=== PATIENT | female | born 1960 | race Caucasian/White ===

== ENCOUNTER 2016-11-06 22:38 | Inpatient (IN) | payer OTHER, MEDICARE ==
[~2016-11-06] VITALS: Ht 167.6 cm; Wt 81.6 kg
--- NOTE | 2016-11-06 22:46 | NUR ---
PT BIBA FROM HOME WITH AMS. PER EMS FAMILY STATES PT HAS BEEN ALTERED, CONFUSED AND BARELY SPEAKING SINCE SATURDAY. PER EMS PT ALSO FELL EARLIER FROM WHEELCHAIR. UNKNOWN IF PT HIT HEAD. PT NONVERBAL AT THIS TIME. FAMILY ON THE WAY.
[2016-11-06 22:57] LABS: ABSOLUTE BASOPHIL COUNT 0.1 /CUMM (0.0-0.2); ABSOLUTE EOSINOPHIL COUNT 0.1 /CUMM (0.0-0.7); ABSOLUTE GRANULOCYTE CT 7.9 /CUMM (1.4-6.5); ABSOLUTE LYMPH COUNT 1.2 /CUMM (1.2-3.4); ABSOLUTE MONOCYTE COUNT 0.7 /CUMM (0.10-0.60); BASOPHIL % 0.5 % (0.0-2.0); EOSINOPHIL % 1.4 % (0-5); GRANULOCYTE % 79.3 % (42.2-75.2); HEMATOCRIT 21.8 % (37-47); MEAN CORPUSCULAR HGB 26.3 PG (27.0-31.0); MEAN CORPUSCULAR HGB CONC 31.5 G/DL (33.0-37.0); MEAN CORPUSCULAR VOLUME 83.6 FL (81.0-99.0); MEAN PLATELET VOLUME 8.8 FL (7.4-10.4); RBC DISTRIBUTION WIDTH 28.3 % (11.5-14.5); WHITE BLOOD CELL COUNT 9.9 /CUMM (4.8-10.8)
--- NOTE | 2016-11-06 23:06 | ED GENERAL ADULT ---
History of Present Illness General Chief Complaint: Altered Mental Status Stated Complaint: BIBA WITH AMS Source: patient, family, old records, EMS Exam Limitations: clinical condition, confusion Allergies Coded Allergies: NO KNOWN ALLERGIES (03/13/14) Triage Note: PT BIBA FROM HOME WITH AMS. PER EMS FAMILY STATES PT HAS BEEN ALTERED, CONFUSED AND BARELY SPEAKING SINCE SATURDAY. PER EMS PT ALSO FELL EARLIER FROM WHEELCHAIR. UNKNOWN IF PT HIT HEAD. PT NONVERBAL AT THIS TIME. FAMILY ON THE WAY. Triage Nurses Notes Reviewed? yes HPI: Patient is a 56-year-old female brought in by ambulance for evaluation of confusion. Daughter reports that since Saturday patient has been lethargic, confused, her speech has appeared slurred and her pupils dilated. Patient was found on the floor at home at 9 PM this evening. Patient lives with her boyfriend who is out of the house from 11 AM to 9 PM, unsure what precipitated the fall or how long patient was on the floor for. Patient has a baclofen pump, patient's daughter reports that it was recently filled. Patient takes xarelto for history of DVT. Patient reports that she has not taken any extra doses of her medications. No reported alcohol intake or illicit substance ingestion. No known abnormal bleeding. (DARRYL SILVER,TEAGAN) Vital Signs & Intake/Output Vital Signs & Intake/Output Vital Signs Date Time Temp Pulse Resp B/P Pulse O2 O2 Flow FiO2 Ox Delivery Rate 11/08 0348 98.5 77 18 117/59 97 Nasal 4.0L Cannula 11/08 0256 98.4 100 20 113/57 97 Room Air 11/08 0121 98.5 97 20 99/55 96 Nasal 3.0L Cannula 11/08 0115 98.8 108 20 99/55 98 Nasal 3.0L Cannula 11/08 0000 98.1 87 18 112/53 98 Nasal 4.0L Cannula 11/07 2300 99.7 104 18 104/59 95 Nasal 2.0L Cannula 11/08 2227 99.7 104 18 104/596 95 Nasal 2.0L Cannula 11/07 2199 99.7 11/07 2150 100.6 108 18 99/50 93 Nasal 2.0L Cannula 11/08 2119 98/52 11/07 2036 100.0 11/07 1916 100.2 124 20 100/54 94 Nasal 2.0L Cannula 03/15 1915 100.0 128 20 100/54 95 Nasal 2.0L Cannula 11/07 1600 96.8 96 18 123/68 96 Room Air 11/07 1518 96.7 98 18 123/60 96 Room Air 11/07 1440 97 Room Air 11/07 1205 94.1 84 18 114/76 97 Room Air 11/07 1145 80 18 96/53 96 Room Air 11/07 0815 96.8 84 20 132/74 99 Room Air ED Intake and Output 11/08 0000 11/07 1200 Intake Total 2400 0 Output Total 675 Balance 1725 0 Intake, IV 2400 Intake, Oral 0 Output, Urine 675 Patient 180 lb Weight Reconcile Medications Rivaroxaban (Xarelto) 20 MG TABLET 20 MG PO DAILY BLOOD THINNER (Reported) (DEZ TRAMMELL,KIM Harman) Past History Travel History Traveled to [place] past 21 day No Medical History Any Pertinent Medical History? see below for history Neurological: multiple sclerosis Blood Disorders: DVT Influenza Vaccine: 07/01/09 Surgical History Surgical History: indwelling baclofen pump Psychosocial History Who do you live with Significant Other Services at Home None What is your primary language Mauritian ETOH Use: denies use Illicit Drug Use: denies illicit drug use Family History Hx Contributory? No (TEAGAN GREEN) Review of Systems Review of Systems Constitutional: Denies: chills, fever. EENTM: Reports: no symptoms. Respiratory: Denies: cough, short of breath. Cardiovascular: Reports: peripheral edema (chronic). Denies: chest pain, syncope. GI: Denies: abdominal pain, diarrhea, vomiting. Genitourinary: Reports: no symptoms. Musculoskeletal: Reports: muscle stiffness (chronic). Skin: Reports: no symptoms. Neurological/Psychological: Reports: see HPI, confusion. Denies: headache. Hematologic/Endocrine: Denies: bruising, bleeding. Immunologic/Allergic: Denies: splenectomy. (TEAGAN GREEN) Physical Exam Physical Exam General Appearance: awake, lethargic Head: atraumatic, normal appearance Eyes: Bilateral: normal appearance, PERRL, EOMI. Ears, Nose, Throat: normal pharynx, normal ENT inspection, hearing grossly normal Neck: normal inspection, supple, full range of motion Respiratory: normal breath sounds, chest non-tender, no respiratory distress, lungs clear Cardiovascular: regular rate/rhythm Gastrointestinal: soft, non-tender Rectal: EXTERNAL HEMORRHOID, FECAL IMPACTION RECTALLY, BROWN STOOL HEME-NEGATIVE Back: normal inspection Extremities: 3+ BILATERAL LOWER EXTREMITY EDEMA Neurologic/Psych: awake, disoriented to place and time Skin: skin breakdown to buttocks. exocriations to lower extremities Lymphatic: no anterior cervical ivon Core Measures ACS in differential dx? No CVA/TIA Diagnosis: No Severe Sepsis Present: No Septic Shock Present: No (TEAGAN GREEN) Progress Differential Diagnoses I considered the following diagnoses in my evaluation of the patient: MS exacerbation, ICH, anemia, polysubstance, internal bleed, sepsis, hepatic encephalopathy, seizure, baclofen withdrawal Initial ED EKG: normal sinus rhythm, no acute ischemic st/t changes Hand-Off Endorsed To: DEZ TRAMMELL,KIM Harman Endorsed Time: 4 Pending: CT, labs (TEAGAN GREEN) Plan of Care: Orders Procedure Date/time Status Nothing by Mouth 11/08 B Active CBC WITHOUT DIFFERENTIAL 11/08 0600 Complete Transfer patient to 11/08 0542 Active Lab Add-on Test 11/08 0500 Active TROPONIN LEVEL 11/08 0500 Complete ICU LAB BUNDLE 11/08 0500 Complete EKG 11/08 0500 Active VRE ACTIVE SURVIELLANCE 11/08 0437 Active ACTIVE SURVEILLANCE NARES 11/08 0437 Active BLOOD PRODUCT PICKUP 11/08 0045 Active LEUKOCYTE POOR (PACKED CELLS) 11/08 0021 Active OXYGEN SETUP (GEN) 11/08 UNK Complete Heart Healthy Diet 11/07 D Complete CULTURE,URINE 11/07 2304 Active ARTERIAL BLOOD GAS (GEN) 11/07 2150 Complete LACTIC ACID 11/07 2150 Complete CORTISOL PM 11/07 2150 Complete CBC WITHOUT DIFFERENTIAL 11/07 2150 Complete CALCIUM 11/07 2150 Complete Transfer patient to 11/07 2148 Active TROPONIN LEVEL 11/07 2053 Complete EKG 11/07 1937 Active FingerStick- Glucose 11/07 1929 Active ELECTROENCEPHALOGRAM 11/07 1753 Active Vital Signs 11/07 1532 Active House Staff 11/07 0853 Active Change service to 11/07 0853 Active CYTOLOGY SPECIMEN 11/07 0806 Active Therapeutic Activities 11/07 UNK Complete Therapeutic Exercise 11/07 UNK Complete PT EVAL MOD COMPLEX 30 MIN 11/07 UNK Complete Current Medications Sig/Sydni Start time Last Medication Dose Stop Time Status Admin Acetaminophen 650 MG Q6P PRN 11/07 0430 AC (Tylenol) Laboratory Tests 11/08/16 0600: Anion Gap 5, Estimated GFR > 60, Glucose 80, Calcium 10.1, Phosphorus 2.6, Magnesium 1.7, Total Bilirubin 1.0, AST 42 H, ALT 51, Troponin I 0.08, Albumin 2.7 L, CBC w Diff NO MAN DIFF REQ, RBC 3.05 L, MCV 82.9, MCH 26.7 L, RDW 23.8 H, MPV 9.5, Gran % 77.8 H, Lymphocytes % 13.8 L, Monocytes % 7.3, Eosinophils % 0.5, Basophils % 0.6, Absolute Granulocytes 7.9 H, Absolute Lymphocytes 1.4, Absolute Monocytes 0.7 H, Absolute Eosinophils 0.1, Absolute Basophils 0.1, PUBS MCHC 32.2 L 11/07/16 2252: Lactic Acid 0.6 L, Calcium 9.6, Cortisol PM Sample 20.3 H, CBC w Diff NO MAN DIFF REQ, RBC 2.69 L, MCV 81.2, MCH 26.0 L, RDW 25.6 H, MPV 9.7, Gran % 75.7 H, Lymphocytes % 14.9 L, Monocytes % 7.6, Eosinophils % 0.8, Basophils % 1.0, Absolute Granulocytes 6.8 H, Absolute Lymphocytes 1.3, Absolute Monocytes 0.7 H, Absolute Eosinophils 0.1, Absolute Basophils 0.1, PUBS MCHC 32.0 L 11/07/16 2240: pH 7.43, pCO2 38, pO2 91, HCO3 24, ABG O2 Sat (Measured) 95.0 L, P-50 (Temp Corrected) N, Carboxyhemoglobin 1.0 L, O2 Concentration % 2L, Temperature 99.7, O2 Delivery Method NC, Phlebotomy Draw Site RIGHT RADIAL 11/07/161: Troponin I 0.02 11/07/162051: Troponin I Cancelled Microbiology 11/08 414 UPPER RESP: Surveillance Culture - RECD 11/08 414 GI: Surveillance Culture - RECD 11/08 2307 URINE ROUT: Urine Culture - RECD 11/06/2016 11:38:42 PM: Discussed with Dr. Huber. Patient's daughter consented for blood transfusion for patient after risks and benefits discussed. Signed out to Dr. Huber at shift change with CT scans pending (TEAGAN GREEN) Diagnostic Imaging: Discussed w/RAD: Radiology Read, CT Scan. CXR Impression: PATIENT: FERNY KURTZ PRESENT AGE: 56 PATIENT ACCOUNT NO: [id number] : 60 LOCATION: [facility] ORDERING PHYSICIAN: TEAGAN SILVER SERVICE DATE: 11/06/16 EXAM TYPE: RAD - XRY- PORTABLE CHEST XRAY EXAMINATION: XR PORTABLE CHEST CLINICAL INFORMATION: Change in mental status. COMPARISON: None TECHNIQUE: Portable AP view of the chest was obtained. FINDINGS: Cardiac leads overlie the chest. The lungs are well expanded. Hazy basilar opacities are present. Possible small left pleural effusion. No pneumothorax. The cardiomediastinal silhouette is unremarkable for this technique. Chronic healed left lateral rib fractures are suspected. IMPRESSION: Smaller pleural effusion. Hazy basilar opacities may represent atelectasis or pneumonia. DICTATED BY: VINCENZO PARADA MD DATE/TIME DICTATED: 11/07/16117 FIELD LIABILITY GENERALIST:DIEGO DATE/TIME TRANSCRIBED:11/07/16117 CONFIDENTIAL, DO NOT COPY WITHOUT APPROPRIATE AUTHORIZATION. <Electronically signed in Other Vendor System> SIGNED BY: VINCENZO PARADA MD 11/07/16 012 (DEZ TRAMMELL,KIM Harman) Departure Departure Disposition: STILL A PATIENT Condition: Stable Clinical Impression Primary Impression: Altered mental status Secondary Impressions: Anemia, Hematuria Referrals: AMERICA MAYORGA MD (PCP/Family) Departure Forms: Customer Survey General Discharge Information (TEAGAN GREEN) Admission Note Spoke With: HUSSEIN HODGES MD Documentation of Exam: Documentation of any treatments & extenuating circumstances including Concerns Regarding Discharge (functional status, medication knowledge or non-compliance, living conditions, etc.) that warrant an admission rather than observation: Patient has persistent altered mental status of an unclear etiology. Given this she is a poor candidate for outpatient management she would be incapable of complying or following outpatient treatment instructions. In addition she has a severe anemia of an unclear etiology. I feel the patient requires hospitalization, blood transfusion and a follow-up CBC. She should also have an evaluation of her anemia and GI consultation should be considered. The cause of her altered mental status should also be investigated more thoroughly and neurology consultation should be considered. I feel she'll require a multiple day hospitalization. PA/WINDOW INSTALLATION SUBCONTRACTOR Co-Sign Statement Statement: ED Attending supervision documentation- [x] I saw and evaluated the patient. I have also reviewed all the pertinent lab results and diagnostic results. I agree with the findings and the plan of care as documented in the PA's/WINDOW INSTALLATION SUBCONTRACTOR's documentation. [] I have reviewed the ED Record and agree with the PA's/WINDOW INSTALLATION SUBCONTRACTOR's documentation. [] Additions or exceptions (if any) to the PAs/WINDOW INSTALLATION SUBCONTRACTOR's note and plan are summarized below: [] (DEZ TRAMMELL,KIM Harman) Critical Care Note Critical Care Note Critical Care Time: 30-74 min (DARRYL SILVER,TEAGAN)
[2016-11-06 23:16] LABS: PLATELET COUNT 146 /CUMM (130-400)
--- NOTE | 2016-11-06 23:19 | NUR ---
CRITICAL TEST RESULTS [id number] FERNY KURTZ 56 F TESTS AND RESULTS: HGB 6.9 HCT 21.8 Results received and read back by: DAVID OLSON Results received date and time: 11/06/16 7777 The following provider was notified of the results, and read the results back: NADEEM ANDREWS Notified date and time: 11/06/16 at 6739
--- NOTE | 2016-11-07 00:29 | NUR ---
PT A/O X3. PT ABLE TO FOLLOW COMMANDS. PT ANSWERS QUESTIONS. PT WITH BASELINE SLUR SPEECH PER FAMILY. PT DENIES PAIN. RESP UNLBAORED. NO APPARENT DISTRESS. WILL CONTINUE TO MOINTOR
--- NOTE | 2016-11-07 00:31 | NUR ---
PT PRESENT WITH BILAT FOOT EDEMA. FEET HARD. ABRASION NOTED IN LEFT FOOT
--- NOTE | 2016-11-07 00:48 | NUR ---
AMMONIA DRAWN AND SENT BY THIS RN ON ICE
--- NOTE | 2016-11-07 00:50 | NUR ---
BLOOD PRODUCTS HUNG
[2016-11-07] MEDS ORDERED: XARELTO20 M2 PO (01:00)
--- NOTE | 2016-11-07 01:00 | CT SCAN REPORT ---
EXAMINATION: CT HEAD WITHOUT CONTRAST CLINICAL INFORMATION: Confusion. On Xarelto. Rule out bleed. COMPARISON: MRI from 02/21/2009 TECHNIQUE: Contiguous axial imaging was performed from the skull base to vertex without intravenous contrast. DLP: 529 mGy-cm. FINDINGS: There is no evidence of acute intracranial hemorrhage or territorial infarction. No abnormal mass effect or midline shift is seen. Otto to white matter differentiation is well preserved. No extra-axial fluid collections are identified. No hydrocephalus. No significant volume loss. There is hypoattenuation seen in the white matter, particularly in the periventricular region. This is similar to the appearance on the prior MRI. The pattern raises suspicion for demyelinating disease. Small vessel ischemic changes are a consideration as well. The osseous structures and soft tissues are normal. The mastoid air cells and visualized portions of the paranasal sinuses are well aerated. IMPRESSION: No acute intracranial pathology. No acute hemorrhage. Diffuse white matter hypoattenuation, corresponding to area of T2 signal abnormality on prior MRI. Demyelinating disease is a consideration with this appearance.
--- NOTE | 2016-11-07 01:01 | CT SCAN REPORT ---
EXAMINATION: CT ABDOMEN AND PELVIS WITH CONTRAST CLINICAL INFORMATION: Anemia on Xarelto, change in mental status. Evaluate for bleed or infection. COMPARISON: CT of the abdomen and pelvis 05/22/2016. TECHNIQUE: Multidetector volumetric imaging was performed of the abdomen and pelvis before and after the IV administration of 94 mL of Optiray 320. intravenous contrast. Sagittal and coronal reformatted images were obtained on the technologist's workstation. DLP: 517.54 mGy-cm FINDINGS: LUNG BASES: There is a focal area of probable scarring at the left lateral lung base, improved since the prior study. There is additional mild dependent atelectasis. LIVER, GALLBLADDER, AND BILIARY TREE: The liver is normal in size, shape, and attenuation. No focal hepatic lesion or biliary ductal dilatation is present. Multiple gallstones are again noted. PANCREAS: Unremarkable. SPLEEN: Unremarkable. ADRENAL GLANDS: Unremarkable. KIDNEYS AND URETERS: The kidneys are normal in size, shape, and attenuation. No hydronephrosis, hydroureter, or calculi seen. No perinephric stranding. BLADDER: Bladder wall thickening is again noted. GASTROINTESTINAL TRACT: Large amount of stool is again noted in the colon, most prominently in the rectum. There is no evidence of associated bowel obstruction. The small bowel is unremarkable. The appendix is not visualized. ABDOMINAL WALL/PERITONEAL CAVITY: No hernia is identified. There is no retroperitoneal hemorrhage. LYMPH NODES: Normal. VASCULAR: Unremarkable. PELVIC VISCERA: Unremarkable. OSSEOUS STRUCTURES: There is stable mild degenerative changes in the spine and both hips. IMPRESSION: 1. Improved mild scarring at the left lung base. 2. Stable cholelithiasis. 3. Stable large amount of stool in the colon. 4. No evidence of intraperitoneal or retroperitoneal hemorrhage.
--- NOTE | 2016-11-07 01:22 | RADIOLOGY REPORT ---
EXAMINATION: XR PORTABLE CHEST CLINICAL INFORMATION: Change in mental status. COMPARISON: None TECHNIQUE: Portable AP view of the chest was obtained. FINDINGS: Cardiac leads overlie the chest. The lungs are well expanded. Hazy basilar opacities are present. Possible small left pleural effusion. No pneumothorax. The cardiomediastinal silhouette is unremarkable for this technique. Chronic healed left lateral rib fractures are suspected. IMPRESSION: Smaller pleural effusion. Hazy basilar opacities may represent atelectasis or pneumonia.
--- NOTE | 2016-11-07 02:00 | NUR ---
PT SLEEPING. RESP UNLABORED. NO APPARENT DISTRESS
--- NOTE | 2016-11-07 03:39 | NUR ---
BLOOD TRANFUSION COMPLETE. NO REACTION NOTED.
--- NOTE | 2016-11-07 03:39 | History & Physical ---
ARLENE TRAMMELL,CORRIE 11/07/16 0339: General Information and [facility] MD Statement: I have seen and personally examined FERNY KURTZ and documented this H&P. The patient is a 56 year old F who presented with a patient stated chief complaint of [AMS]. Source of Information: patient, family, old records Exam Limitations: confusion, poor historian History of Present Illness: This is a 56-year-old female with past medical history significant for MS with baclofen pump and wheelchair-bound, DVT on Xarelto (2008), who was brought in by ambulance for altered mental status. Much of the history is obtained via telephone from patient's daughter who is POA. Per daughter, she first noticed patient's unusual behavior on Saturday during a family gathering. She stated patient was slurring, confused, and had pinpoint pupils all of which were unusual for her mother. Last time patient was seen by daughter had been earlier that week on Saturday or Saturday and she had been at her baseline at that time. Patient lives at home with boyfriend (who she calls ) who noted some worsening confusion as the day went on and informed the patient's mother of worsening mental status around Saturday evening. He then left for 24 hour shift; in the interim, the daughter came in to check on her mother around 9 PM on Saturday and found her down. Daughter is unsure how long patient was down, as she last seen by the partner almost 24 hours ago. Daughter noted pt to be increasingly confused, and with worse slurred speech and lethargy. Daughter then called ambulance. It is unknown if patient sustained any loss of consciousness or sustained any injury to head. Upon speaking with the patient in ED, she is aware she is confused and not at her baseline. However, she is unable to give us any further details. She does not remember the fall or what precipitated it. She just states that she feels more confused since Saturday. She denies any new ingestions, but she is unable to give us a list of her medications. Patient denies any nausea, vomiting, diarrhea, bloody bowel movements, fever, chest pain, shortness of breath, pain, or blurry vision. She does endorse some worsening confusion. She is a current half pack per day smoker for 40 yrs, states she drinks every day but is unable to tell us what and how much, denies any drug abuse of any kind. She lives at home with her boyfriend who helps her with ADL and IADL. Patient is adopted so unable to obtain any further family history. Allergies/Medications Allergies: Coded Allergies: NO KNOWN ALLERGIES (03/13/14) Home Med list Rivaroxaban (Xarelto) 20 MG TABLET 20 MG PO DAILY BLOOD THINNER (Reported) Compliance With Home Meds: UNKNOWN Past History Travel History Traveled to [place] past 21 day No Medical History Any Pertinent Medical History? unobtainable Neurological: multiple sclerosis Psychiatric: depression Blood Disorders: DVT Influenza Vaccine: 07/01/09 Surgical History Surgical History: unobtainable Past Family/Social History Psychosocial History Where do you live? Home Services at Home: None Primary Language: Faroese Smoking Status: Current Everyday Smoker ETOH Use: SAYS DRINKS EVERY DAY BUT IS CONFUSED Illicit Drug Use: denies illicit drug use Power of Mail Manager/HCP? yes Name of POA/HCP: DAUGHTER Functional Ability ADLs Needs Assist: dressing, eating, toileting, bathing. Ambulation: WHEELCHAIR IADLs Needs Assist: shopping, housework, finances, food prep, telephone, transportation, medication admin. Review of Systems Review of Systems Constitutional: Reports: no symptoms. EENTM: Denies: blurred vision, visual changes, eye pain, eye drainage, ear pain, throat pain. Cardiovascular: Denies: chest pain, palpitations, syncope. Respiratory: Denies: cough, short of breath, wheezing. GI: Denies: abdominal pain, diarrhea, melena, bloody stool, changes in stool, vomiting. Genitourinary: Reports: no symptoms. Musculoskeletal: Reports: muscle pain, muscle stiffness. Skin: Reports: no symptoms. Neurological/Psychological: Reports: confusion. Denies: headache, numbness, paresthesia, petit mal seizures , tingling, tremors, tonic-clonic seizures. Hematologic/Endocrine: Reports: no symptoms. Exam & Diagnostic Data Last 24 Hrs of Vital Signs/I&O Vital Signs Date Time Temp Pulse Resp B/P Pulse O2 O2 Flow FiO2 Ox Delivery Rate 11/07 0339 96.6 70 16 141/65 96 11/07 0252 97.2 86 18 128/60 95 Room Air 11/07 0106 97.0 75 16 121/58 96 11/07 0050 97.2 83 16 113/53 95 Room Air 11/06 2240 98.2 80 16 122/70 98 Room Air Room Air Intake & Output 11/07 0800 11/07 0000 11/06 1600 Intake Total 0 Output Total Balance 0 Intake, Oral 0 Physical Exam General Appearance Alert, Oriented X3, No Acute Distress, PATIENT WAS SLOWED RESPONSE MORE QUESTIONS AND SHE TENDED TO REPEAT ANSWERS TO PREVIOUS QUESTIONS EVEN THOUGH WE HAVE MOVED ON. Skin PATIENT HAS SIGNIFICANT SKIN CHANGES AND LOWER EXTREMITIES. sHE HAS SOME PEELING OF THE SKIN AND SILVERY SCALE ON HER SHINS HEENT Atraumatic, POOR DENTITION. iN ADDITION, PATIENT HAS HORIZONTAL AND SOME COMPONENT OF VERTICAL NYSTAGMUS. sHE HAS PINPOINT PUPILS. sHE HAD DIFFICULTY WITH SMOOTH PURSUIT Neck Supple Cardiovascular Regular Rate, Normal S1, Normal S2, No Murmurs Lungs Clear to Auscultation Abdomen Normal Bowel Sounds, Soft, PATIENT HAS IMPLANTED PAIN PUMP IN LEFT LOWER QUADRANT OF ABDOMEN. sITE DOES NOT LOOK ERYTHEMATOUS. Neurological SPEECH SLURRED. ALSO SLOW IN FORMATION. Extremities has 3+ pitting edema in bilateral lower extremities with accompanying skin changes. There is a silvery scale on her teixeira. In addition to chronic venous stasis changes bilaterally. She has some sloughing of skin with serous drainagein the dorsal surface of her left lower extremity. Rectal patient has large external anal tag apparent. She also has wound underneath her left buttock. Looks to be at least stage II to 3 decub ulcer Last 24 Hrs of Labs/Josh: Laboratory Tests 11/07/16 0400: Urine Opiates Screen Pending, Methadone Screen Pending, Barbiturate Screen Pending, Ur Phencyclidine Scrn Pending, Amphetamines Screen Pending, U Benzodiazepines Scrn Pending, Urine Cocaine Screen Pending, Urine Cannabis Screen Pending, Urine Color BLDY H, Urine Clarity TURBD H, Urine pH 6.5, Ur Specific [place] 1.015, Urine Protein >=300 H, Urine Ketones TRACE H, Urine Nitrite POS H, Urine Bilirubin NEG, Urine Urobilinogen 2.0 H, Ur Leukocyte Esterase MOD H, Ur Microscopic SEDIMENT EXAMINED, Urine RBC PACKD H, Urine Hemoglobin LARGE H, Urine Glucose NEG 11/07/16 0046: Ammonia < 9 L 11/06/16 2251: Anion Gap 6, Estimated GFR > 60, BUN/Creatinine Ratio 43.3 H, Glucose 70, Lactic Acid 1.0, Calcium 11.3 H, Total Bilirubin 0.5, AST 55 H, ALT 70 H, Alkaline Phosphatase 221 H, Creatine Kinase 233 H, Troponin I < 0.01, Total Protein 6.6, Albumin 3.7, Globulin 2.9, Albumin/Globulin Ratio 1.3, TSH &T3 & Free T4 Intrp 2.100, CBC w Diff NO MAN DIFF REQ, RBC 2.60 L, MCV 83.6, MCH 26.3 L, RDW 28.3 H, MPV 8.8, Gran % 79.3 H, Lymphocytes % 12.1 L, Monocytes % 6.7 , Eosinophils % 1.4, Basophils % 0.5, Absolute Granulocytes 7.9 H, Absolute Lymphocytes 1.2, Absolute Monocytes 0.7 H, Absolute Eosinophils 0.1, Absolute Basophils 0.1, PUBS MCHC 31.5 L, Serum Alcohol < 10.0 Microbiology 11/07 453 URINE ROUT: Urine Culture - ORD 11/07 453 BLOOD: Blood Culture - ORD 11/07 453 BLOOD: Blood Culture - ORD Assessment/Plan Assessment: This is a 56-year-old female with past medical history of MS not on treatment, DVT on Xarelto, who presents with chief complaint difficulty AMS. In ED patient was found to have anemia, hematuria, and elevated calcium. Differential diagnosis for AMS in this patient includes hypercalcemia, acute anemia, acute delirium, dehydration, worsening/ new lesion of MS, stroke, TIA. We will admit patient to general medicine for further workup and management. Workup in ED showed Vitals: 97.0, 75, 16, 121/58, 96. CBC showed white count 9.9, hemoglobin 6.9, hematocrit 21.8, platelet 146. BEP showed sodium 139, potassium 5.0, chloride 103, bicarbonate 31, BUN 26, creatinine 0.6. Glucose 70. AST 55, ALT 70, alkaline phosphatase 221, calcium 11.3, CK 233. Negative lactic acid, negative troponin 1, normal TSH and T4. Negative ammonia. CT ABD/PELVIS IMPRESSION: 1. Improved mild scarring at the left lung base. 2. Stable cholelithiasis. 3. Stable large amount of stool in the colon. 4. No evidence of intraperitoneal or retroperitoneal hemorrhage. CXR IMPRESSION: Smaller pleural effusion. Hazy basilar opacities may represent atelectasis or pneumonia. HEAD CT IMPRESSION: No acute intracranial pathology. No acute hemorrhage. Diffuse white matter hypoattenuation, corresponding to area of T2 signal abnormality on prior MRI. Demyelinating disease is a consideration with this appearance. Plan 1. Altered mental status: At this time several etiologies for AMS include hypercalcemia, anemia, TIA, stroke, delirium, worsening of MS, or unknown ingestion. Head CT did not show evidence of stroke and fact that confusion lasts over 24 hours suggests this is not a TIA. Additionally, no new demyelinating lesions were noted in the CT however MRI does have better resolution. Patient does have calcium 11.3. It is possible that hypercalcemia is causing change in mental status. Cannot rule out acute delirium, or dehydration etc. * Check folate * Check B12 * Neuro consult * Hydration * Check urine tox * Check urine lites * Check UA/UC * Neuro check * Panculture 2. Anemia: Patient had hemoglobin 6.9, hematocrit 21.8. She has history of Xarelto secondary to DVT in 2008. During her physical exam we noted her pad was soaked with red colored urine. Patient states she is not sexually active and she is no longer menstruating. She denies any itching, burning, hesitancy of urination. * Kauffman catheter insertion * Strict I's and O's * Urology consult * Iron studies * type and cross * TX 1uPRBC 3. Hypercalcemia: Patient has hypercalcemia of 11.3. She does have previous noted elevated calciums. However this is the highest number recorded. She does not have any history of malignancy. No family history available as patient is adopted. Given elevated calcium and anemia cannot rule out multiple myeloma. However patient denies any bone pain. At this time, we are still unsure of patient's medication list. Unsure if that hypercalcemia secondary to the med she might be taking. * Check magnesium * Check PTH * Check vitamin D * SPEP * UPEP * Urine electrolytes * pt's family will bring in home meds in AM 4. MS: Patient has extensive history of multiple sclerosis, and dissection is not follow-up with a neurologist and it does not seem like she is taking any appropriate medication. Consider MRI for further evaluation for new lesions. Additionally, we are unsure if patient is being adequately cared for at home given the difficulties of her disease. Her CT does show old healed rib fractures. And she was left over 24 hours without any supervision, during which time it is unclear how she is able to eat, bathe, toilet herself. Patient also has implanted pain pump baclofen which was placed by a Dr. Napoles in [place]. * Neurology consult * Social work consult * PT/OT consult * Call Dr. Napoles's office in AM and f/u on pump, medication, dose etc. 7. Constipation: Patient is noted to have chronic constipation, according to daughter sometimes weeks. CT shows large amount of stool in the rectum. Patient is on Senokot at home for bowel regimen. * Aggressive bowel regimen * Guaiac all stool 8. History of DVT started on Xarelto: At this time we will hold off Xarelto given that patient is having brynn hematuria and anemia. * Hold Xarelto * ALPS 9. EtOH??: Patient states she drinks every day but is unable to quantify how much or what she drinks. Unsure if this is true or patient is confused. * Consider CIWA protocol if confused Full code Nothing by mouth pending swallow eval Mechanical DVT prophylaxis As Ranked By This Provider Problem List: 1. Altered mental status 2. Anemia Core Measures/Miscellaneous Acute Coronary Syndrome ACS Diagnosis: No Cerebrovascular Accident CVA/TIA Diagnosis: No Congestive Heart Failure CHF Diagnosis: No Venous Thromboembolism VTE Risk Factors: Acute medical illness, Age > 40, Previous VTE, [facility] prophylaxis d/t: No contraindications No VTE Pharm Prophylaxis d/t: Anticoagulation not manjinder VTE Diagnosis: No VTE Type: NONE VTE Confirmed by (Test): NONE Severe Sepsis Severe Sepsis Present: No Septic Shock Septic Shock Present: No Miscellaneous Documentation Attending Case Discussed With: HUSSEIN HODGES MD Primary Care Physician: AMERICA MAYORGA MD Patient sees these Specialists UNKNOWN Level of Patient Care: General Medicine NEREIDA SANTOS 11/07/16 0420: Resident Review Statement Resident Statement: examined this patient, discussed with internet consultant, agreed with internet consultant Other Findings: Patient is a 56-year-old woman with a past medical history significant for multiple sclerosis-wheel chair bound, not on any meds ,hx of scoliosis, Lleft leg DVT on Xarelto(2008) presented to the ED for evaluation of altered mental status and weakness and lethargy. patient still appeared confused in the ED, Alert oriented 2 was most of the history was obtained from the daughter. According to the daughter she seemed to be confused on Saturday with slurring of speech, today when she went to visit her at around 9 PM, found her on the floor confused. Patient lives with her boyfriend, who helps her in ADLS and IADLs, the boyfriend had 24 hour shift on Saturday night, the patient Alone during that time , and it was not clear whether she lost consciousness and how long she was On the floor.The daughter was concerned and brought to the ED for further evaluation. Daughter mentioned that she is on baclofen pump due to spasticity from multiple sclerosis, that was recently that was recenlty filled in, No hx of drug abuse.she smokes on a daily basis half pack a day for more than 40 years, does not drink alcohol.ROS is negative . In the ED,she was found to be severely anemic H&H of 6.9/21 received 1 unit of packed RBC. She was incontinent and Kauffman catheter was placed that revealed large amount of blood in the urine.( nurse told us that she had a lot of resistance on putting the Kauffman catheter). Vital signs: Temperature 98.0, pulse 80, respiratory rate 16, blood pressure 122/70 on room air. Appearance: Alert and oriented x2, Skin: Grossly normal. HEENT:pinpoint pupils reactive to light reflex, visible nystagmus Neck: Supple, No JVD Cardiovascular: Regular Rate, Normal S1, Normal S2, No Murmurs Lungs: Lungs clear to auscultation bilaterally Abdominal exam:normal bowel sounds without any tenderness, baclofen pump in the left quadrant. Neurological: Neuro exam intact grossly. Extremities: stage 2 skin ulcer on the left buttock region, with visible anorectal tag. Vascular: Normal Pulses. Pertinent labs on admission: Normal WBC count,, H&H low 6.9/21.8 baseline of 10.2 / 32.27 March 2016, normal BEP, normal BUN and creatinine,hypercalcemia 11.3 with a corrected of 11.43, transaminitis, elevated CPK 232, normal thyroid functions. UA :positive for leucocyte -estrase and nitrite. EKG: Normalsinus rhythm with prolonged CA interval, first-degree heart block. Head CT scan: No acute intracranial pathology. No acute hemorrhage. Diffuse white matter hypoattenuation, corresponding to area of T2 signal abnormality on prior MRI. Demyelinating disease is a consideration with this appearance. CT abdomen and pelvis: 1. Improved mild scarring at the left lung base. 2. Stable cholelithiasis. 3. Stable large amount of stool in the colon. 4. No evidence of intraperitoneal or retroperitoneal hemorrhage. Chest x-ray: Smaller pleural effusion. Hazy basilar opacities may represent atelectasis or pneumonia. Assessment and plan: 1.Altered mental status/Metabolic Encephalopathy(differentials include worsening multiple sclerosis,acute hypercalcemia, dehydration, worsening constipation, , infectious process,) * admit the patient [facility] floor. * Neurochecks every 4-6 hours * Maintain hydration start the patient on normal saline at the rate of 100 mL- 150 per hr * CT scan revealed large amount of stool impaction will give Dulcolax suppository. * Avoid delirium triggers, benzodiazepines/anticholinergics/narcotics * Rule out infection, do pancultures. * Urine tox neg * obtain neurology consult in the morning * NPO for now, until becomes more oriented and cleared by speech/swallow therapist. 2.Acute blood loss anemia in the setting of hematuria with UTI: * patient received 1 unit of packed RBC will follow-up post transfusion CBC * Monitor H&H. * Start the pt on iv ceftriaxone, obtain urine culture. * Obtain urology consult in the morning for further evaluation of hematuria. 3.Hypercalcemia : * Continue fluids at rate of 100-150 ml/hr . * Check vit d,PTH ,Mg . * Rule out any underlying multiple myeloma-in setting of anemia and hypercalcemia-will do flow cytometry(SPEP,UPEP, urine lytes). 4. Elevated alkaline phosphatase withtransaminitis ( CT abdomen findings consistent with cholelithiasis w/o Lemons sign on exam : * Consider limited RUQ usd. * Check GGT. 5.History of multiple sclerosis on baclofen pump for spasticity * Please try to contact patient's physician regarding regarding further information about the baclofen pump. * PT /OT consult . * Social consult Mild to moderate pain controlled with Tylenol and tramadol DVT prophylaxis Alps Patient is full code(confirmed with the power of senior trial attorney-the daughter HUSSEIN HODGES 11/07/16 0528: Attending MD Review Statement Attending Statement Attending MD Statement: examined this patient, discuss w/resident/PA/RESIDENT DIRECTOR, agreed w/resident/PA/RESIDENT DIRECTOR, reviewed EMR data (avail), reviewed images, amended to note Attending Assessment/Plan: CC: fall, AMS PMH: MS, DVT on Xeralto, wheelchair-bound, baclofen pump No clear history available, partly obtain from patient's daughter and from patient. Patient had unwitnessed fall, unclear details. Nobody was at home, patient was found on floor when the daughter went to check on her, patient does not provide any details about fall. According to daughter patient has been confused, progressively over 2 days, slurred speech, small pupils. No further details available. Patient lives with her boyfriend/. Vitals: Afebrile, pulse, RR, blood pressure, O2 saturation within acceptable range. On examination A O 2, no acute distress, slow to respond, ?Secondary deficit, slow speech, pinpoint pupils, reactive, horizontal and vertical nystagmus, no cranial nerve deficit, upper extremity strength 4+ / 5, increased tone, lower extremity weak 2/5. Chronic stasis changes bilateral lower extremity , pitting edema, denuded skin on the dorsal aspect of left foot, pressure ulcer inferior to left buttock, obvious bleeding through Kauffman catheter, no obvious vaginal bleeding on superficial exam, CVS: S1-S2, RRR. RS: Clear" bilaterally. Abdomen: Distended, soft, NT, bowel sounds present. Pump on the left side. Labs: WBC 9.9 with neutrophils 79%, hemoglobin 6.9, MCV 83.6, RDW 28.3, platelets 146, bicarbonate 31, BUN 26, creatinine 0.6, calcium 11.3, AST 55, ALT 70, alkaline phosphatase 221, ammonia less than 9, CK 233, troponin less than 0.01 Urine grossly bloody, positive for nitrites, leukocyte esterase, U tox negative, alcohol less than 10 CT abdomen and pelvis with IV contrast, CXR, head CT: - No acute intracranial pathology. No acute hemorrhage. - Diffuse white matter hypoattenuation, corresponding to area of T2 signal abnormality on prior MRI. Demyelinating disease is a consideration with this appearance. - Smaller pleural effusion. Hazy basilar opacities may represent atelectasis or pneumonia. - Improved mild scarring at the left lung base. - Stable cholelithiasis. - Stable large amount of stool in the colon. - No evidence of intraperitoneal or retroperitoneal hemorrhage. A and P #1 metabolic encephalopathy: unclear etiology, U tox negative, ? Related to baclofen pump, rule out infection blood culture, urine culture. UA positive for nitrites and leukocyte esterase, given hematuria, and encephalopathy, continue with IV ceftriaxone for now, follow up with cultures. Check vitamin B12, folic acid, neurology consult, no worsening of intracranial lesions on CT scan? MRI ( but patient has baclofen pump, may not be compatible) (history of MS) #2 anemia: Normocytic, unclear if it is acute versus chronic. Patient does not have any GI bleed, guaiac negative stool. But she does have brynn hematuria. Hold Xeralto, type and screen 2 units, transfuse 1 unit, add iron studies to previous sample in lab #3 gross hematuria: Initial attempt to put Kauffman catheter in ER had dark red urine, and catheter came out with balloon. Second attempt had somewhat resistance but no trauma, even the catheter in place urine leaking from side, CT pelvis does not mention any bladder pathology, consult urology in a.m. continue Kauffman catheter #4 hypercalcemia : Continue IV fluid at 150 mL normal saline, check vitamin D, PTH, magnesium, SPEP, UPEP (in setting of hypercalcemia and anemia) #5 elevated alkaline phosphatase with mild transaminitis : Check GGT, CT abdomen shows cholelithiasis, no Lemons sign, consider right upper quadrant ultrasound in a.m. to rule out any cholecystitis is the source of infection for encephalopathy. #6 history of MS: Not on any medication except baclofen pump #7 swallow evaluation, OT PT, wound care consult, Dulcolax suppository for constipation, social work consult
--- NOTE | 2016-11-07 03:56 | NUR ---
#14 [place] [place] INSERTED W/SOME RESISTANCE MET-- BLOOD TINGED URINE RETD. IRRIGATED W/100ML OF SALINE--CONTINUES TO DRAIN SM AMTS OF BLOOD TINGED URINE
--- NOTE | 2016-11-07 04:04 | NUR ---
URINE SAMPLE SENT TO LAB
--- NOTE | 2016-11-07 05:30 | Admission Certification ---
Admission Certification Certification Statement - As attending physician, I certify that at the time of - admission, based on clinical presentation, severity of - symptoms, need for further diagnostic testing and - therapeutic interventions, and risk of adverse outcomes - without in-hospital treatment, in my clinical assessment, - this patient requires an acute hospital stay for a minimum - of two nights or longer. I have also considered psychsocial - factors such as support system, advanced age, financial - issues, cognitive issues, and failed out-patient treatments, - past re-admission history, safety of patient, and lack of - compliance as applicable. Specific rationale supporting this admission is: Encephalopathy, anemia, hypercalcemia
--- NOTE | 2016-11-07 06:26 | NUR ---
PT CONTINUES TO SLEEP. AROUSABLE TO VERBAL STIMULATION. RESP UNLABORED. NO APPARENT DISTRESS.
[2016-11-07 06:45] LABS: ABSOLUTE BASOPHIL COUNT 0 /CUMM (0.0-0.2); ABSOLUTE EOSINOPHIL COUNT 0.1 /CUMM (0.0-0.7); ABSOLUTE LYMPH COUNT 1.1 /CUMM (1.2-3.4); ABSOLUTE MONOCYTE COUNT 0.4 /CUMM (0.10-0.60); BASOPHIL % 0.3 % (0.0-2.0); EOSINOPHIL % 1.4 % (0-5); GRANULOCYTE % 78.7 % (42.2-75.2); HEMATOCRIT 23.5 % (37-47); MEAN CORPUSCULAR HGB 26.1 PG (27.0-31.0); MEAN CORPUSCULAR VOLUME 81.5 FL (81.0-99.0); MEAN PLATELET VOLUME 9.1 FL (7.4-10.4); PLATELET COUNT 119 /CUMM (130-400); RBC DISTRIBUTION WIDTH 24.8 % (11.5-14.5); RED BLOOD CELL CT 2.88 /CUMM (4.20-5.40); WHITE BLOOD CELL COUNT 7.7 /CUMM (4.8-10.8)
--- NOTE | 2016-11-07 06:45 | NUR ---
PT AWAKENED FROM SLEEP. PT A/O X3. RESP UNLABORED. PT DENIES PAIN, SOB, DIZZINESS.
--- NOTE | 2016-11-07 07:30 | NUR ---
ASSUMED CARE, PT SLEEPING.
--- NOTE | 2016-11-07 08:02 | Cons- Urology ---
General Information and HPI Consulting Request Date of Consult: 11/07/16 Requested By: HUSSEIN HODGES MD Reason for Consult: hematuria Source of Information: patient, old records Exam Limitations: no limitations History of Present Illness: 56 year old sent to ER with MS changes. Pt currently cooperative and alert with mildly slurred speech. CT scan reviewed. pt NOT certain if she has ever had hematuria before torres inertion in ER, currently pain free. Allergies/Medications Allergies: Coded Allergies: NO KNOWN ALLERGIES (03/13/14) Home Med List: Rivaroxaban (Xarelto) 20 MG TABLET 20 MG PO DAILY BLOOD THINNER (Reported) Current Medications: Current Medications Sig/Sydni Start time Last Medication Dose Route Stop Time Status Admin Acetaminophen 1,000 MG Q8P PRN 11/07 0445 AC N/A 1 UNIT IV Acetaminophen 650 MG Q6P PRN 11/07 0430 AC PO Bisacodyl 10 MG ONCE ONE 11/07 0330 DC 11/07 NV 11/07 0331 0517 Ceftriaxone Sodium 1,000 MG DAILY 11/07 1000 AC IV Diclofenac Sodium 0 4 TIMES/DAY PRN 11/07 0330 CAN TOP Oxycodone HCl 5 MG Q6PRN PRN 11/07 0330 CAN PO Oxycodone/ 2 TAB Q6P PRN 11/07 0330 CAN Acetaminophen PO Sodium Chloride 1,000 ML Q6H 11/07 0745 CAN IV Sodium Chloride 1,000 ML Q10H 11/07 0330 AC 11/07 IV 0421 Tramadol HCl 50 MG Q8P PRN 11/07 0330 CAN PO Past History Medical History Neurological: multiple sclerosis Psychiatric: depression Blood Disorders: DVT Surgical History Pertinent Surgical History: unobtainable Psychosocial History Where Do You Live? Home Services at Home: None Primary Language: Niuean Smoking Status: Current Everyday Smoker ETOH Use: SAYS DRINKS EVERY DAY BUT IS CONFUSED Illicit Drug Use: denies illicit drug use Power of Production Supervisor Trainee/HCP? yes Name of POA/HCP: DAUGHTER Functional Ability ADLs Needs Assist: dressing, eating, toileting, bathing. Ambulation: WHEELCHAIR IADLs Needs Assist: shopping, housework, finances, food prep, telephone, transportation, medication admin. Employment History Retired? unknown Review of Systems Review of Systems Constitutional: Denies: no symptoms. EENTM: Denies: no symptoms. Cardiovascular: Denies: no symptoms. Respiratory: Denies: no symptoms. Genitourinary: Reports: hematuria. Musculoskeletal: Denies: no symptoms. Skin: Denies: no symptoms. Exam & Diagnostic Data Vital Signs and I&O Vital Signs Date Time Temp Pulse Resp B/P Pulse O2 O2 Flow FiO2 Ox Delivery Rate 11/07 0642 97.7 81 18 125/60 96 11/07 0626 96.1 73 18 108/53 98 Room Air 11/07 0339 96.6 70 16 141/65 96 11/07 0252 97.2 86 18 128/60 95 Room Air 11/07 0106 97.0 75 16 121/58 96 11/07 0050 97.2 83 16 113/53 95 Room Air 11/06 2240 98.2 80 16 122/70 98 Room Air Room Air Intake & Output 11/07 1600 11/07 0800 11/07 0000 11/06 1600 11/06 0800 11/06 0000 Intake Total 0 Output Total Balance 0 Intake, Oral 0 Physical Exam General Appearance: well developed/nourished Head: atraumatic Ears, Nose, Throat: normal pharynx Neck: normal inspection Respiratory: normal breath sounds Cardiovascular: regular rate/rhythm Gastrointestinal: normal bowel sounds Back: no vertebral tenderness Extremities: normal inspection Skin: intact Reproductive: Normal female genitalia Last 24 Hours of Labs: Laboratory Tests 11/07 11/07 0638 0400 Chemistry Sodium (137 - 145 mmol/L) 139 Potassium (3.5 - 5.1 mmol/L) 4.5 Chloride (98 - 107 mmol/L) 105 Carbon Dioxide (22 - 30 mmol/L) 27 Anion Gap (5 - 16) 7 BUN (7 - 17 mg/dL) 24 H Creatinine (0.5 - 1.0 mg/dL) 0.5 Estimated GFR (>60 ml/min) > 60 BUN/Creatinine Ratio (7 - 25 %) 48.0 H Magnesium (1.6 - 2.3 mg/dL) 1.9 25-OH Vitamin D Total (30 - 100 ng/ml) Pending PTH Intact (13.8 - 85 pg/ml) Pending Hematology CBC w Diff NO MAN DIFF REQ WBC (4.8 - 10.8 /CUMM) 7.7 RBC (4.20 - 5.40 /CUMM) 2.88 L Hgb (12.0 - 16.0 G/DL) 7.5 L Hct (37 - 47 %) 23.5 L MCV (81.0 - 99.0 FL) 81.5 MCH (27.0 - 31.0 PG) 26.1 L RDW (11.5 - 14.5 %) 24.8 H Plt Count (130 - 400 /CUMM) 119 L MPV (7.4 - 10.4 FL) 9.1 Gran % (42.2 - 75.2 %) 78.7 H Lymphocytes % (20.5 - 51.1 %) 13.9 L Monocytes % (1.7 - 9.3 %) 5.7 Eosinophils % (0 - 5 %) 1.4 Basophils % (0.0 - 2.0 %) 0.3 Absolute Granulocytes (1.4 - 6.5 /CUMM) 6.0 Absolute Lymphocytes (1.2 - 3.4 /CUMM) 1.1 L Absolute Monocytes (0.10 - 0.60 /CUMM) 0.4 Absolute Eosinophils (0.0 - 0.7 /CUMM) 0.1 Absolute Basophils (0.0 - 0.2 /CUMM) 0 PUBS MCHC (33.0 - 37.0 G/DL) 32.0 L Toxicology Urine Opiates Screen (>2000 NG/ML) < 100.00 Methadone Screen (>300 NG/ML) < 40 Barbiturate Screen (>200 NG/ML) < 60 Ur Phencyclidine Scrn (>25 NG/ML) < 6.00 Amphetamines Screen (>1000 NG/ML) < 100 U Benzodiazepines Scrn (>200 NG/ML) < 85 Urine Cocaine Screen (>300 NG/ML) < 50 Urine Cannabis Screen (>50 NG/ML) < 5.00 Urines Urine Color (YEL,AMB,STR) BLDY H Urine Clarity (CLEAR) TURBD H Urine pH (5.0 - 8.0) 6.5 Ur Specific [place] (1.001 - 1.035) 1.015 Urine Protein (NEG,<30 MG/DL) >=300 H Urine Ketones (NEG) TRACE H Urine Nitrite (NEG) POS H Urine Bilirubin (NEG) NEG Urine Urobilinogen (0.1 - 1.0 EU/dl) 2.0 H Ur Leukocyte Esterase (NEG) MOD H Ur Microscopic SEDIMENT EXAMINED Urine RBC (0 - 5 /HPF) PACKD H Urine Hemoglobin (NEG) LARGE H Urine Glucose (N MG/DL) NEG 11/07 11/06 0046 7061 Chemistry Sodium (137 - 145 mmol/L) 139 Potassium (3.5 - 5.1 mmol/L) 5.0 Chloride (98 - 107 mmol/L) 103 Carbon Dioxide (22 - 30 mmol/L) 31 H Anion Gap (5 - 16) 6 BUN (7 - 17 mg/dL) 26 H Creatinine (0.5 - 1.0 mg/dL) 0.6 Estimated GFR (>60 ml/min) > 60 BUN/Creatinine Ratio (7 - 25 %) 43.3 H Glucose (65 - 99 mg/dL) 70 Lactic Acid (0.7 - 2.1 mmol/L) 1.0 Calcium (8.4 - 10.2 mg/dL) 11.3 H Iron (37 - 170 ug/dL) 40 Ferritin (11.1 - 264 ng/mL) 13.6 Total Bilirubin (0.2 - 1.3 mg/dL) 0.5 GGT (12 - 43 U/L) 28 AST (14 - 36 U/L) 55 H ALT (9 - 52 U/L) 70 H Alkaline Phosphatase (<127 U/L) 221 H Ammonia (9 - 30 umol/L) < 9 L Creatine Kinase (30 - 135 U/L) 233 H Troponin I (< 0.11 ng/ml) < 0.01 Total Protein (6.3 - 8.2 g/dL) 6.6 Albumin (3.5 - 5.0 g/dL) 3.7 Globulin (1.9 - 4.2 gm/dL) 2.9 Albumin/Globulin Ratio (1.1 - 2.2 %) 1.3 Vitamin B12 (239 - 931 pg/mL) 844 Folate (2.76 - 20.0 ng/mL) 5.8 TSH &T3 &Free T4 Intrp (0.270 - 4.20 uIU/mL) 2.100 Hematology CBC w Diff NO MAN DIFF REQ WBC (4.8 - 10.8 /CUMM) 9.9 RBC (4.20 - 5.40 /CUMM) 2.60 L Hgb (12.0 - 16.0 G/DL) 6.9 *L Hct (37 - 47 %) 21.8 L MCV (81.0 - 99.0 FL) 83.6 MCH (27.0 - 31.0 PG) 26.3 L RDW (11.5 - 14.5 %) 28.3 H Plt Count (130 - 400 /CUMM) 146 MPV (7.4 - 10.4 FL) 8.8 Gran % (42.2 - 75.2 %) 79.3 H Lymphocytes % (20.5 - 51.1 %) 12.1 L Monocytes % (1.7 - 9.3 %) 6.7 Eosinophils % (0 - 5 %) 1.4 Basophils % (0.0 - 2.0 %) 0.5 Absolute Granulocytes (1.4 - 6.5 /CUMM) 7.9 H Absolute Lymphocytes (1.2 - 3.4 /CUMM) 1.2 Absolute Monocytes (0.10 - 0.60 /CUMM) 0.7 H Absolute Eosinophils (0.0 - 0.7 /CUMM) 0.1 Absolute Basophils (0.0 - 0.2 /CUMM) 0.1 PUBS MCHC (33.0 - 37.0 G/DL) 31.5 L Toxicology Serum Alcohol (<10 MG/DL) < 10.0 Imaging Results: PATIENT: FERNY KURTZ PRESENT AGE: 56 PATIENT ACCOUNT NO: [id number] : 60 LOCATION: [facility] ORDERING PHYSICIAN: TEAGAN SILVER SERVICE DATE: 11/06/16 EXAM TYPE: CAT - CT ABD & PELVIS W IV CONTRAST EXAMINATION: CT ABDOMEN AND PELVIS WITH CONTRAST CLINICAL INFORMATION: Anemia on Xarelto, change in mental status. Evaluate for bleed or infection. COMPARISON: CT of the abdomen and pelvis 05/22/2016. TECHNIQUE: Multidetector volumetric imaging was performed of the abdomen and pelvis before and after the IV administration of 94 mL of Optiray 320. intravenous contrast. Sagittal and coronal reformatted images were obtained on the technologist's workstation. DLP: 517.54 mGy-cm FINDINGS: LUNG BASES: There is a focal area of probable scarring at the left lateral lung base, improved since the prior study. There is additional mild dependent atelectasis. LIVER, GALLBLADDER, AND BILIARY TREE: The liver is normal in size, shape, and attenuation. No focal hepatic lesion or biliary ductal dilatation is present. Multiple gallstones are again noted. PANCREAS: Unremarkable. SPLEEN: Unremarkable. ADRENAL GLANDS: Unremarkable. KIDNEYS AND URETERS: The kidneys are normal in size, shape, and attenuation. No hydronephrosis, hydroureter, or calculi seen. No perinephric stranding. BLADDER: Bladder wall thickening is again noted. GASTROINTESTINAL TRACT: Large amount of stool is again noted in the colon, most prominently in the rectum. There is no evidence of associated bowel obstruction. The small bowel is unremarkable. The appendix is not visualized. ABDOMINAL WALL/PERITONEAL CAVITY: No hernia is identified. There is no retroperitoneal hemorrhage. LYMPH NODES: Normal. VASCULAR: Unremarkable. PELVIC VISCERA: Unremarkable. OSSEOUS STRUCTURES: There is stable mild degenerative changes in the spine and both hips. IMPRESSION: 1. Improved mild scarring at the left lung base. 2. Stable cholelithiasis. 3. Stable large amount of stool in the colon. 4. No evidence of intraperitoneal or retroperitoneal hemorrhage. Assessment/Plan Assessment/Plan hematuria: requires workup Copies To: SANJEEV HAZEL MD Consult Acknowledgment - Thank you for your consult request. Attending MD Review Statement Attending Statement Attending MD Statement: examined this patient, discuss w/resident/PA/DISABILITY RATER Attending Assessment/Plan: pt needs cystoscopy: shceduled tentatively for 11/08/16-make NPO at midnight. send urine for cytology today.
--- NOTE | 2016-11-07 08:35 | NUR ---
HOUSE STAFF HERE TO EVALUATE. AWAKE, DENIES PAIN. SPEECH SLOW.
--- NOTE | 2016-11-07 11:08 | NUR ---
SWALLOW EVALUATION DONE BY SPEECH THERAPY.
--- NOTE | 2016-11-07 11:52 | NUR ---
PT BOUGHT TO ROOM # 18 AND EVALUATED BY HOUSE STAFF.
--- NOTE | 2016-11-07 12:14 | NUR ---
RECTAL TEMP 94.1. HOUSE STAFF NOTIFIED. WARMING BLANKET APPLIED DIRECTED. B/P 114/76. PT TURNED AND REPOSITIONED HEELS ELEVATED OFF OF BED FOR SKIN PROTECTION. FEET 4+ EDEMATOUS
--- NOTE | 2016-11-07 14:08 | Cons- Neurology ---
General Information and HPI Consulting Request Date of Consult: 11/07/16 Requested By: VEL TRAMMELL,KAVON Reason for Consult: altered mental status, hx MS Source of Information: EMR & dtr/POA Laxmi Vital Exam Limitations: unable to give history, not alert/orientated, confusion History of Present Illness: Per the patient's daughter and POA, Erin Vital, the patient has had MS since about age 18 and it has been labeled as the chronic progressive type. 2 her daughter's recollection, she has not seen a neurologist in many many years. She tried whatever meds were available in the beginning but without success. She may have seen Azael Adam MD at the MS clinic years ago but did not return for follow-up. She has an intrathecal baclofen pump which is currently managed by a physiatry assist in [place], Dr. Kendrick Napoles. Per the patient's daughter, Dr. Napoles is the only physician that the patient sees with any regularity. Her primary physician is Dr. Elizalde, but she visits him infrequently. She presents now with gradual onset confusion. She lives with her boyfriend, who apparently left her alone for about 24 hours to go out and do a plowing job for the [employer]. When he returned she was even more confused and lethargic. This prompted her ED admission. She presented with hypothermia elevated liver enzymes anemia and a when necessary of 24. She has been placed on a warming blanket. She currently is lethargic and has no specific complaints and is a very limited historian. Allergies/Medications Allergies: Coded Allergies: NO KNOWN ALLERGIES (03/13/14) Home Med List: Rivaroxaban (Xarelto) 20 MG TABLET 20 MG PO DAILY BLOOD THINNER (Reported) Current Medications: Current Medications Sig/Sydni Start time Last Medication Dose Route Stop Time Status Admin Acetaminophen 1,000 MG Q8P PRN 11/07 0445 AC N/A 1 UNIT IV Acetaminophen 650 MG Q6P PRN 11/07 0430 AC PO Bisacodyl 10 MG ONCE ONE 11/07 0330 DC 11/07 AK 11/07 0331 0517 Ceftriaxone Sodium 1,000 MG DAILY 11/07 1000 AC 11/07 IV 1140 Diclofenac Sodium 0 4 TIMES/DAY PRN 11/07 0330 CAN TOP Oxycodone HCl 5 MG Q6PRN PRN 11/07 0330 CAN PO Oxycodone/ 2 TAB Q6P PRN 11/07 0330 CAN Acetaminophen PO Sodium Chloride 1,000 ML Q6H 11/07 0745 CAN IV Sodium Chloride 1,000 ML Q10H 11/07 0330 AC 11/07 IV 1342 Tramadol HCl 50 MG Q8P PRN 11/07 0330 CAN PO Review of Systems Review of Systems: Complete systems review was unobtainable from the patient. As mentioned above, she is on a warming blanket for hypothermia. She is reportedly had hypothermia. She denied headache chest pain or cough. She is paraplegic and non-ambulatory at baseline. Past History Travel History Traveled to [place] past 21 day No Medical History Neurological: multiple sclerosis Psychiatric: depression Blood Disorders: DVT Surgical History Surgical History: unobtainable Psychosocial History Where Do You Live? Home Services at Home: None Primary Language: Spanish Smoking Status: Current Everyday Smoker ETOH Use: denies use (daughter believe she only drin), SAYS DRINKS EVERY DAY BUT IS CONFUSED Illicit Drug Use: denies illicit drug use Power of Bioinformatics Software Engineer/HCP? yes Name of POA/HCP: DAUGHTER Other Social History: Has a wheelchair van Daughter believes she only drinks occasionally Functional Ability ADLs Needs Assist: dressing, eating, toileting, bathing. Ambulation: WHEELCHAIR IADLs Needs Assist: shopping, housework, finances, food prep, telephone, transportation, medication admin. Exam & Diagnostic Data Vital Signs and I&O Vital Signs Date Time Temp Pulse Resp B/P Pulse O2 O2 Flow FiO2 Ox Delivery Rate 11/07 1205 94.1 84 18 114/76 97 Room Air 11/07 1145 80 18 96/53 96 Room Air 11/07 0815 96.8 84 20 132/74 99 Room Air 11/07 0642 97.7 81 18 125/60 96 11/07 0626 96.1 73 18 108/53 98 Room Air 11/07 0339 96.6 70 16 141/65 96 11/07 0252 97.2 86 18 128/60 95 Room Air 11/07 0106 97.0 75 16 121/58 96 11/07 0050 97.2 83 16 113/53 95 Room Air 11/06 2240 98.2 80 16 122/70 98 Room Air Room Air Intake & Output 11/07 1600 11/07 0800 03/15 0000 Intake Total 0 Output Total Balance 0 Intake, Oral 0 Physical Exam: Lethargic, arousable Head normocephalic and atraumatic Neck supple with no audible carotid or cranial bruits Heart regular rate and rhythm Chest clear anteriorly Abdomen soft Baclofen pump in place in the left mid abdomen region Extremities with 3+ pedal edema some erythema and scaling of skin Neurologic exam: Lethargic, arousable Oriented to person Disoriented to time Partially oriented to place. Knows she is it is at a hospital. States she is in [place] Able to name common objects No obvious disfluency of speech Able to follow basic commands Moderately inattentive with fluctuating level of consciousness requiring repeated stimulation to maintain wakefulness Cranial nerves: Confrontation visual field testing limited by lethargy. She does blink to visual threat in all 4 quadrants Not cooperative for full funduscopic exam. Pupils equal round and reactive to light. Extraocular movements full vertical upbeat nystagmus in primary gaze Facial movements symmetric. Tongue midline. Hearing grossly intact. Shoulder shrug symmetric. Motor: Flaccid paralysis both lower extremities Upper extremity strength 4 out of 5 with impaired rapid alternating movements in the right hand more so than the left Upper extremity movements ataxic Mild upper extremity asterixis Tendon reflexes diffusely hypoactive plantars silent Last 48 Hours of Lab Results: Laboratory Tests 11/07 11/07 0638 0400 Chemistry Sodium (137 - 145 mmol/L) 139 Potassium (3.5 - 5.1 mmol/L) 4.5 Chloride (98 - 107 mmol/L) 105 Carbon Dioxide (22 - 30 mmol/L) 27 Anion Gap (5 - 16) 7 BUN (7 - 17 mg/dL) 24 H Creatinine (0.5 - 1.0 mg/dL) 0.5 Estimated GFR (>60 ml/min) > 60 BUN/Creatinine Ratio (7 - 25 %) 48.0 H Calcium (8.4 - 10.2 mg/dL) 10.6 H Magnesium (1.6 - 2.3 mg/dL) 1.9 Total Bilirubin (0.2 - 1.3 mg/dL) 0.6 Direct Bilirubin (< 0.4 mg/dL) 0.4 AST (14 - 36 U/L) 54 H ALT (9 - 52 U/L) 66 H Alkaline Phosphatase (<127 U/L) 190 H Total Protein (6.3 - 8.2 g/dL) 6.0 L Albumin (3.5 - 5.0 g/dL) 3.1 L 25-OH Vitamin D Total (30 - 100 ng/ml) 43.7 PTH Intact (13.8 - 85 pg/ml) 75.8 Hematology CBC w Diff NO MAN DIFF REQ WBC (4.8 - 10.8 /CUMM) 7.7 RBC (4.20 - 5.40 /CUMM) 2.88 L Hgb (12.0 - 16.0 G/DL) 7.5 L Hct (37 - 47 %) 23.5 L MCV (81.0 - 99.0 FL) 81.5 MCH (27.0 - 31.0 PG) 26.1 L RDW (11.5 - 14.5 %) 24.8 H Plt Count (130 - 400 /CUMM) 119 L MPV (7.4 - 10.4 FL) 9.1 Gran % (42.2 - 75.2 %) 78.7 H Lymphocytes % (20.5 - 51.1 %) 13.9 L Monocytes % (1.7 - 9.3 %) 5.7 Eosinophils % (0 - 5 %) 1.4 Basophils % (0.0 - 2.0 %) 0.3 Absolute Granulocytes (1.4 - 6.5 /CUMM) 6.0 Absolute Lymphocytes (1.2 - 3.4 /CUMM) 1.1 L Absolute Monocytes (0.10 - 0.60 /CUMM) 0.4 Absolute Eosinophils (0.0 - 0.7 /CUMM) 0.1 Absolute Basophils (0.0 - 0.2 /CUMM) 0 PUBS MCHC (33.0 - 37.0 G/DL) 32.0 L Toxicology Urine Opiates Screen (>2000 NG/ML) < 100.00 Methadone Screen (>300 NG/ML) < 40 Barbiturate Screen (>200 NG/ML) < 60 Ur Phencyclidine Scrn (>25 NG/ML) < 6.00 Amphetamines Screen (>1000 NG/ML) < 100 U Benzodiazepines Scrn (>200 NG/ML) < 85 Urine Cocaine Screen (>300 NG/ML) < 50 Urine Cannabis Screen (>50 NG/ML) < 5.00 Urines Urine Color (YEL,AMB,STR) BLDY H Urine Clarity (CLEAR) TURBD H Urine pH (5.0 - 8.0) 6.5 Ur Specific [place] (1.001 - 1.035) 1.015 Urine Protein (NEG,<30 MG/DL) >=300 H Urine Ketones (NEG) TRACE H Urine Nitrite (NEG) POS H Urine Bilirubin (NEG) NEG Urine Urobilinogen (0.1 - 1.0 EU/dl) 2.0 H Ur Leukocyte Esterase (NEG) MOD H Ur Microscopic SEDIMENT EXAMINED Urine RBC (0 - 5 /HPF) PACKD H Urine Hemoglobin (NEG) LARGE H Urine Glucose (N MG/DL) NEG 11/07 11/06 0046 2251 Chemistry Sodium (137 - 145 mmol/L) 139 Potassium (3.5 - 5.1 mmol/L) 5.0 Chloride (98 - 107 mmol/L) 103 Carbon Dioxide (22 - 30 mmol/L) 31 H Anion Gap (5 - 16) 6 BUN (7 - 17 mg/dL) 26 H Creatinine (0.5 - 1.0 mg/dL) 0.6 Estimated GFR (>60 ml/min) > 60 BUN/Creatinine Ratio (7 - 25 %) 43.3 H Glucose (65 - 99 mg/dL) 70 Lactic Acid (0.7 - 2.1 mmol/L) 1.0 Calcium (8.4 - 10.2 mg/dL) 11.3 H Iron (37 - 170 ug/dL) 40 Ferritin (11.1 - 264 ng/mL) 13.6 Total Bilirubin (0.2 - 1.3 mg/dL) 0.5 GGT (12 - 43 U/L) 28 AST (14 - 36 U/L) 55 H ALT (9 - 52 U/L) 70 H Alkaline Phosphatase (<127 U/L) 221 H Ammonia (9 - 30 umol/L) < 9 L Creatine Kinase (30 - 135 U/L) 233 H Troponin I (< 0.11 ng/ml) < 0.01 Total Protein (6.3 - 8.2 g/dL) 6.6 Albumin (3.5 - 5.0 g/dL) 3.7 Globulin (1.9 - 4.2 gm/dL) 2.9 Albumin/Globulin Ratio (1.1 - 2.2 %) 1.3 Vitamin B12 (239 - 931 pg/mL) 844 Folate (2.76 - 20.0 ng/mL) 5.8 TSH &T3 &Free T4 Intrp (0.270 - 4.20 uIU/mL) 2.100 Hematology CBC w Diff NO MAN DIFF REQ WBC (4.8 - 10.8 /CUMM) 9.9 RBC (4.20 - 5.40 /CUMM) 2.60 L Hgb (12.0 - 16.0 G/DL) 6.9 *L Hct (37 - 47 %) 21.8 L MCV (81.0 - 99.0 FL) 83.6 MCH (27.0 - 31.0 PG) 26.3 L RDW (11.5 - 14.5 %) 28.3 H Plt Count (130 - 400 /CUMM) 146 MPV (7.4 - 10.4 FL) 8.8 Gran % (42.2 - 75.2 %) 79.3 H Lymphocytes % (20.5 - 51.1 %) 12.1 L Monocytes % (1.7 - 9.3 %) 6.7 Eosinophils % (0 - 5 %) 1.4 Basophils % (0.0 - 2.0 %) 0.5 Absolute Granulocytes (1.4 - 6.5 /CUMM) 7.9 H Absolute Lymphocytes (1.2 - 3.4 /CUMM) 1.2 Absolute Monocytes (0.10 - 0.60 /CUMM) 0.7 H Absolute Eosinophils (0.0 - 0.7 /CUMM) 0.1 Absolute Basophils (0.0 - 0.2 /CUMM) 0.1 PUBS MCHC (33.0 - 37.0 G/DL) 31.5 L Toxicology Serum Alcohol (<10 MG/DL) < 10.0 Imaging/Other Studies: PATIENT: FERNY VITAL PRESENT AGE: 56 PATIENT ACCOUNT NO: [id number] : 60 LOCATION: [facility] ORDERING PHYSICIAN: TEAGAN SILVER SERVICE DATE: 11/06/16 EXAM TYPE: CAT - CT HEAD WO IV CONTRAST EXAMINATION: CT HEAD WITHOUT CONTRAST CLINICAL INFORMATION: Confusion. On Xarelto. Rule out bleed. COMPARISON: MRI from 02/21/2009 TECHNIQUE: Contiguous axial imaging was performed from the skull base to vertex without intravenous contrast. DLP: 529 mGy-cm. FINDINGS: There is no evidence of acute intracranial hemorrhage or territorial infarction. No abnormal mass effect or midline shift is seen. Otto to white matter differentiation is well preserved. No extra-axial fluid collections are identified. No hydrocephalus. No significant volume loss. There is hypoattenuation seen in the white matter, particularly in the periventricular region. This is similar to the appearance on the prior MRI. The pattern raises suspicion for demyelinating disease. Small vessel ischemic changes are a consideration as well. The osseous structures and soft tissues are normal. The mastoid air cells and visualized portions of the paranasal sinuses are well aerated. IMPRESSION: No acute intracranial pathology. No acute hemorrhage. Diffuse white matter hypoattenuation, corresponding to area of T2 signal abnormality on prior MRI. Demyelinating disease is a consideration with this appearance. DICTATED BY: VINCENZO PARADA MD DATE/TIME DICTATED:11/07/1652 PURCHASE PRICE ANALYST:DIEGO DATE/TIME TRANSCRIBED:11/07/1652 CXR IMPRESSION: Smaller pleural effusion. Hazy basilar opacities may represent atelectasis or pneumonia. DICTATED BY: VINCENZO PARADA MD DATE/TIME DICTATED:11/07/16117 CT abd/pelvis IMPRESSION: 1. Improved mild scarring at the left lung base. 2. Stable cholelithiasis. 3. Stable large amount of stool in the colon. 4. No evidence of intraperitoneal or retroperitoneal hemorrhage. 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 She presented with a UTI, hypothermia and dehydration. There are also social concerns that she has inadequate supervision and care at home. She has an intrathecal baclofen pump but according to her daughter she is up-to- date with her refills (baclofen withdrawal can cause an acute confusional state as well as seizures) Recommendations: Continue medical management including hydration and treatment of UTI No need for MRI at this time (With regard to the baclofen pump is MRI compatible, and it typically turns off temporarily during an MRI and then automatically restarts but does need to be rechecked to confirm that it has restarted) EEG Anemia workup? Avoid EtOH Smoking cessation Social service consult regarding home situation She may benefit from ECF/STR after discharge but this will need to be discussed with her daughter/ROBERT Hair Her daughter indicated a desire to have her mother follow-up in our office for further intrathecal pump management. If so she should follow-up with me and I will need to obtain Dr. Napoles's records for the specifics regarding her pump dosing and refill dates etc. this would be in our [place] office and the number is [phone] Consult Acknowledgment - Thank you for your consult request.
--- NOTE | 2016-11-07 14:32 | NUR ---
PT TURNED AND RE-POSITIONED. HEELS ELEVATED OFF OF ISAIAS WITH PILLOW. STAGE 2 PARTIAL THICKNESS SKIN BREAKDOWN NOTED ON UPPER POSTERIOR RIGHT THIGH NEAR GLUTEAL AREA APPROX 2.5" X 2.5" FEET GROSSLY EDEMATOUS, TOP OF RIGHT FOOT SKIN BREAKDOWN WITH REDNESS AND OOZING NOTED.
--- NOTE | 2016-11-07 15:15 | PN- Att Addend ---
Attending Addendum Attending Brief Note Patient seen and examined ishan family at bedside, still having some sluggish response to questions. Currently denies any pain. Vital Signs Date Time Temp Pulse Resp B/P Pulse O2 O2 Flow FiO2 Ox Delivery Rate 11/07 1440 97 Room Air 11/07 1205 94.1 84 18 114/76 97 Room Air 11/07 1145 80 18 96/53 96 Room Air 11/07 0815 96.8 84 20 132/74 99 Room Air 11/07 0642 97.7 81 18 125/60 96 11/07 0626 96.1 73 18 108/53 98 Room Air 11/07 0339 96.6 70 16 141/65 96 11/07 0252 97.2 86 18 128/60 95 Room Air 11/07 0106 97.0 75 16 121/58 96 11/07 0050 97.2 83 16 113/53 95 Room Air 11/06 2240 98.2 80 16 122/70 98 Room Air Room Air on exam; awake, nad. cv; s1,s2, rrr resp; clear abd; soft, nt, bs+ + baclofen pump which she has for yrs. ext; + trace edema with dry scaling of the skin of lower extremities. Laboratory Tests 11/07 11/07 0638 0400 Chemistry Sodium (137 - 145 mmol/L) 139 Potassium (3.5 - 5.1 mmol/L) 4.5 Chloride (98 - 107 mmol/L) 105 Carbon Dioxide (22 - 30 mmol/L) 27 Anion Gap (5 - 16) 7 BUN (7 - 17 mg/dL) 24 H Creatinine (0.5 - 1.0 mg/dL) 0.5 Estimated GFR (>60 ml/min) > 60 BUN/Creatinine Ratio (7 - 25 %) 48.0 H Calcium (8.4 - 10.2 mg/dL) 10.6 H Magnesium (1.6 - 2.3 mg/dL) 1.9 Total Bilirubin (0.2 - 1.3 mg/dL) 0.6 Direct Bilirubin (< 0.4 mg/dL) 0.4 AST (14 - 36 U/L) 54 H ALT (9 - 52 U/L) 66 H Alkaline Phosphatase (<127 U/L) 190 H Total Protein (6.3 - 8.2 g/dL) 6.0 L Albumin (3.5 - 5.0 g/dL) 3.1 L 25-OH Vitamin D Total (30 - 100 ng/ml) 43.7 PTH Intact (13.8 - 85 pg/ml) 75.8 Hematology CBC w Diff NO MAN DIFF REQ WBC (4.8 - 10.8 /CUMM) 7.7 RBC (4.20 - 5.40 /CUMM) 2.88 L Hgb (12.0 - 16.0 G/DL) 7.5 L Hct (37 - 47 %) 23.5 L MCV (81.0 - 99.0 FL) 81.5 MCH (27.0 - 31.0 PG) 26.1 L RDW (11.5 - 14.5 %) 24.8 H Plt Count (130 - 400 /CUMM) 119 L MPV (7.4 - 10.4 FL) 9.1 Gran % (42.2 - 75.2 %) 78.7 H Lymphocytes % (20.5 - 51.1 %) 13.9 L Monocytes % (1.7 - 9.3 %) 5.7 Eosinophils % (0 - 5 %) 1.4 Basophils % (0.0 - 2.0 %) 0.3 Absolute Granulocytes (1.4 - 6.5 /CUMM) 6.0 Absolute Lymphocytes (1.2 - 3.4 /CUMM) 1.1 L Absolute Monocytes (0.10 - 0.60 /CUMM) 0.4 Absolute Eosinophils (0.0 - 0.7 /CUMM) 0.1 Absolute Basophils (0.0 - 0.2 /CUMM) 0 PUBS MCHC (33.0 - 37.0 G/DL) 32.0 L Toxicology Urine Opiates Screen (>2000 NG/ML) < 100.00 Methadone Screen (>300 NG/ML) < 40 Barbiturate Screen (>200 NG/ML) < 60 Ur Phencyclidine Scrn (>25 NG/ML) < 6.00 Amphetamines Screen (>1000 NG/ML) < 100 U Benzodiazepines Scrn (>200 NG/ML) < 85 Urine Cocaine Screen (>300 NG/ML) < 50 Urine Cannabis Screen (>50 NG/ML) < 5.00 Urines Urine Color (YEL,AMB,STR) BLDY H Urine Clarity (CLEAR) TURBD H Urine pH (5.0 - 8.0) 6.5 Ur Specific [place] (1.001 - 1.035) 1.015 Urine Protein (NEG,<30 MG/DL) >=300 H Urine Ketones (NEG) TRACE H Urine Nitrite (NEG) POS H Urine Bilirubin (NEG) NEG Urine Urobilinogen (0.1 - 1.0 EU/dl) 2.0 H Ur Leukocyte Esterase (NEG) MOD H Ur Microscopic SEDIMENT EXAMINED Urine RBC (0 - 5 /HPF) PACKD H Urine Hemoglobin (NEG) LARGE H Urine Glucose (N MG/DL) NEG 11/07 11/06 0046 2251 Chemistry Sodium (137 - 145 mmol/L) 139 Potassium (3.5 - 5.1 mmol/L) 5.0 Chloride (98 - 107 mmol/L) 103 Carbon Dioxide (22 - 30 mmol/L) 31 H Anion Gap (5 - 16) 6 BUN (7 - 17 mg/dL) 26 H Creatinine (0.5 - 1.0 mg/dL) 0.6 Estimated GFR (>60 ml/min) > 60 BUN/Creatinine Ratio (7 - 25 %) 43.3 H Glucose (65 - 99 mg/dL) 70 Lactic Acid (0.7 - 2.1 mmol/L) 1.0 Calcium (8.4 - 10.2 mg/dL) 11.3 H Iron (37 - 170 ug/dL) 40 Ferritin (11.1 - 264 ng/mL) 13.6 Total Bilirubin (0.2 - 1.3 mg/dL) 0.5 GGT (12 - 43 U/L) 28 AST (14 - 36 U/L) 55 H ALT (9 - 52 U/L) 70 H Alkaline Phosphatase (<127 U/L) 221 H Ammonia (9 - 30 umol/L) < 9 L Creatine Kinase (30 - 135 U/L) 233 H Troponin I (< 0.11 ng/ml) < 0.01 Total Protein (6.3 - 8.2 g/dL) 6.6 Albumin (3.5 - 5.0 g/dL) 3.7 Globulin (1.9 - 4.2 gm/dL) 2.9 Albumin/Globulin Ratio (1.1 - 2.2 %) 1.3 Vitamin B12 (239 - 931 pg/mL) 844 Folate (2.76 - 20.0 ng/mL) 5.8 TSH &T3 &Free T4 Intrp (0.270 - 4.20 uIU/mL) 2.100 Hematology CBC w Diff NO MAN DIFF REQ WBC (4.8 - 10.8 /CUMM) 9.9 RBC (4.20 - 5.40 /CUMM) 2.60 L Hgb (12.0 - 16.0 G/DL) 6.9 *L Hct (37 - 47 %) 21.8 L MCV (81.0 - 99.0 FL) 83.6 MCH (27.0 - 31.0 PG) 26.3 L RDW (11.5 - 14.5 %) 28.3 H Plt Count (130 - 400 /CUMM) 146 MPV (7.4 - 10.4 FL) 8.8 Gran % (42.2 - 75.2 %) 79.3 H Lymphocytes % (20.5 - 51.1 %) 12.1 L Monocytes % (1.7 - 9.3 %) 6.7 Eosinophils % (0 - 5 %) 1.4 Basophils % (0.0 - 2.0 %) 0.5 Absolute Granulocytes (1.4 - 6.5 /CUMM) 7.9 H Absolute Lymphocytes (1.2 - 3.4 /CUMM) 1.2 Absolute Monocytes (0.10 - 0.60 /CUMM) 0.7 H Absolute Eosinophils (0.0 - 0.7 /CUMM) 0.1 Absolute Basophils (0.0 - 0.2 /CUMM) 0.1 PUBS MCHC (33.0 - 37.0 G/DL) 31.5 L Toxicology Serum Alcohol (<10 MG/DL) < 10.0 A/P; 56-year-old female with history significant for multiple sclerosis, not on any particular treatment except for baclofen for muscle spasms, history of DVT on Xarelto who is admitted with mild confusion, acute blood loss anemia, grossly hematuria hypercalcemia a as well as possible UTI. Patient has been started on antibiotics. Blood and urine cultures will be followed. Urology has been consulted and they plan to do cystoscopy tomorrow. Patient's Xarelto has been held. She has received a unit of transfusion and her H&H has improved somewhat. Will monitor her H&H and continue to hold Xarelto for now. Neurology consult be obtained. Patient's family claims that she has baclofen pump far number of fears. Question if there is any chance of overdose. She does have pinpoint pupils. Please contact her pain management doctor to discuss any chance of overdosing. Her CT of the head was negative for any acute intracranial process. Will discuss with neurology if she needs an MRI. The baclofen pump is compatible according to her pain management doctor but it needs to be shut off if she is going for an MRI. Will follow up on PTH and vitamin D levels. DVT px; ALPS. Discussed with patient's daughter and mother at bedside at length.
[2016-11-07 16:00] VITALS: BP 123/68
--- NOTE | 2016-11-07 16:45 | NUR ---
PT TURNED AND RE-POSITIONED. DINNER TRAY ORDERED. PT ATE LESS THAN 25% OF LUNCH AND DINNER TRAY.
--- NOTE | 2016-11-07 17:51 | NUR ---
PT GOING TO ROOM 235-1.
[2016-11-07 19:17] VITALS: BP 100/54
--- NOTE | 2016-11-07 19:45 | NUR ---
PT NOTED TO BE STUPEROUS. HR FLUCUATING BETWEEN 104-130. RECTAL TEMP 100.0. WARMING BLANKET D/C'D. BLOOD SUGAR VIA F.S 61. MOD CALLED AND NOTIFIED. PT MEDICATED WITH 1/2 AMP D50 IVP.
--- NOTE | 2016-11-07 21:50 | NUR ---
PT CHANGED TO ICU PER HOUSE STAFF. ADM REQ UPDATED.
--- NOTE | 2016-11-07 22:45 | NUR ---
HOUSE STAFF IN TO RE-EVALUATE PT PT MOVED TO HOSPITAL BED, TURNED AND REPOSITIONED 20 G MIKEY PLACED IN RH BLOOD DRAWN DIRECTED AND SENT TO LAB
[2016-11-07 23:00] VITALS: BP 104/59
[2016-11-07 23:14] LABS: ABSOLUTE BASOPHIL COUNT 0.1 /CUMM (0.0-0.2); ABSOLUTE EOSINOPHIL COUNT 0.1 /CUMM (0.0-0.7); ABSOLUTE GRANULOCYTE CT 6.8 /CUMM (1.4-6.5); ABSOLUTE LYMPH COUNT 1.3 /CUMM (1.2-3.4); ABSOLUTE MONOCYTE COUNT 0.7 /CUMM (0.10-0.60); EOSINOPHIL % 0.8 % (0-5); GRANULOCYTE % 75.7 % (42.2-75.2); HEMATOCRIT 21.9 % (37-47); MEAN CORPUSCULAR VOLUME 81.2 FL (81.0-99.0); MEAN PLATELET VOLUME 9.7 FL (7.4-10.4); PLATELET COUNT 132 /CUMM (130-400); RBC DISTRIBUTION WIDTH 25.6 % (11.5-14.5); RED BLOOD CELL CT 2.69 /CUMM (4.20-5.40)
--- NOTE | 2016-11-07 23:30 | NUR ---
CRITICAL TEST RESULTS [id number] FERNY KURTZ 56 F TESTS AND RESULTS: HGB 7.0 Results received and read back by: DIEGO SNYDER Results received date and time: 11/07/16 2330 The following provider was notified of the results, and read the results back: HOUSE STAFF Notified date and time: 11/07/16 at 2330
--- NOTE | 2016-11-07 23:30 | NUR ---
THIS RN ASSUMED CARE OF PER RN MANUEL. PT AROUSABLE TO VERBAL STIMULI AND ANSWERED QUESTIONS APPROPRIATELY TO THIS RN. NS LITER INFUSING INTO IV SITE ON RIGHT HAND @150ML/HR.
--- NOTE | 2016-11-07 23:35 | NUR ---
PTS DAUGHTER CANNOT BE REACHED BY CELL. MUST CALL SCHOOL NUMBER [phone] WORK PHONE NUMBER
--- NOTE | 2016-11-07 23:40 | NUR ---
PT TRANSFERRED TO ROOM # 10 AND ENDORSED TO JEN TY
--- NOTE | 2016-11-07 23:41 | NUR ---
CHET - ROBERT MURRIETA CELL - [phone] [facility] - [phone]
--- NOTE | 2016-11-08 00:36 | NUR ---
PT IS EASILY AROUSABLE BUT LETHARGIC. PT KNOWS HER NAME, NOT PLACE AND TIME. PT UNABLE TO FOLLOW COMMANDS FOR NIH SCALE BECAUSE OF LETHARGIC BEHAVIOR AND SLEEPINESS.
--- NOTE | 2016-11-08 00:45 | NUR ---
THIS RN PAGED AND SPOKE WITH WIND TURBINE SHEET METAL WORKER ALVIN WHO STATED THAT SHE IS AWARE OF PTS AMS CHANGE AND THIS RN STATED THAT PT IS UNABLE TO LIFT ARMS OR RESPOND TO QUESTIONS DUE TO LETHARGY. THIS RN INFORMED WIND TURBINE SHEET METAL WORKER THAT THE SECOND UNIT OF BLOOD WILL BE HUNG ORDERED.
--- NOTE | 2016-11-08 01:00 | NUR ---
BLOOD HUNG AND VERFIED BY MELONY King. PRBC INFUSING AT 100 ML/HR.
--- NOTE | 2016-11-08 01:26 | NUR ---
VSS, THIS RN STAYED AT BEDSIDE FOR FIRST 15 MINS OF PRBC INFUSION, PT HAS NO CHANGE IN AMS OR COMPLAINTS. BS CHECKED BY THIS RN 81.
--- NOTE | 2016-11-08 01:32 | NUR ---
PT BED ASSIGNMENT 104
--- NOTE | 2016-11-08 01:45 | NUR ---
THIS RN CALLED TO GIVE REPORT AND MELONY DIAZ SAID SHE NEEDED TO ACCEPT THE PT IN 1 HR.
--- NOTE | 2016-11-08 03:53 | NUR ---
THIS RN CALLED AND GAVE REPORT TO MELONY DIAZ.
[2016-11-08 04:10] VITALS: BP 109/53
[2016-11-08 06:31] LABS: ABSOLUTE BASOPHIL COUNT 0.1 /CUMM (0.0-0.2); ABSOLUTE EOSINOPHIL COUNT 0.1 /CUMM (0.0-0.7); ABSOLUTE GRANULOCYTE CT 7.9 /CUMM (1.4-6.5); ABSOLUTE LYMPH COUNT 1.4 /CUMM (1.2-3.4); ABSOLUTE MONOCYTE COUNT 0.7 /CUMM (0.10-0.60); BASOPHIL % 0.6 % (0.0-2.0); EOSINOPHIL % 0.5 % (0-5); GRANULOCYTE % 77.8 % (42.2-75.2); HEMATOCRIT 25.3 % (37-47); MEAN CORPUSCULAR HGB 26.7 PG (27.0-31.0); MEAN CORPUSCULAR HGB CONC 32.2 G/DL (33.0-37.0); MEAN CORPUSCULAR VOLUME 82.9 FL (81.0-99.0); MEAN PLATELET VOLUME 9.5 FL (7.4-10.4); PLATELET COUNT 124 /CUMM (130-400); RBC DISTRIBUTION WIDTH 23.8 % (11.5-14.5); RED BLOOD CELL CT 3.05 /CUMM (4.20-5.40); WHITE BLOOD CELL COUNT 10.2 /CUMM (4.8-10.8)
--- NOTE | 2016-11-08 07:00 | NUR ---
REC'D REPORT FROM MELONY LI. DX: CHANGE MS & ANEMIA. CAME TO ER W/H&H 6./21.8 REC'D 1U PC 11/06 IN THE ER & 11/07 POST H&H 7.5/23.5. PT WAS GM HOLD IN THE ER SINCE 11/06 BUT CHANGED TO ICU 11/07 @2148 D/T CHANGE IN MENTAL STATUS & NEED MORE NEURO CHECKS & FREQ NIH Q1HR. 0410 PT ARRIVED IN THE ICU TO ROOM 104. TRANSFERRED PT SAFELY ONTO THE BED W/4 STAFF & USING THE SLIDING BOARD. TOLERATED WELL. PT SL DROWSEY BUT AWAKE TO TRANSFER & TALKING SLOWLY ANSWER SHORT ANSWERS WHEN ?. ALERT/ORIENTED X2 TO NAME & PLACE. FOLLOWS COMMANDS TO BUE BUT WEAK & MOVES THEM SPONT. BLE NO MOVT AT ALL EVEN W/TACTILE STIMULI. H/O MS W/BACLOFEN PUMP TO LLQ. ON A TOTAL CARE BED D/T SKIN ISSUES TO L GLUTEAL FOLD OLD HEALED ULCER, BLE SWOLLEN 3-4 PITTING EDEMA. SKIN TEAR TO TOP OF THE L FOOT X2, 1) 2X2 2) KIDNEY SHAPED 2.5X 1.5 X1CM X1.5. VERY DRY/SCALY GENO SHINS. ON THE ORACLE TECHNICAL DEVELOPER SR RHYTHM W/HR 70-80'S, SBP AUTO 109/53 & MANUAL 122/50. ON 3LNC POX 95%, LS DIMINISHED THROUGHOUT THE LOBES. FC INSITU & DRAINING DARK BEHZAD W/SEDIMENTS & CLOUDY. PLANS FOR CYSTO W/DR. HAZEL. PT WAS RECEIVING 2U PRBC & COMPLETED @0423 W/NO TRANSFUSION REACTION. [address] BAILEY & DR. HODGES RE. PT'S STATUS. PT MORE AWAKE/ ALERT/ORIENTED X2 & FOLLOWS SIMPLE COMMANDS & ANSWERS APPROPRIATELY. MDS CHANGED TO SERVICE TO GEN MED HOLD. 4951 REPORT GIVEN TO MELONY LEIGH.
--- NOTE | 2016-11-08 07:30 | PN- Housestaff ---
ENEIDA TRAMMELL,[facility] 11/08/16 0729: Subjective Follow-up For: Mental status Hematuria Anemia History of MS History of DVT Subjective: Patient seen and examined this morning. She was lying in her bed in no acute distress. Was alert but oriented 1, vitals within normal limits, she is nothing by mouth currently for cystoscopy today, no episodes of hematuria, she status post blood transfusion, H&H stable, no other complaints. Review of Systems Constitutional: Reports: see HPI. Objective Last 24 Hrs of Vital Signs/I&O Vital Signs Date Time Temp Pulse Resp B/P Pulse O2 O2 Flow FiO2 Ox Delivery Rate 11/08 0410 95 Nasal 3.0L Cannula 11/08 0410 98.8 77 17 109/53 95 Nasal 3.0L Cannula 11/08 0348 98.5 77 18 117/59 97 Nasal 4.0L Cannula 11/08 0256 98.4 100 20 113/57 97 Room Air 11/08 0121 98.5 97 20 99/55 96 Nasal 3.0L Cannula 11/08 0115 98.8 108 20 99/55 98 Nasal 3.0L Cannula 11/08 0000 98.1 87 18 112/53 98 Nasal 4.0L Cannula 11/07 2300 99.7 104 18 104/59 95 Nasal 2.0L Cannula 11/07 2228 99.7 104 18 104/596 95 Nasal 2.0L Cannula 11/07 2200 99.7 11/07 2151 100.6 108 18 99/50 93 Nasal 2.0L Cannula 11/07 2120 98/52 11/07 2037 100.0 11/07 1917 100.2 124 20 100/54 94 Nasal 2.0L Cannula 11/07 1915 100.0 128 20 100/54 95 Nasal 2.0L Cannula 11/07 1600 96.8 96 18 123/68 96 Room Air 11/07 1518 96.7 98 18 123/60 96 Room Air 11/07 1440 97 Room Air 11/07 1205 94.1 84 18 114/76 97 Room Air 11/07 1145 80 18 96/53 96 Room Air Intake & Output 11/08 1600 11/08 0800 11/08 0000 Intake Total 709 1200 Output Total 275 325 Balance 434 875 Intake, Blood 350 Product Intake, IV 359 1200 Intake, Oral 0 Number 0 Bowel Movements Output, Urine 275 325 Physical Exam General Appearance: Alert, No Acute Distress Cardiovascular: Regular Rate, Normal S1, Normal S2 Lungs: Clear to Auscultation, Normal Air Movement Abdomen: Normal Bowel Sounds, Soft, No Tenderness Extremities: No Clubbing, No Cyanosis, No Edema Current Medications: Current Medications Sig/Sydni Start time Last Medication Dose Route Stop Time Status Admin Acetaminophen 0 .STK-MED ONE 11/07 2033 DC IV Acetaminophen 1,000 MG Q8P PRN 11/07 444 AC 11/07 N/A 1 UNIT IV 2036 Acetaminophen 650 MG Q6P PRN 11/07 043 AC PO Ceftriaxone Sodium 1,000 MG DAILY 11/07 1000 AC 11/07 IV 1140 Dextrose 12.5 GM ONCE ONE 11/07 1944 DC 11/07 IV 11/07 1945 195 Dextrose/Sodium 1,000 ML Q13H 11/08 0000 AC 11/08 Chloride IV 11/08 1259 0447 Sodium Chloride 1,000 ML Q10H 11/07 0330 DC 11/08 IV 0002 Last 24 Hrs of Lab/Josh Results Last 24 Hrs of Labs/Mics: Laboratory Tests 11/08/16 0600: Anion Gap 5, Estimated GFR > 60, Glucose 80, Calcium 10.1, Phosphorus 2.6, Magnesium 1.7, Total Bilirubin 1.0, AST 42 H, ALT 51, Troponin I 0.08, Albumin 2.7 L, CBC w Diff NO MAN DIFF REQ, RBC 3.05 L, MCV 82.9, MCH 26.7 L, RDW 23.8 H, MPV 9.5, Gran % 77.8 H, Lymphocytes % 13.8 L, Monocytes % 7.3, Eosinophils % 0.5, Basophils % 0.6, Absolute Granulocytes 7.9 H, Absolute Lymphocytes 1.4, Absolute Monocytes 0.7 H, Absolute Eosinophils 0.1, Absolute Basophils 0.1, PUBS MCHC 32.2 L 11/07/16 2252: Lactic Acid 0.6 L, Calcium 9.6, Cortisol PM Sample 20.3 H, CBC w Diff NO MAN DIFF REQ, RBC 2.69 L, MCV 81.2, MCH 26.0 L, RDW 25.6 H, MPV 9.7, Gran % 75.7 H, Lymphocytes % 14.9 L, Monocytes % 7.6, Eosinophils % 0.8, Basophils % 1.0, Absolute Granulocytes 6.8 H, Absolute Lymphocytes 1.3, Absolute Monocytes 0.7 H, Absolute Eosinophils 0.1, Absolute Basophils 0.1, PUBS MCHC 32.0 L 11/07/16 2240: pH 7.43, pCO2 38, pO2 91, HCO3 24, ABG O2 Sat (Measured) 95.0 L, P-50 (Temp Corrected) N, Carboxyhemoglobin 1.0 L, O2 Concentration % 2L, Temperature 99.7, O2 Delivery Method NC, Phlebotomy Draw Site RIGHT RADIAL 11/07/162110: Troponin I 0.02 11/07/162051: Troponin I Cancelled Microbiology 11/08 414 UPPER RESP: Surveillance Culture - RECD 11/08 414 GI: Surveillance Culture - RECD 11/08 2307 URINE ROUT: Urine Culture - RES Assessment/Plan Assessment: This is a 56-year-old female with past medical history of MS not on treatment, DVT on Xarelto, who presents with chief complaint difficulty AMS. In ED patient was found to have anemia, hematuria, and elevated calcium. Differential diagnosis for AMS in this patient includes hypercalcemia, acute anemia, acute delirium, dehydration, worsening/ new lesion of MS, stroke, TIA. We will admit patient to general medicine for further workup and management. Vitals upon presentation: 97.0, 75, 16, 121/58, 96. CBC showed white count 9.9, hemoglobin 6.9, hematocrit 21.8, platelet 146. BEP showed sodium 139, potassium 5.0, chloride 103, bicarbonate 31, BUN 26, creatinine 0.6. Glucose 70. AST 55, ALT 70, alkaline phosphatase 221, calcium 11.3, CK 233. Negative lactic acid, negative troponin 1, normal TSH and T4. Negative ammonia. CT ABD/PELVIS IMPRESSION: 1. Improved mild scarring at the left lung base. 2. Stable cholelithiasis. 3. Stable large amount of stool in the colon. 4. No evidence of intraperitoneal or retroperitoneal hemorrhage. CXR IMPRESSION: Smaller pleural effusion. Hazy basilar opacities may represent atelectasis or pneumonia. HEAD CT IMPRESSION: No acute intracranial pathology. No acute hemorrhage. Diffuse white matter hypoattenuation, corresponding to area of T2 signal abnormality on prior MRI. Demyelinating disease is a consideration with this appearance. Patient was transferred to ICU today and monitor for the following conditions: Altered mental status: Likely secondary to several etiologies hypercalcemia, anemia, TIA, stroke, delirium, worsening of MS, or unknown ingestion. Head CT did not show evidence of stroke Additionally, no new demyelinating lesions were noted in the CT however MRI does have better resolution. folate and B12 normal, urine tox normal. Acute blood loss anemia insetting of Hematuria: Is post 2 units of blood transfusion, hemoglobin and hematocrit 7 and 21.9-8.1 and 25.3 today. Upon presentation patient was reported to have hematuria, UA showed evidence of being leukoesterase positive and nitrate positive, and proteinuria of greater than 300, patient started on ceftriaxone, also CT abdomen was done which had above findings. Patient was scheduled for cystoscopy today for further evaluation of etiology on hematuria but secondary to her fluctuating mental status she was deemed unsafe for anesthesia administration. Procedure reviewed and once patient is more stable as an outpatient as per urology recommendations. History of multiple sclerosis : Patient has extensive history of multiple sclerosis, s/p implanted pain pump baclofen which was placed by a Dr. Napoles in [place]. Neurology has recommended EEG, no MRI at this point. But if needed baclofen pump is MRI compatible as per chart. Hypercalcemia : Levels upon presentation 11.3>>9.6, vit d,PTH and Mg was normal . Continue to hydrate the patient and monitor calcium level. History of DVT started on Xarelto: Xarelto on hold insetting of hematuria and anemia. DVT prophylaxis with Alps Diet: heart healthy Patient is full code Problem List: 1. Hematuria 2. Anemia 3. Altered mental status Pain Ratin Pain Location: None Pain Goal: Remain pain free Pain Plan: Acetaminophen Tomorrow's Labs & Rationales: CBC for H&H monitoring BEP for lites monitoring DVT/Prophylaxis: mechanical VEL TRAMMELL,KAVON 11/08/16 1525: Attending MD Review Statement Attending Statement Attending MD Statement: examined this patient, discuss w/resident/PA/STONE DRILLER HELPER, agreed w/resident/PA/STONE DRILLER HELPER, discussed with family, reviewed EMR data (avail), discussed with nursing, discussed with case mgmt, reviewed images, amended to note Attending Assessment/Plan: Patient seen and examined, feeling overall better. She is much more awake today. She denies any aches or pains. Her blood pressure and temperature have improved. On exam; aox3, nad. cv; s1,s2, rrr resp; clear abd; soft, nt, bs+ ext; 2+ edema Laboratory Tests 11/08 11/07 0600 2252 Chemistry Sodium (137 - 145 mmol/L) 138 Potassium (3.5 - 5.1 mmol/L) 3.8 Chloride (98 - 107 mmol/L) 107 Carbon Dioxide (22 - 30 mmol/L) 27 Anion Gap (5 - 16) 5 BUN (7 - 17 mg/dL) 16 Creatinine (0.5 - 1.0 mg/dL) 0.6 Estimated GFR (>60 ml/min) > 60 Glucose (65 - 99 mg/dL) 80 Lactic Acid (0.7 - 2.1 mmol/L) 0.6 L Calcium (8.4 - 10.2 mg/dL) 10.1 9.6 Phosphorus (2.5 - 4.5 mg/dL) 2.6 Magnesium (1.6 - 2.3 mg/dL) 1.7 Total Bilirubin (0.2 - 1.3 mg/dL) 1.0 AST (14 - 36 U/L) 42 H ALT (9 - 52 U/L) 51 Troponin I (< 0.11 ng/ml) 0.08 Albumin (3.5 - 5.0 g/dL) 2.7 L Cortisol PM Sample (1.7 - 14.1) 20.3 H Hematology CBC w Diff NO MAN DIFF REQ NO MAN DIFF REQ WBC (4.8 - 10.8 /CUMM) 10.2 9.0 RBC (4.20 - 5.40 /CUMM) 3.05 L 2.69 L Hgb (12.0 - 16.0 G/DL) 8.1 L 7.0 *L Hct (37 - 47 %) 25.3 L 21.9 L MCV (81.0 - 99.0 FL) 82.9 81.2 MCH (27.0 - 31.0 PG) 26.7 L 26.0 L RDW (11.5 - 14.5 %) 23.8 H 25.6 H Plt Count (130 - 400 /CUMM) 124 L 132 MPV (7.4 - 10.4 FL) 9.5 9.7 Gran % (42.2 - 75.2 %) 77.8 H 75.7 H Lymphocytes % (20.5 - 51.1 %) 13.8 L 14.9 L Monocytes % (1.7 - 9.3 %) 7.3 7.6 Eosinophils % (0 - 5 %) 0.5 0.8 Basophils % (0.0 - 2.0 %) 0.6 1.0 Absolute Granulocytes (1.4 - 6.5 /CUMM) 7.9 H 6.8 H Absolute Lymphocytes (1.2 - 3.4 /CUMM) 1.4 1.3 Absolute Monocytes (0.10 - 0.60 /CUMM) 0.7 H 0.7 H Absolute Eosinophils (0.0 - 0.7 /CUMM) 0.1 0.1 Absolute Basophils (0.0 - 0.2 /CUMM) 0.1 0.1 PUBS MCHC (33.0 - 37.0 G/DL) 32.2 L 32.0 L 11/07 11/07 11/07 2240 [id number] Blood Gas pH (7.35 - 7.45 PH) 7.43 pCO2 (35 - 45 TORR) 38 pO2 (80 - 100 TORR) 91 HCO3 (21 - 28 MEQ/L) 24 ABG O2 Sat (Measured) (>96.0 %) 95.0 L P-50 (Temp Corrected) N Carboxyhemoglobin (1.5 - 5.0 %) 1.0 L O2 Concentration % 2L Temperature (97.0 - 100.0 FARH) 99.7 O2 Delivery Method NC Chemistry Troponin I (< 0.11 ng/ml) 0.02 Cancelled Miscellaneous Phlebotomy Draw Site RIGHT RADIAL A/P: 56-year-old female with history significant for multiple sclerosis, not on any particular treatment except for baclofen for muscle spasms, history of DVT on Xarelto who is admitted with mild confusion, acute blood loss anemia, grossly hematuria hypercalcemia a as well as possible UTI. Patient seen by neurology as well as urology. No plan for cystoscopy yet. We' ll continue to treat her possible UTI. Follow-up on cultures. Mental status has improved. Calcium level also improved but still slightly high. It is considered as mild hypercalcemia and patient is asymptomatic. Will continue IV hydration 1 more bag and recheck the levels in the morning. Please check her CBC as well as BEP in the morning as well as calcium levels. DVT px; ALPS. Will d/w CM about the dispo plan.
[2016-11-08 08:00] VITALS: BP 115/50
--- NOTE | 2016-11-08 10:24 | NUR ---
PHYSICAL THERAPY. Pt'S DGT PRESENT AND ABLE TO PROVIDE INFORMATION REGARDING Pt'S MOBILITY AT BASELINE. Pt'S DGT REPORTS THAT Pt'S SIGNIFICANT OTHER HAS BEEN TOTAL ASSIST PIVOTING Pt FROM BED<>W/C FOR SEVERAL YEARS AND THAT THE TRANSFER IS BECOMING INCREASINGLY DIFFICULT AND UNSAFE. Pt'S DGT REQUESTS A DAVID LIFT FOR HOME TO ASSIST WITH SAFE TRANSFERS. Pt IS IN AGREEMENT. PLAN IS CURRENTLY FOR D/C TO HOME W/ A DAVID LIFT. NO FURTHER SKILLED PT INDICATED AT THIS TIME. -EMILY CARRANZA, WILFRIDOT
--- NOTE | 2016-11-08 13:37 | PN- Urology ---
Surgical Brief Attending Note Brief Attending Note: pT OVERALL IMPROVING WITH INTERMITTENT LUCIDITY. NO COMPLAINTS. VSS AFEBRILE- REQUIRED 2 PRBC. GIVEN MS FLUCTUATION AND OVERALL STABLE, WILL DELAY CYSTOSCOPY -POSSIBLE TURBT UNTIL MENTALLY AT BASELINE. DISCUSSED RISKS WITH PT. AND HER DAUGHTER WHO AGREE TO F/U FOR CYTO. ON OUTPATIENT BASIS.
[2016-11-08 14:20] VITALS: BP 120/80
--- NOTE | 2016-11-08 19:55 | PN- Neurology ---
Subjective Subjective: PATIENT MORE ALERT PER DAUGHTER, LOSS OF HAND FUNCTION MENTAL STATE STILL NOT BACK TO BASELINE Review of Systems: NO HEADACHE OR VOMITTING Review of Systems Constitutional: Denies: fever. Objective Vital Signs and I&Os Vital Signs Date Time Temp Pulse Resp B/P Pulse O2 O2 Flow FiO2 Ox Delivery Rate 11/08 1600 Nasal 2.0L Cannula 11/08 1420 98.0 82 20 120/80 92 11/08 1200 95 Nasal 2.0L Cannula 11/08 0800 97.6 91 14 115/50 96 Nasal 2.0L Cannula 11/08 0410 95 Nasal 3.0L Cannula 11/08 0410 98.8 77 17 109/53 95 Nasal 3.0L Cannula 11/08 0348 98.5 77 18 117/59 97 Nasal 4.0L Cannula 11/08 0256 98.4 100 20 113/57 97 Room Air 11/08 0121 98.5 97 20 99/55 96 Nasal 3.0L Cannula 11/08 0115 98.8 108 20 99/55 98 Nasal 3.0L Cannula 11/08 0000 98.1 87 18 112/53 98 Nasal 4.0L Cannula 11/07 2300 99.7 104 18 104/59 95 Nasal 2.0L Cannula 11/07 2228 99.7 104 18 104/596 95 Nasal 2.0L Cannula 11/07 2200 99.7 11/07 2151 100.6 108 18 99/50 93 Nasal 2.0L Cannula 11/07 2120 98/52 11/07 2036 100.0 Intake & Output 11/08 1600 11/08 0800 11/08 0000 11/07 1600 11/07 0800 11/07 0000 Intake Total 0 709 1200 1200 0 Output Total 275 325 350 Balance 0 434 875 850 0 Intake, Blood 350 Product Intake, IV 359 1200 1200 Intake, Oral 0 0 0 Number 0 0 Bowel Movements Output, Urine 275 325 350 Patient 180 lb Weight Physical Exam: AWAKE DYSARTHRIC RIGIDITY OF ARMS UNABLE TO OPEN HANDS NO ATAXIA EOM FULL Current Medications: Current Medications Sig/Sydni Start time Last Medication Dose Route Stop Time Status Admin Acetaminophen 0 .STK-MED ONE 11/07 2033 DC IV Acetaminophen 1,000 MG Q8P PRN 11/07 444 AC 11/07 N/A 1 UNIT IV 2036 Acetaminophen 650 MG Q6P PRN 11/07 0430 AC PO Ceftriaxone Sodium 1,000 MG DAILY 11/07 1000 AC 11/08 IV 1708 Dextrose/Sodium 1,000 ML Q13H 11/08 0000 DC 11/08 Chloride IV 11/08 1259 0447 Sodium Chloride 1,000 ML Q10H 11/07 0330 DC 11/08 IV 0002 Results Last 24 Hours of Lab Results: Laboratory Tests 11/08 11/07 0600 2252 Chemistry Sodium (137 - 145 mmol/L) 138 Potassium (3.5 - 5.1 mmol/L) 3.8 Chloride (98 - 107 mmol/L) 107 Carbon Dioxide (22 - 30 mmol/L) 27 Anion Gap (5 - 16) 5 BUN (7 - 17 mg/dL) 16 Creatinine (0.5 - 1.0 mg/dL) 0.6 Estimated GFR (>60 ml/min) > 60 Glucose (65 - 99 mg/dL) 80 Lactic Acid (0.7 - 2.1 mmol/L) 0.6 L Calcium (8.4 - 10.2 mg/dL) 10.1 9.6 Phosphorus (2.5 - 4.5 mg/dL) 2.6 Magnesium (1.6 - 2.3 mg/dL) 1.7 Total Bilirubin (0.2 - 1.3 mg/dL) 1.0 AST (14 - 36 U/L) 42 H ALT (9 - 52 U/L) 51 Troponin I (< 0.11 ng/ml) 0.08 Albumin (3.5 - 5.0 g/dL) 2.7 L Cortisol PM Sample (1.7 - 14.1) 20.3 H Hematology CBC w Diff NO MAN DIFF REQ NO MAN DIFF REQ WBC (4.8 - 10.8 /CUMM) 10.2 9.0 RBC (4.20 - 5.40 /CUMM) 3.05 L 2.69 L Hgb (12.0 - 16.0 G/DL) 8.1 L 7.0 *L Hct (37 - 47 %) 25.3 L 21.9 L MCV (81.0 - 99.0 FL) 82.9 81.2 MCH (27.0 - 31.0 PG) 26.7 L 26.0 L RDW (11.5 - 14.5 %) 23.8 H 25.6 H Plt Count (130 - 400 /CUMM) 124 L 132 MPV (7.4 - 10.4 FL) 9.5 9.7 Gran % (42.2 - 75.2 %) 77.8 H 75.7 H Lymphocytes % (20.5 - 51.1 %) 13.8 L 14.9 L Monocytes % (1.7 - 9.3 %) 7.3 7.6 Eosinophils % (0 - 5 %) 0.5 0.8 Basophils % (0.0 - 2.0 %) 0.6 1.0 Absolute Granulocytes (1.4 - 6.5 /CUMM) 7.9 H 6.8 H Absolute Lymphocytes (1.2 - 3.4 /CUMM) 1.4 1.3 Absolute Monocytes (0.10 - 0.60 /CUMM) 0.7 H 0.7 H Absolute Eosinophils (0.0 - 0.7 /CUMM) 0.1 0.1 Absolute Basophils (0.0 - 0.2 /CUMM) 0.1 0.1 PUBS MCHC (33.0 - 37.0 G/DL) 32.2 L 32.0 L 11/07 Blood Gas pH (7.35 - 7.45 PH) 7.43 pCO2 (35 - 45 TORR) 38 pO2 (80 - 100 TORR) 91 HCO3 (21 - 28 MEQ/L) 24 ABG O2 Sat (Measured) (>96.0 %) 95.0 L P-50 (Temp Corrected) N Carboxyhemoglobin (1.5 - 5.0 %) 1.0 L O2 Concentration % 2L Temperature (97.0 - 100.0 FARH) 99.7 O2 Delivery Method NC Chemistry Troponin I (< 0.11 ng/ml) 0.02 Cancelled Miscellaneous Phlebotomy Draw Site RIGHT RADIAL Recent Imaging Studies: ct HEAD IMPRESSION: No acute intracranial pathology. No acute hemorrhage. Diffuse white matter hypoattenuation, corresponding to area of T2 signal abnormality on prior MRI. Demyelinating disease is a consideration with this appearance. Assessment/Plan Assessment: EXACERBATION OF MS SYMPTOMS, POSSIBLY DUE TO FEVER Plan: 1.OT/PT PATIENT WAS ABLE TO USE WHEELCHAIR AND FEED SA=ELF; NOW UNABLE TO DO SO 2. MRI BRAIN/CEREVICAL SPINE WITH JUSTIN PATIENT HAS BACLOFEN PUMP, BUT DAUGHTER STATES MRU\I SAFE AND HAS HAD MRIS IN PAST IF INFLAMMATORY LESIONS, CONSIDER METHYLPREDNISONE 3. PATIENT MAY NEED REHAB AFTER HOSPITALIZTION
--- NOTE | 2016-11-08 21:05 | ELECTROENCEPHALOGRAM REPORT ---
Electroencephalogram Report Electroencephalogram Results Date of service: 11/08/16 Attending MD: KAVON CROWDER MD Dimethylaniline Sulfator Operator: Pippa Ramirez EEG Number: [id number] Test Utilizes: 10-20 system, 21 lead 18 channel digital recording Pertinent Hx/Physical/Neuro Findings/Clin Diagnosis: mental status change Inpatient Medications: Current Medications Sig/Sydni Start time Last Medication Dose Route Stop Time Status Admin Acetaminophen 1,000 MG Q8P PRN 11/07 0445 AC 11/07 N/A 1 UNIT IV 2037 Acetaminophen 650 MG Q6P PRN 11/07 0430 AC PO Ceftriaxone Sodium 1,000 MG DAILY 11/07 1000 AC 11/08 IV 1708 Dextrose/Sodium 1,000 ML Q13H 11/08 0000 DC 11/08 Chloride IV 11/08 1259 0447 Sodium Chloride 1,000 ML Q10H 11/07 0330 DC 11/08 IV 0002 Interpretation: EEG in wake state Background is 5-6 cps activity Medium voltage 22-24 cps activity frontally Photic stimulation: no abnormalities No focal or epileptiform activity Impression: Abnormal EEG due to background slowing indicative of diffuse cerebrak dysfunction
[2016-11-08 22:44] VITALS: BP 130/80
[2016-11-09 07:10] VITALS: BP 138/80
--- NOTE | 2016-11-09 07:38 | PN- Housestaff ---
Subjective Follow-up For: Mental status Hematuria Anemia History of MS History of DVT Subjective: Afebrile, more awake and alert today, no current complaint, no overnight events reported. Patient has a Kauffman in with a urinary being a clear with no blood on it. Review of Systems Constitutional: Reports: no symptoms. Denies: chills, fever. Objective Last 24 Hrs of Vital Signs/I&O Vital Signs Date Time Temp Pulse Resp B/P Pulse O2 O2 Flow FiO2 Ox Delivery Rate 11/09 0710 98.1 95 20 138/80 90 Room Air 11/09 0000 91 11/08 2244 98.6 90 20 130/80 91 Room Air 11/08 1600 Nasal 2.0L Cannula 11/08 1420 98.0 82 20 120/80 92 11/08 1200 95 Nasal 2.0L Cannula Intake & Output 11/09 1600 11/09 0800 11/09 0000 Intake Total 240 350 Output Total 850 1300 Balance -610 -950 Intake, Oral 240 350 Number 0 Bowel Movements Output, Urine 850 1300 Physical Exam General Appearance: Alert, Oriented X3, Cooperative, No Acute Distress Skin: No Rashes HEENT: Atraumatic, PERRLA, EOMI, Mucous Membr. moist/pink Cardiovascular: Regular Rate, Normal S1, Normal S2, No Murmurs Lungs: Clear to Auscultation, Normal Air Movement Abdomen: Soft, No Tenderness Neurological: strength is decreased in upper extremity with right being 4/5 and left being 3/5. Lower extremity cannot be assessed as patient is not following commands Extremities: No Cyanosis, trace edema over LE bilaterally Current Medications: Current Medications Sig/Sydni Start time Last Medication Dose Route Stop Time Status Admin Acetaminophen 1,000 MG Q8P PRN 11/07 0445 AC 11/07 N/A 1 UNIT IV 2037 Acetaminophen 650 MG Q6P PRN 11/07 0430 AC PO Ceftriaxone Sodium 1,000 MG 1700 11/09 1700 AC IV Ceftriaxone Sodium 1,000 MG DAILY 11/07 1000 DC 11/08 IV 1708 Dextrose/Sodium 1,000 ML Q13H 11/08 0000 DC 11/08 Chloride IV 11/08 1259 0447 Last 24 Hrs of Lab/Josh Results Last 24 Hrs of Labs/Mics: Laboratory Tests 11/09/16 0755: CBC w Diff Pending, WBC Pending, RBC Pending, Hgb Pending, Hct Pending, MCV Pending, MCH Pending, RDW Pending, Plt Count Pending, MPV Pending, PUBS MCHC Pending Assessment/Plan Assessment: #Alter mental status/confusion Likely secondary to multiple factors including UTI, hypercalcemia, hemorrhagic anemia(hematuria), long history of MS. Initial head CT did not show evidence of stroke. Patient baseline mentation and ambulation got significantly affected. Neurology and urology armboards. PTH level is normal, vitamin D is within normal limits.(Patient take Vit D supplements). * Patient continued on ceftriaxone 1000 mg IV for UTI * MRI brain/cervical spine with gadolinium was order based on neurology recommendation * We'll repeat CBC daily * If MRI is positive for acute MS exacerbation, patient will be started on IV steroid * We will discuss with the outsole caser the need for safe discharge(STR) #Hematuria Patient had right-sided blood in her urine on the day of admission, she was found to have a low H&H. Patient so far received 2 packed RBCs, she is maintaining a stable H&H. CT abdomen; Bladder wall thickening noted. This can be cause by UTI, however cancer needs to be excluded. Urology recommended avoiding anesthesia given her mental status change, especially that hematuria stopped, she is maintaining a good H&H and the cystoscope is not emergent and it 's safer to be done as an elective Procedure after medical clearance. * We will follow urology recommendations regard the best time of cystoscopy and urinary bladder biopsy. #Lower extremity edema left> right. Patient has symmetrical lower extremity edema, she also had leukocytosis with no focus of infection can be identified. * Ultrasound to exclude DVT Regular diet DVT prophylaxis FULL code Problem List: 1. Altered mental status 2. Anemia 3. Hematuria Pain Ratin Pain Location: na Pain Goal: Remain pain free Pain Plan: See assessment and plan Tomorrow's Labs & Rationales: See assessment and plan
[2016-11-09 08:49] LABS: ABSOLUTE BASOPHIL COUNT 0 /CUMM (0.0-0.2); ABSOLUTE EOSINOPHIL COUNT 0.1 /CUMM (0.0-0.7); ABSOLUTE GRANULOCYTE CT 9.8 /CUMM (1.4-6.5); ABSOLUTE LYMPH COUNT 1.6 /CUMM (1.2-3.4); BASOPHIL % 0.1 % (0.0-2.0); EOSINOPHIL % 0.6 % (0-5); GRANULOCYTE % 78.7 % (42.2-75.2); HEMATOCRIT 26.4 % (37-47); MEAN CORPUSCULAR HGB CONC 32.7 G/DL (33.0-37.0); MEAN CORPUSCULAR VOLUME 82.7 FL (81.0-99.0); PLATELET COUNT 123 /CUMM (130-400); RBC DISTRIBUTION WIDTH 23.4 % (11.5-14.5); RED BLOOD CELL CT 3.19 /CUMM (4.20-5.40); WHITE BLOOD CELL COUNT 12.5 /CUMM (4.8-10.8)
--- NOTE | 2016-11-09 10:53 | RADIOLOGY REPORT ---
EXAMINATION: XR PORTABLE CHEST CLINICAL INFORMATION: Withdrawn and aspirated COMPARISON: 11/07/2016 chest. TECHNIQUE: Portable AP view of the chest was obtained. FINDINGS: There is bibasilar haziness suggestive of effusion with underlying atelectasis. Infiltrate. The upper lungs are clear. The heart size and pulmonary vascularity is normal. No gross bony abnormality seen except for old healed overlapping left posterior fifth, sixth and seventh rib fractures. IMPRESSION: Bibasilar haziness suggestive of effusion with underlying atelectasis or scarring. No change from 11/07/2016.
--- NOTE | 2016-11-09 12:30 | NUR ---
OCCUPATIONAL THERAPY NOTE: OT CONSULT RECEIVED. PT WITH AN US ORDER TO R/O DVT. OT WILL F/U PENDING RESULTS ON SATURDAY.
--- NOTE | 2016-11-09 14:29 | Discharge Summary ---
Visit Information Visit Dates Admission Date: 11/07/16 Discharge Date: 11/15/16 Hospital Course Course Attending Physician: KAVON CROWDER MD Primary Care Physician: AMERICA MAYORGA MD Other Care Providers: Neuro, urology Hospital Course: Patient is a 56-year-old woman with a past medical history significant for multiple sclerosis-wheel chair bound, hx of multiple sclerosis, Left leg DVT on Xarelto (2008) presented to the ED for evaluation of altered mental status and weakness and lethargy. Most of the history was obtained from the daughter. According to the daughter she seemed to be confused 4 days ago with slurring of speech. When she went to visit her on admission day around 9 PM, found her on the floor confused. Patient lives with her boyfriend, who helps her in ADLS and IADLs. Boyfriend had 24 hour shift and patient was alone during that time , and it was not clear whether she lost consciousness and how long she was On the floor. The daughter was concerned and brought to the ED for further evaluation. Daughter mentioned that she has an intrathecal baclofen pump for spasticity from multiple sclerosis, that is currently managed by a physiatry assist in [place], Dr. Kendrick Napoles and was recently refilled. No hx of drug abuse. She smokes on a daily basis half pack a day for more than 40 years. No alcohol. ROS was negative. Vitals: Afebrile, pulse, RR, blood pressure, O2 saturation within acceptable range. On examination A O 2, no acute distress, slow to respond, ?Secondary deficit, slow speech, pinpoint pupils, reactive, horizontal and vertical nystagmus, no cranial nerve deficit, upper extremity strength 4+ / 5, increased tone, lower extremity weak 2/5. Chronic stasis changes bilateral lower extremity , pitting edema, denuded skin on the dorsal aspect of left foot, pressure ulcer inferior to left buttock, obvious bleeding through Kauffman catheter, no obvious vaginal bleeding on superficial exam, CVS: S1-S2, RRR. RS: Clear" bilaterally. Abdomen: Distended, soft, NT, bowel sounds present. Pump on the left side. Labs: WBC 9.9 with neutrophils 79%, hemoglobin 6.9, MCV 83.6, RDW 28.3, platelets 146, bicarbonate 31, BUN 26, creatinine 0.6, calcium 11.3, AST 55, ALT 70, alkaline phosphatase 221, ammonia less than 9, CK 233, troponin less than 0.01 Urine grossly bloody, positive for nitrites, leukocyte esterase, U tox negative, alcohol less than 10 CT head did not show any acute intracranial pathology. CT abdomen and pelvis with IV contrast, CXR, head CT: - No acute intracranial pathology. No acute hemorrhage. - Diffuse white matter hypoattenuation, corresponding to area of T2 signal abnormality on prior MRI. Demyelinating disease is a consideration with this appearance. - Smaller pleural effusion. Hazy basilar opacities may represent atelectasis or pneumonia. - Improved mild scarring at the left lung base. - Stable cholelithiasis. - Stable large amount of stool in the colon. - No evidence of intraperitoneal or retroperitoneal hemorrhage. Hospital course She was admitted on general medicine floo for mild confusion, acute blood loss anemia, grossly hematuria hypercalcemia a as well as possible UTI. For UTI she was started on IV ceftriaxone. Blood cultures and urine cultures remained negative. For her hematuria urology Dr. Deleon, was consulted. Initially plan was to do cystoscopy but later on it was postponed because of her mental status. CT abdomen and pelvis showed bladder wall thickening and there was a suspicion for bladder cancer. Patient was advised to see Dr. Deleon as an outpatient so she can have cystoscopy/biopsy and further workup. Later on her urine was clear and there was no further episode of hematuria. Initially she dropped her H&H up to 6.9/21.8. She was transfused with 2 units of packed transfusion while in hospital. Her H&H was stable later on. She was also be seen by neurologist while in hospital. EEG and MRI was ordered. EEG: Interpretation: EEG in wake state Background is 5-6 cps activity Medium voltage 22-24 cps activity frontally Photic stimulation: no abnormalities No focal or epileptiform activity Impression: Abnormal EEG due to background slowing indicative of diffuse cerebrak dysfunction. MRI still pending. There was a plan that if MRI shows new MS lesions then we can start her on IV Solu-Medrol. (Before ordering MRI it was made sure that her baclofen pump is MRI compatible. We called Dr. Mclaughlin's office and found out that baclofen pump shuts off before MRI and restart after MRI automatically. They also give us contact number for [employer] person who will come in hospital after MRI to confirm that pump has been restarted.) PT/OT was ordered for her. During the course of hospitalization Her boyfriend claimed that her front tooth was broken. Patient did not remember finding the tooth therefore was a possibility that she might had swallowed it. Patient was also complaining of difficulty swallowing. Chest x-ray was ordered that did not show any acute changes. Swallow evaluation was ordered. Hypertension level was high when she came in, 11.3. Her vitamin D and PTH levels are normal. Repeat calcium levels came back within normal range. Since admission she was having bilateral lower extremity swelling. Bilateral venous Doppler ultrasound was ordered. Hwich was neg. Chest CTA was also neg for PE. Allergies: Coded Allergies: NO KNOWN ALLERGIES (03/13/14) Disposition Summary Disposition Principal Diagnosis: Altered mental status most likely secondary to urinary tract infection Additional Diagnosis: Hematuria Multiple sclerosis Acute blood loss anemia Hypercalcemia Discharge Disposition: home health services Discharge Instructions General Discharge Information Code Status: Full Code Patient's Diet: Heart healthy diet Patient's Activity: Wheelchair-bound Follow-Up Instructions/Appts: 1. Please follow-up with primary care provider in next week after discharge 2. Please follow-up with your neurologist, Dr. Ramirez next week after discharge Medications at Discharge Discharge Medications: Continue taking these medications: Rivaroxaban (Xarelto) 20 MG TABLET 20 Milligram ORAL DAILY Qty = 30 Comments: Last Taken: 11/14/16 Time: 5 PM Escitalopram Oxalate (Lexapro) 10 MG TABLET 1 Tablet ORAL DAILY Comments: Last Taken: 11/14/16 Time: 5 PM Rosuvastatin Calcium (Crestor) 10 MG TABLET 1 Tablet ORAL DAILY Comments: Last Taken: 11/14/16 Time: 5 PM Copies To: TIERRA TRAMMELL,AMERICA
--- NOTE | 2016-11-09 14:40 | PN- Att Addend ---
Attending Addendum Attending Brief Note Patient seen and examined, much more awake and denies any complaints. Her boyfriend claims that her front tooth was broken. Patient does not remember finding the tooth therefore is a possibility but swallowed it. Vital Signs Date Time Temp Pulse Resp B/P Pulse O2 O2 Flow FiO2 Ox Delivery Rate 11/09 0710 98.1 95 20 138/80 90 Room Air 11/09 0000 91 11/08 2244 98.6 90 20 130/80 91 Room Air 11/08 1600 Nasal 2.0L Cannula on exam; aox3, nad. cv; s1,s2, rrr resp; clear abd; soft, nt, bs+ ext; 2+ edema b/l le with dry scaling. Laboratory Tests 11/09 0755 Hematology CBC w Diff NO MAN DIFF REQ WBC (4.8 - 10.8 /CUMM) 12.5 H RBC (4.20 - 5.40 /CUMM) 3.19 L Hgb (12.0 - 16.0 G/DL) 8.6 L Hct (37 - 47 %) 26.4 L MCV (81.0 - 99.0 FL) 82.7 MCH (27.0 - 31.0 PG) 27.0 RDW (11.5 - 14.5 %) 23.4 H Plt Count (130 - 400 /CUMM) 123 L MPV (7.4 - 10.4 FL) 9.0 Gran % (42.2 - 75.2 %) 78.7 H Lymphocytes % (20.5 - 51.1 %) 12.7 L Monocytes % (1.7 - 9.3 %) 7.9 Eosinophils % (0 - 5 %) 0.6 Basophils % (0.0 - 2.0 %) 0.1 Absolute Granulocytes (1.4 - 6.5 /CUMM) 9.8 H Absolute Lymphocytes (1.2 - 3.4 /CUMM) 1.6 Absolute Monocytes (0.10 - 0.60 /CUMM) 1.0 H Absolute Eosinophils (0.0 - 0.7 /CUMM) 0.1 Absolute Basophils (0.0 - 0.2 /CUMM) 0 PUBS MCHC (33.0 - 37.0 G/DL) 32.7 L A/P; 56-year-old female with history significant for multiple sclerosis, not on any particular treatment except for baclofen for muscle spasms, history of DVT on Xarelto who is admitted with mild confusion, acute blood loss anemia, grossly hematuria hypercalcemia a as well as possible UTI. To see more lesions. If that is the case and she should be started on 1 g of Solu-Medrol daily. Patient does have slight leukocytosis today. She does provide a history of possible swallowing 2 which was loose. Patient's nurse also mentioned that she had some difficulty with swallowing fruits. We obtained a chest x-ray which does not show any evidence of pneumonia but shows atelectasis. At this point we should get a swallow evaluation. Will also check lower extremity Doppler ultrasound to rule out DVT. Her H&H remains pretty stable. Urine culture so far remained negative but urinalysis was dirty. Urology seen the patient and recommended outpatient workup. It is a possibility patient could have bladder cancer that needs further workup. We'll follow-up on the MRI. Patient might need to go to rehabilitation upon discharge.
[2016-11-09 14:51] VITALS: BP 140/82
--- NOTE | 2016-11-09 15:25 | NUR ---
WOUND CARE: REQUESTED BY NURSING TO EVALUATE PT FOR SKIN ALTERATION PRESENT ON ADMISSION - HX OBTAINED FROM DAUGHTER REYES WHOM WAS PRESENT AND ASSISTED WITH EVAL - STATED PT IS INCONTINENT STOOL AND URINE, AND SPENDS A LOT OF TIME SITTING IN WC AT HOME - IMMOBILITY - ALSO REPORTS PT HAS REOCCURING PRESSURE INJURIES WHICH HEAL AND REOPEN REPEATEDLY - LEFT ISCHIUM NOTED WITH A STAGE 2 PRESSURE INJURY 3X3 CM SUPERIFICIAL SKIN BREAKDOWN PINK DERMAL FILL WTIH AREA OF INDURATION / SCAR TISSUE NOTED - SCANT SEROUS DRNG - LEFT DORSAL FOOT (2) SKIN TEARS REPORTED BY ALEE PRESENTED INITIALLY BLISTERS THAT HAD OPENED - 3 X 2.5 CM AND 2 X 2.5 CM PINK DRY DESICATED FILL WITH EDEMA AT DORSAL FOOT - NON DNRG- [facility] PRESENT AT BEDSIDE FOR EVAL MADE AWARE OR SKIN INTEGRITY ISSUES RECOMMENDATION: CLEANSE BUTTOCKS WTIH SOAP AND WATER AND PAT DRY FB DESITIN OINTMENT QS AND PRN AFTER INC EPISODES - SIDELYING POSITION - PT WOULD BENEFIT FROM ROHO CUSHION TO WC AND POSSIBLE PRESSURE MAPPING - CLEANSE LEFT FOOT WOUNDS WITH NS FB HYDROGEL AND XEROFORM FB DPD DAILY ADN PRN - TO NOTE, PT ALSO HAS (3) 0.5 CM DTI TO HEEL PRESENT BLOOD FILLED BLISTER - OFFLOAD FEET ON PILLOWS AT ALL TIMES PLEASE
--- NOTE | 2016-11-09 16:39 | NUR ---
SPOKE WITH POA DAUGHTER GLENNY REGARDING POC MOVING FORWARD. STATES HER MOM IS INCREASINGLY CONFUSED AND AGITATED. PT SAYING SHE WANTS TO LEAVE BUT DOES NOT KNOW WHERE SHE IS. PULLING AT IV LINES AND QUESADA. NEEDS FREQUENT REORIENTATION. DAUGHTER GLENNY WOULD LIKE TO MAKE SURE PT IS SEEN BY OT AND PHYS THERAPY DUE TO CONTRATION OF HANDS. PT HAD ELECTRIC WHEELCHAIR AT HOME AND OPERATES IT HERSELF. AT THIS TIME, PT CANNOT HOLD CUPS OR FEED HERSELF. NEEDS TO BE FED. INCREASED DIFFICULTY SWALLOWING. PT'S DAUGHTER REPORTS THAT PT IS MISSING A FRONT TOOTH. MD NOTIFIED. PT IN MRI AND NEEDED TO RECEIVE IV ATIVAN IN ORDER TO HAVE THE MRI COMPLETED. CASE MANAGEMENT SPOKE WITH PT'S DAUGHTER AND REVIEWED OPTIONS MOVING FORWARD. REASSURED THAT PT WILL NOT BE DISCHARGED UNTIL LESS CONFUSED AND TREATMENT IS INITIATED.
--- NOTE | 2016-11-09 16:54 | NUR ---
SPEECH THERAPY: ATTEMPTED TO SEE PT FOR COMPLETION OF SPEECH/LANGUAGE EVALUATION. PER RN, PT CURRENTLY PARTICIPATING IN MRI, UNABLE TO BE SEEN. ST CONTINUE TO FOLLOW FOR DIET TOLERANCE/FULL SPEECH AND LANGUAGE EVALUATION ON SUNDAY 11/12. REC PT CONTINUE W/ REGULAR DIET (WITH SOFT/MOISTENED FOODS ORDERED) AND THIN LIQUIDS. D/W RN.
--- NOTE | 2016-11-09 17:18 | ULTRASOUND REPORT ---
EXAMINATION: US TRIPLEX LOWER EXTREMITY, BILATERAL CLINICAL INFORMATION: Bilateral lower extremity edema. COMPARISON: Lower extremity ultrasound examination dated 06/28/2009. TECHNIQUE: Color-flow triplex imaging with spectral analysis and compression Doppler were performed on the bilateral lower extremities. FINDINGS: Respiratory variation, normal compression and augmented flow are noted throughout the bilateral lower extremities. The visualized common femoral vein, greater saphenous vein, femoral vein, profunda femoral vein, popliteal vein and visualized mid calf venous segments show no evidence of deep venous thrombosis. There is no Caldwell's cyst. IMPRESSION: Normal triplex scan without evidence of deep venous thrombosis involving the bilateral lower extremities.
--- NOTE | 2016-11-09 17:29 | MRI REPORT ---
EXAMINATION: MR BRAIN AND CERVICAL SPINE WITHOUT CONTRAST. CLINICAL INFORMATION: Evaluate for new or worsening demyelinating disease. COMPARISON: MRI brain and cervical spine 02/04/2009. TECHNIQUE: Multiplanar MR imaging of the brain and cervical spine was performed without the intravenous administration of gadolinium contrast. FINDINGS: Brain: Due to the extent of motion artifact, the capability of evaluating new disease is significantly limited. There are numerous supratentorial and infratentorial white matter lesions with a predilection for the callososeptal interface and juxtacortical white matter consistent with the patient's clinical history of multiple sclerosis. Grossly there is no evidence of acute territorial infarct. Major intracranial vascular flow voids are maintained. There is no intracranial mass effect or midline shift. No abnormal extra axial collection. Lateral and third ventricles are proportionate to the subarachnoid spaces. No hydrocephalus. Midline structures including the cervicomedullary junction are normal. Bone marrow signal intensity is unremarkable. There is no mastoid or middle ear effusion. Paranasal sinuses are well-aerated with the exception of mild disease within the left anterior ethmoid air cells. Globes and orbits are symmetric. Cervical spine: Patient motion also degrades image quality on this portion of the examination therefore the diagnostic accuracy is significantly limited. There is degenerative spondylosis of the level of C5-C6 that appears to have slightly progressed when compared to the 02/04/2009 examination. Eccentric cord lesions are partially visualized at the level of C1 and C2. An effective comparison cannot be made to the prior examination due to the extent of image degradation. Uncovertebral joint spurring causes at least moderate right and mild left neuroforaminal encroachment at this level. Limited visualization of the soft tissues of the neck reveals no abnormal finding. IMPRESSION: Due to the extent of patient motion on this examination it is essentially nondiagnostic for the purposes of detecting new or worsening disease white matter disease. Multiple white matter lesions involving the supratentorial and infratentorial brain as well as the cervical cord are consistent with the patient's clinical history of multiple sclerosis.
--- NOTE | 2016-11-09 18:25 | PN- Neurology ---
Subjective Subjective: Spoke at length with the patient's daughter Laxmi who was in the room. Patient is currently sedated from Ativan which she received prior to MRI. Her daughter has noticed a reduction in her hand function which is worse compared to her baseline. The [employer] rep is here to check that her intrathecal baclofen pump has restarted status post MRI. Review of Systems: As above. Currently unobtainable from the patient Objective Vital Signs and I&Os Vital Signs Date Time Temp Pulse Resp B/P Pulse O2 O2 Flow FiO2 Ox Delivery Rate 11/09 1451 98.2 82 20 140/82 92 11/09 1439 Room Air 2.0L 11/09 0710 98.1 95 20 138/80 90 Room Air 11/09 0000 91 11/08 2244 98.6 90 20 130/80 91 Room Air Intake & Output 11/09 1600 11/09 0800 11/09 0000 11/08 1600 11/08 0800 11/08 0000 Intake Total 240 240 350 0 709 1200 Output Total 513 974 4240 275 325 Balance -410 -610 -950 0 434 875 Intake, Blood 350 Product Intake, IV 0 359 1200 Intake, Oral 240 240 350 0 0 Number 0 0 0 0 Bowel Movements Output, Urine 063 812 0670 275 325 Physical Exam: Sedated, opens eyes briefly to voice, does not cooperate for examination Current Medications: Current Medications Sig/Sydni Start time Last Medication Dose Route Stop Time Status Admin Acetaminophen 1,000 MG Q8P PRN 11/07 0445 AC 11/07 N/A 1 UNIT IV 2037 Acetaminophen 650 MG Q6P PRN 11/07 0430 AC PO Ceftriaxone Sodium 1,000 MG 1700 11/09 1700 AC 11/09 IV 1755 Ceftriaxone Sodium 1,000 MG DAILY 11/07 1000 DC 11/08 IV 1708 Lorazepam 0.5 MG ONCE ONE 11/09 1600 DC 11/09 IV 11/09 1601 1616 Patient Medication 1 ED .STK-MED ONE 11/09 1410 DC Teaching ED 11/09 1411 Zinc Oxide 1 FRACISCO BID 11/09 2200 AC TOP Results Last 24 Hours of Lab Results: Laboratory Tests 11/09 0755 Hematology CBC w Diff NO MAN DIFF REQ WBC (4.8 - 10.8 /CUMM) 12.5 H RBC (4.20 - 5.40 /CUMM) 3.19 L Hgb (12.0 - 16.0 G/DL) 8.6 L Hct (37 - 47 %) 26.4 L MCV (81.0 - 99.0 FL) 82.7 MCH (27.0 - 31.0 PG) 27.0 RDW (11.5 - 14.5 %) 23.4 H Plt Count (130 - 400 /CUMM) 123 L MPV (7.4 - 10.4 FL) 9.0 Gran % (42.2 - 75.2 %) 78.7 H Lymphocytes % (20.5 - 51.1 %) 12.7 L Monocytes % (1.7 - 9.3 %) 7.9 Eosinophils % (0 - 5 %) 0.6 Basophils % (0.0 - 2.0 %) 0.1 Absolute Granulocytes (1.4 - 6.5 /CUMM) 9.8 H Absolute Lymphocytes (1.2 - 3.4 /CUMM) 1.6 Absolute Monocytes (0.10 - 0.60 /CUMM) 1.0 H Absolute Eosinophils (0.0 - 0.7 /CUMM) 0.1 Absolute Basophils (0.0 - 0.2 /CUMM) 0 PUBS MCHC (33.0 - 37.0 G/DL) 32.7 L Recent Imaging Studies: MRI brain and cervical spine 11/09/2016 COMPARISON: MRI brain and cervical spine 02/04/2009. TECHNIQUE: Multiplanar MR imaging of the brain and cervical spine was performed without the intravenous administration of gadolinium contrast. FINDINGS: Brain: Due to the extent of motion artifact, the capability of evaluating new disease is significantly limited. There are numerous supratentorial and infratentorial white matter lesions with a predilection for the callososeptal interface and juxtacortical white matter consistent with the patient's clinical history of multiple sclerosis. Grossly there is no evidence of acute territorial infarct. Major intracranial vascular flow voids are maintained. There is no intracranial mass effect or midline shift. No abnormal extra axial collection. Lateral and third ventricles are proportionate to the subarachnoid spaces. No hydrocephalus. Midline structures including the cervicomedullary junction are normal. Bone marrow signal intensity is unremarkable. There is no mastoid or middle ear effusion. Paranasal sinuses are well-aerated with the exception of mild disease within the left anterior ethmoid air cells. Globes and orbits are symmetric. Cervical spine: Patient motion also degrades image quality on this portion of the examination therefore the diagnostic accuracy is significantly limited. There is degenerative spondylosis of the level of C5-C6 that appears to have slightly progressed when compared to the 02/04/2009 examination. Eccentric cord lesions are partially visualized at the level of C1 and C2. An effective comparison cannot be made to the prior examination due to the extent of image degradation. Uncovertebral joint spurring causes at least moderate right and mild left neuroforaminal encroachment at this level. Limited visualization of the soft tissues of the neck reveals no abnormal finding. IMPRESSION: Due to the extent of patient motion on this examination it is essentially nondiagnostic for the purposes of detecting new or worsening disease white matter disease. Multiple white matter lesions involving the supratentorial and infratentorial brain as well as the cervical cord are consistent with the patient's clinical history of multiple sclerosis. DICTATED BY: DOROTHEA SNELL MD DATE/TIME DICTATED:11/09/161714 DIFFUSION FURNACE OPERATOR:DIEGO DATE/TIME TRANSCRIBED:11/09/161714 Interpretation: EEG in wake state Background is 5-6 cps activity Medium voltage 22-24 cps activity frontally Photic stimulation: no abnormalities No focal or epileptiform activity Impression: Abnormal EEG due to background slowing indicative of diffuse cerebral dysfunction DICTATED BY: CLIFF KING MD DATE/TIME DICTATED:11/08/162100 Assessment/Plan Assessment: MS, possibly exacerbating remitting at onset in her late teens, has since followed a secondary progressive versus chronic progressive course. Currently she is likely experiencing a pseudo-exacerbation of her MS in the setting of a urinary tract infection Family reports a loss in hand function which is new She was found on the floor at home MRI does not show any evidence of traumatic cervical cord injury Plan: Continue to treat underlying infection We will reexamine the patient in the next 24-48 hours after the Ativan has worn off Will hold off on consideration for IV steroids pending reexamination Consider for inpatient short-term rehabilitation once she is medically stable for discharge. The daughter's preference is for her to go to the [facility] in [place]
[2016-11-09 22:53] VITALS: BP 122/58
[2016-11-10 06:45] VITALS: BP 126/60
--- NOTE | 2016-11-10 07:24 | PN- Housestaff ---
See Addendum Subjective Follow-up For: Mental status Hematuria Anemia History of MS History of DVT Subjective: Stable and afebrile, her mentation continues to improve. No acute overnight events reported. denies any current complaint. No blood coming out the Kauffman catheter. Review of Systems Constitutional: Reports: no symptoms. Objective Last 24 Hrs of Vital Signs/I&O Vital Signs Date Time Temp Pulse Resp B/P Pulse O2 O2 Flow FiO2 Ox Delivery Rate 11/10 1406 98.8 70 20 120/80 93 11/10 0645 97.9 77 14 126/60 95 Nasal 2.0L Cannula 11/10 0000 Nasal 2.0L Cannula 11/09 2253 98.5 77 12 122/58 95 Nasal 2.0L Cannula Intake & Output 11/10 1600 11/10 0800 11/10 0000 Intake Total 680 500 Output Total 600 550 450 Balance 80 -550 50 Intake, IV 0 20 Intake, Oral 680 480 Number 0 Bowel Movements Output, Urine 600 550 450 Physical Exam General Appearance: Alert, Oriented X3, Cooperative, No Acute Distress Skin: No Rashes HEENT: Atraumatic, PERRLA, EOMI, Mucous Membr. moist/pink Cardiovascular: Regular Rate, Normal S1, Normal S2, No Murmurs Lungs: Clear to Auscultation Abdomen: Soft, No Tenderness Neurological: Normal Speech, decreased strength in the upper extremity more than lower extremity, this is her baseline because of MS. Extremities: No Cyanosis, No Edema Assessment/Plan Assessment: #Alter mental status/confusion Likely secondary to multiple factors including UTI, hypercalcemia, hemorrhagic anemia(hematuria), long history of MS. Initial head CT did not show evidence of stroke. MRI; shows multiple white matter lesion that consists with a history of multiple sclerosis. Patient baseline mentation and ambulation got significantly affected. Neurology and urology armboards. PTH level is normal, vitamin D is within normal limits.(Patient take Vit D supplements). * Patient continued on ceftriaxone 1000 mg IV for UTI * We'll repeat CBC daily to follow-up white blood cell and hemoglobin * We will discuss with the family preservation caseworker the need for safe discharge(STR) * We will order nutritional consult on the patient #Hematuria Patient had right-sided blood in her urine on the day of admission, she was found to have a low H&H. Patient so far received 2 packed RBCs, she is maintaining a stable H&H. CT abdomen; Bladder wall thickening noted. This can be cause by UTI, however cancer needs to be excluded. Urology recommended avoiding anesthesia given her mental status change, especially that hematuria stopped, she is maintaining a good H&H and the cystoscope is not emergent and it 's safer to be done as an elective Procedure after medical clearance. * We will follow urology recommendations regard the best time of cystoscopy and urinary bladder biopsy. #Lower extremity edema left> right. Patient has symmetrical lower extremity edema, she also had leukocytosis with no focus of infection can be identified. * Ultrasound to excluded DVT Regular diet DVT prophylaxis FULL code Problem List: 1. Hematuria 2. Anemia 3. Altered mental status Pain Ratin Pain Location: NA Pain Goal: Remain pain free Pain Plan: See assessment and plan Tomorrow's Labs & Rationales: See assessment and plan
[2016-11-10 08:23] LABS: ABSOLUTE BASOPHIL COUNT 0 /CUMM (0.0-0.2); ABSOLUTE EOSINOPHIL COUNT 0.2 /CUMM (0.0-0.7); ABSOLUTE GRANULOCYTE CT 8.4 /CUMM (1.4-6.5); ABSOLUTE LYMPH COUNT 1.5 /CUMM (1.2-3.4); ABSOLUTE MONOCYTE COUNT 0.7 /CUMM (0.10-0.60); BASOPHIL % 0.4 % (0.0-2.0); EOSINOPHIL % 1.7 % (0-5); GRANULOCYTE % 77.4 % (42.2-75.2); HEMATOCRIT 23.9 % (37-47); MEAN CORPUSCULAR HGB 27.1 PG (27.0-31.0); MEAN CORPUSCULAR HGB CONC 32.3 G/DL (33.0-37.0); MEAN CORPUSCULAR VOLUME 83.8 FL (81.0-99.0); MEAN PLATELET VOLUME 8.7 FL (7.4-10.4); PLATELET COUNT 97 /CUMM (130-400); RED BLOOD CELL CT 2.85 /CUMM (4.20-5.40); WHITE BLOOD CELL COUNT 10.9 /CUMM (4.8-10.8)
[2016-11-10 14:06] VITALS: BP 120/80
--- NOTE | 2016-11-10 18:42 | PN- Neurology ---
Subjective Subjective: Awake, alert Oriented to all but day/date Reports fine motor function of R hand is not back to baseline Pt declines STR. Wants to go home. Objective Vital Signs and I&Os Vital Signs Date Time Temp Pulse Resp B/P Pulse O2 O2 Flow FiO2 Ox Delivery Rate 11/10 1406 98.8 70 20 120/80 93 11/10 0645 97.9 77 14 126/60 95 Nasal 2.0L Cannula 11/10 0000 Nasal 2.0L Cannula 11/09 2253 98.5 77 12 122/58 95 Nasal 2.0L Cannula Intake & Output 11/10 1600 11/10 0800 11/10 0000 11/09 1600 11/09 0800 11/09 0000 Intake Total 680 500 240 240 350 Output Total 600 550 450 891 967 5399 Balance 80 -550 50 -410 -610 -950 Intake, IV 0 20 0 Intake, Oral 680 480 240 240 350 Number 0 0 0 Bowel Movements Output, Urine 600 550 450 809 716 4422 Physical Exam: Awake, alert Oriented to all but day/date Dysarthric speech Head tremor Impaired fine motor function of R hand more so than L Current Medications: Current Medications Sig/Sydni Start time Last Medication Dose Route Stop Time Status Admin Acetaminophen 1,000 MG Q8P PRN 11/07 0445 AC 11/07 N/A 1 UNIT IV 2037 Acetaminophen 650 MG Q6P PRN 11/07 0430 AC PO Ceftriaxone Sodium 1,000 MG 1700 11/09 1700 AC 11/10 IV 1634 Methylprednisolone 1,000 MG ONCE ONE 11/10 1845 UNVr IV 11/10 1846 Zinc Oxide 1 FRACISCO BID 11/09 2200 11/10 TOP 1245 Results Last 24 Hours of Lab Results: urine cx (-) to date Laboratory Tests 11/10 0638 Hematology CBC w Diff NO MAN DIFF REQ WBC (4.8 - 10.8 /CUMM) 10.9 H RBC (4.20 - 5.40 /CUMM) 2.85 L Hgb (12.0 - 16.0 G/DL) 7.7 L Hct (37 - 47 %) 23.9 L MCV (81.0 - 99.0 FL) 83.8 MCH (27.0 - 31.0 PG) 27.1 RDW (11.5 - 14.5 %) 24.0 H Plt Count (130 - 400 /CUMM) 97 L MPV (7.4 - 10.4 FL) 8.7 Gran % (42.2 - 75.2 %) 77.4 H Lymphocytes % (20.5 - 51.1 %) 13.6 L Monocytes % (1.7 - 9.3 %) 6.9 Eosinophils % (0 - 5 %) 1.7 Basophils % (0.0 - 2.0 %) 0.4 Absolute Granulocytes (1.4 - 6.5 /CUMM) 8.4 H Absolute Lymphocytes (1.2 - 3.4 /CUMM) 1.5 Absolute Monocytes (0.10 - 0.60 /CUMM) 0.7 H Absolute Eosinophils (0.0 - 0.7 /CUMM) 0.2 Absolute Basophils (0.0 - 0.2 /CUMM) 0 PUBS MCHC (33.0 - 37.0 G/DL) 32.3 L Assessment/Plan Assessment: Encephalopathy, ?d/t UTI-> much improved w/ supportive medical care, IV abx ?Pseudo MS exacerbation WM dz of brain & spinal cord on MRI Initial exac-remit. course per pt Gradual functional decline past 10+ yrs per pt On no immune modulators for many years Has had IV steroids in remote past & staes she tolerated Plan: IV solumed 1 gm/d x 3 days, then d/c Pt wants home rehab services Hoping to get Zachary lift as well Follow up in office in ~ 3wks
[2016-11-10 22:26] VITALS: BP 122/80
[2016-11-11 07:04] VITALS: BP 122/78
[2016-11-11 08:15] LABS: ABSOLUTE BASOPHIL COUNT 0 /CUMM (0.0-0.2); ABSOLUTE EOSINOPHIL COUNT 0 /CUMM (0.0-0.7); ABSOLUTE GRANULOCYTE CT 10.1 /CUMM (1.4-6.5); ABSOLUTE LYMPH COUNT 0.8 /CUMM (1.2-3.4); ABSOLUTE MONOCYTE COUNT 0.1 /CUMM (0.10-0.60); BASOPHIL % 0 % (0.0-2.0); EOSINOPHIL % 0.4 % (0-5); GRANULOCYTE % 91.6 % (42.2-75.2); HEMATOCRIT 26.8 % (37-47); MEAN CORPUSCULAR HGB 27.3 PG (27.0-31.0); MEAN CORPUSCULAR HGB CONC 32.7 G/DL (33.0-37.0); MEAN CORPUSCULAR VOLUME 83.5 FL (81.0-99.0); MEAN PLATELET VOLUME 8.9 FL (7.4-10.4); PLATELET COUNT 113 /CUMM (130-400); RED BLOOD CELL CT 3.21 /CUMM (4.20-5.40); WHITE BLOOD CELL COUNT 11.1 /CUMM (4.8-10.8)
--- NOTE | 2016-11-11 10:05 | PN- Housestaff ---
CHRISTOPHER TRAMMELL,ISMAIL 11/11/16 1005: Subjective Follow-up For: Mental status Hematuria Anemia History of MS History of DVT Subjective: Stable, afebrile, back to her baseline mentation based on her boyfriend, no acute events reported, denies any current complaints. No more hematuria. Review of Systems Constitutional: Reports: no symptoms. Denies: chills, fever. Objective Last 24 Hrs of Vital Signs/I&O Vital Signs Date Time Temp Pulse Resp B/P Pulse O2 O2 Flow FiO2 Ox Delivery Rate 11/11 1455 98.2 90 20 120/70 96 11/11 0704 97.8 69 20 122/78 90 Room Air 11/10 2226 98.6 75 20 122/80 91 Room Air Intake & Output 11/11 1600 11/11 0800 11/11 0000 Intake Total 914 175 7178 Output Total 1600 575 Balance 800 -1360 785 Intake, IV 1000 Intake, Oral 800 240 360 Number 1 Bowel Movements Output, Urine 1600 575 Patient 81.647 kg Weight Physical Exam General Appearance: Alert, Oriented X3, Cooperative, No Acute Distress Skin: No Rashes HEENT: Atraumatic, PERRLA, EOMI, Mucous Membr. moist/pink Cardiovascular: Regular Rate, Normal S1, Normal S2, No Murmurs Lungs: Clear to Auscultation Abdomen: Soft, No Tenderness Extremities: bilateral lower extremity edema Current Medications: Current Medications Sig/Sydni Start time Last Medication Dose Route Stop Time Status Admin Acetaminophen 1,000 MG Q8P PRN 11/07 0445 AC 11/07 N/A 1 UNIT IV 2037 Acetaminophen 650 MG Q6P PRN 11/07 0430 AC PO Ceftriaxone Sodium 1,000 MG 1700 11/09 1700 AC 11/10 IV 1634 Methylprednisolone 1,000 MG ONE ONE 11/11 1300 DC Dextrose/Water 1,000 ML IV 11/11 1502 Methylprednisolone 1,000 MG ONE ONE 11/10 1900 DC 11/10 Dextrose/Water 1,000 ML IV 11/10 2059 1956 Methylprednisolone 1,000 MG ONCE ONE 11/10 1845 CAN IV 11/10 1846 Zinc Oxide 1 FRACISCO BID 11/09 2200 AC 11/11 TOP 0802 Last 24 Hrs of Lab/Josh Results Last 24 Hrs of Labs/Mics: Laboratory Tests 11/11/16 0650: Anion Gap 7, Estimated GFR > 60, BUN/Creatinine Ratio 18.0, CBC w Diff MAN DIFF ORDERED, RBC 3.21 L, MCV 83.5, MCH 27.3, RDW 24.0 H, MPV 8.9, Gran % 91.6 H, Lymphocytes % 7.4 L, Monocytes % 0.6 L, Eosinophils % 0.4, Basophils % 0 L, Absolute Granulocytes 10.1 H, Segmented Neutrophils 92 H, Band Neutrophils 2, Absolute Lymphocytes 0.8 L, Lymphocytes 5 L, Monocytes 1 L, Absolute Monocytes 0.1 L, Absolute Eosinophils 0, Absolute Basophils 0, Nucleated RBCs 2 H, Platelet Estimate DECREASED, Polychromasia 1+, Hypochromic-Microcytic 1+, Poikilocytosis 2+, Anisocytosis 1+, Schistocytes , PUBS MCHC 32.7 L Assessment/Plan Assessment: #Alter mental status/confusion Likely secondary to multiple factors including UTI, hypercalcemia, hemorrhagic anemia(hematuria), long history of MS. Initial head CT did not show evidence of stroke. MRI; shows multiple white matter lesion that consists with a history of multiple sclerosis. Patient baseline mentation and ambulation got significantly affected. Neurology and urology armboards. PTH level is normal, vitamin D is within normal limits.(Patient take Vit D supplements). Patient would like to go home instead of his TR. * Patient continued on ceftriaxone 1000 mg IV for UTI * Patient will receive 1 g of Solu-Medrol today and 1 more tomorrow. * We'll repeat CBC daily to follow-up white blood cell and hemoglobin * We will discuss with the registered nurse hh case manager the need for safe discharge(STR) * We will order nutritional consult on the patient * We will assess the need for the Kauffman catheter in the morning #Hematuria Patient had right-sided blood in her urine on the day of admission, she was found to have a low H&H. Patient so far received 2 packed RBCs, she is maintaining a stable H&H. CT abdomen; Bladder wall thickening noted. This can be cause by UTI, however cancer needs to be excluded. Urology recommended avoiding anesthesia given her mental status change, especially that hematuria stopped, she is maintaining a good H&H and the cystoscope is not emergent and it 's safer to be done as an elective Procedure after medical clearance. * We will follow urology recommendations regard the best time of cystoscopy and urinary bladder biopsy. #Lower extremity edema left> right. Patient has symmetrical lower extremity edema, she also had leukocytosis with no focus of infection can be identified. * Ultrasound to excluded DVT Regular diet DVT prophylaxis FULL code Problem List: 1. Anemia 2. Hematuria 3. Altered mental status Pain Ratin Pain Location: See assessment and plan Pain Goal: Remain pain free Pain Plan: See assessment and plan Tomorrow's Labs & Rationales: CBC and BP GRANT ROJAS MD 11/11/16 1355: Attending MD Review Statement Attending Statement Attending MD Statement: examined this patient, discuss w/resident/PA/ALARM INSTALLATION TECHNICIAN, agreed w/resident/PA/ALARM INSTALLATION TECHNICIAN, reviewed EMR data (avail), discussed with nursing, discussed with case mgmt, amended to note Attending Assessment/Plan: The patient was seen and discussed with house staff. Significant improvement in mental status. As per Dr. Ramirez will give medrol today and tomorrow and then discharge if stable.
[2016-11-11 14:55] VITALS: BP 120/70
[2016-11-11 21:47] VITALS: BP 124/58
[2016-11-12 06:56] VITALS: BP 122/60
--- NOTE | 2016-11-12 07:27 | PN- Housestaff ---
CHRISTOPHER TRAMMELL,[facility] 11/12/16 0727: Subjective Follow-up For: Mental status Hematuria Anemia History of MS History of DVT Subjective: Stable and afebrile. Patient mental status significantly improved comparing to the admission day. She is back to her baseline as per her boyfriend. She denies any current complaints and would like to be discharged home not to short- term rehabilitation. Review of Systems Constitutional: Reports: no symptoms. Denies: chills, fever. Objective Last 24 Hrs of Vital Signs/I&O Vital Signs Date Time Temp Pulse Resp B/P Pulse O2 O2 Flow FiO2 Ox Delivery Rate 11/12 0656 98.1 77 20 122/60 92 Room Air 11/11 2147 97.9 79 20 124/58 91 11/11 1455 98.2 90 20 120/70 96 Intake & Output 11/12 1600 11/12 0800 11/12 0000 Intake Total 100 100 Output Total 850 700 Balance -750 -600 Intake, Oral 100 100 Number 1 Bowel Movements Output, Urine 850 700 Physical Exam General Appearance: Alert, Oriented X3, Cooperative, No Acute Distress Skin: No Rashes HEENT: Atraumatic, PERRLA, EOMI, Mucous Membr. moist/pink Cardiovascular: Regular Rate, Normal S1, Normal S2, No Murmurs Lungs: Clear to Auscultation Abdomen: Soft, No Tenderness Neurological: Normal Speech, strength 4/5 X4 Extremities: No Edema Current Medications: Current Medications Sig/Sydni Start time Last Medication Dose Route Stop Time Status Admin Acetaminophen 1,000 MG Q8P PRN 11/07 0445 AC 11/07 N/A 1 UNIT IV 2037 Acetaminophen 650 MG Q6P PRN 11/07 0430 AC PO Ceftriaxone Sodium 1,000 MG 1700 11/09 1700 DC 11/11 IV 1544 Cephalexin 500 MG Q6 11/12 0733 AC PO Methylprednisolone 1,000 MG ONE ONE 11/11 1300 DC 11/11 Dextrose/Water 1,000 ML IV 11/11 1502 1545 Sodium Chloride 2 SPRAY Q4P PRN 11/12 0330 AC EL Zinc Oxide 1 FRACISCO BID 11/09 2200 AC 11/11 TOP 2222 Last 24 Hrs of Lab/Josh Results Last 24 Hrs of Labs/Mics: Laboratory Tests 11/12/16 0732: CBC w Diff Pending, WBC Pending, RBC Pending, Hgb Pending, Hct Pending, MCV Pending, MCH Pending, RDW Pending, Plt Count Pending, MPV Pending, PUBS MCHC Pending Assessment/Plan Assessment: #Alter mental status/confusion Likely secondary to multiple factors including UTI, hypercalcemia, hemorrhagic anemia(hematuria), long history of MS. Initial head CT did not show evidence of stroke. MRI; shows multiple white matter lesion that consists with a history of multiple sclerosis. Patient baseline mentation and ambulation got significantly affected. Neurology and urology on boards. PTH level is normal, vitamin D is within normal limits.(Patient take Vit D supplements). Neurology recommended 3 doses 1 g Solu-Medrol, today she will receive her last dose. Patient would like to go home instead of his TR. * Discontinue ceftriaxone she received 5 doses for UTI * We'll repeat CBC daily to follow-up white blood cell and hemoglobin * We will discuss with the outpatient case manager the need for safe discharge #Hematuria Patient had hematuria on the day of admission, she was found to have a low H&H. Patient initially received 2 packed RBCs after which she maintain a stable H&H. CT abdomen; Bladder wall thickening noted. This can be cause by UTI, however cancer needs to be excluded. Urology recommended avoiding anesthesia given her mental status change, especially that hematuria stopped, she is maintaining a good H&H and the cystoscope is not emergent and it's safer to be done as an elective Procedure after medical clearance. * Today we will start patient back on anticoagulant, she will then be observed for 24 hour. If stable she can be discharge in the morning. #Lower extremity edema left> right. Patient has symmetrical lower extremity edema, she also had leukocytosis with no focus of infection can be identified. Ultrasound of lower extremity was done ; DVT excluded. Today her extremity edema improved. Regular diet DVT prophylaxis FULL code Problem List: 1. Hematuria 2. Altered mental status 3. Anemia Pain Ratin Pain Location: NA Pain Goal: Remain pain free Pain Plan: See assessment and plan Tomorrow's Labs & Rationales: CBC it stayed in, but she will be most likely discharged today KAVON CROWDER MD 11/12/16 1207: Attending Review Statement Attending Statement Attending Statement: examined this patient, discuss w/resident/PA/SHRIMP CLEANER, agreed w/resident/PA/SHRIMP CLEANER, reviewed EMR data (avail), discussed with nursing, discussed with case mgmt, amended to note Attending Assessment/Plan: Patient seen and examined, feeling overall much better. She was started on IV steroids per neurology recommendations and today is the third dose of steroids. She has completed total of 5 day course of abx As urine cx remained neg, we can stop the abx. Pt's apixiban was held on admission. It was never restarted. Patient was having hematuria. Patient is on a Apixiban with history of DVT. He was at Dr. Deleon about his plans for urologic procedure. Ideally speaking we if we start the patient on anticoagulation, we should observe for another 24 hours make sure there is no bleed. I also called patient's primary care doctor Cuca Elizalde MD. As per his recommendations, patient at high risk of developing DVTs. Dr. Elizalde would like the patient to go back on the anticoagulation. We do not have any timeframe as to when plans to do cystoscopy. We're trying to contact Dr. Deleon. If we have a timeframe we can plan accordingly otherwise patient will be restarted on her Xarelto and then the granulation can be held prior to the procedure whenever it is planned. Discussed with patient's daughter over the phone.
[2016-11-12 08:09] LABS: ABSOLUTE BASOPHIL COUNT 0 /CUMM (0.0-0.2); ABSOLUTE EOSINOPHIL COUNT 0 /CUMM (0.0-0.7); ABSOLUTE GRANULOCYTE CT 13.8 /CUMM (1.4-6.5); ABSOLUTE LYMPH COUNT 0.4 /CUMM (1.2-3.4); ABSOLUTE MONOCYTE COUNT 0.7 /CUMM (0.10-0.60); BASOPHIL % 0.2 % (0.0-2.0); EOSINOPHIL % 0 % (0-5); HEMATOCRIT 26.7 % (37-47); MEAN CORPUSCULAR HGB 27.2 PG (27.0-31.0); MEAN CORPUSCULAR HGB CONC 32.1 G/DL (33.0-37.0); MEAN CORPUSCULAR VOLUME 84.8 FL (81.0-99.0); PLATELET COUNT 140 /CUMM (130-400); RBC DISTRIBUTION WIDTH 24.2 % (11.5-14.5); RED BLOOD CELL CT 3.15 /CUMM (4.20-5.40); WHITE BLOOD CELL COUNT 14.9 /CUMM (4.8-10.8)
[2016-11-12 09:45] LABS: GRANULOCYTE % 92.6 % (42.2-75.2)
--- NOTE | 2016-11-12 10:36 | PN- Neurology ---
Subjective Subjective: Feels great. Received Theraputty and exercise handouts from OT. Looking forward to going home today. Right hand function already improved. Review of Systems: No change Objective Vital Signs and I&Os Vital Signs Date Time Temp Pulse Resp B/P Pulse O2 O2 Flow FiO2 Ox Delivery Rate 11/12 0656 98.1 77 20 122/60 92 Room Air 11/11 2147 97.9 79 20 124/58 91 11/11 1455 98.2 90 20 120/70 96 Intake & Output 11/12 1600 11/12 0800 11/12 0000 11/11 1600 11/11 0800 11/11 0000 Intake Total 100 100 125 715 8219 Output Total 850 666 323 4888 575 Balance -750 -600 0 -1360 785 Intake, IV 1000 Intake, Oral 100 100 800 240 360 Number 1 1 Bowel Movements Output, Urine 850 152 750 4219 575 Patient 180 lb Weight Physical Exam: Awake alert oriented. Less dysarthric. Extraocular movements full. Head tremor. Improved rapid alternating and fine motor movements of both hands, particularly the right. Paraplegia unchanged Current Medications: Current Medications Sig/Sydni Start time Last Medication Dose Route Stop Time Status Admin Acetaminophen 1,000 MG Q8P PRN 11/07 0445 AC 11/07 N/A 1 UNIT IV 2037 Acetaminophen 650 MG Q6P PRN 11/07 0430 AC PO Ceftriaxone Sodium 1,000 MG 1700 11/09 1700 DC 11/11 IV 1544 Cephalexin 500 MG Q6 11/12 0733 AC PO Methylprednisolone 1,000 MG ONCE ONE 11/12 1015 AC Dextrose/Water 1,000 ML IV 11/12 1214 Methylprednisolone 1,000 MG ONE ONE 11/11 1300 DC 11/11 Dextrose/Water 1,000 ML IV 11/11 1502 1545 Sodium Chloride 2 SPRAY Q4P PRN 11/12 0330 AC EL Zinc Oxide 1 FRACISCO BID 11/09 2200 AC 11/11 TOP 2222 Assessment/Plan Assessment: MS, onset in teens, initially exacerbating remitting, currently secondary progressive, on no disease modifying agents at the present time Presented with encephalopathy in the setting of possible UTI though urine cultures negative Responded to 3 days of IV Solu-Medrol and IV antibiotics Plan: Okay to discharge to home from a neurologic standpoint [facility] family supervision Follow-up with me in our office [phone]
--- NOTE | 2016-11-12 12:04 | Patient Discharge Instructions ---
Discharge Instructions General Discharge Information You were seen/treated for: Confusion most likely cause by a complaint patient of urinary infection and MS exacerbation Special Instructions: Please follow-up with your primary care doctor within 1 week Please follow-up with your neurologist within 1 week Please follow-up with urologist within 1 week If any symptom of bleeding including blood and urine please come back to the emergency room immediately. Diet Continue normal diet: Yes Recommended Diet: regular Activity Full Activity/No Limits: Yes Activity Self Limited: Yes Acute Coronary Syndrome Inclusion Criteria At DC or during hospital stay patient has or had the following: ACS DIAGNOSIS No Discharge Core Measures Meds if any: Prescribed or Continued at Discharge Meds if any: NOT Prescribed or Continued at Discharge Congestive Heart Failure Inclusion Criteria At DC or during hospital stay patient has or had the following: CHF DIAGNOSIS No Discharge Core Measures Meds if any: Prescribed or Continued at Discharge Meds if any: NOT Prescribed or Continued at Discharge Cerebrovascular accident Inclusion Criteria At DC or during hospital stay patient has or had the following: CVA/TIA Diagnosis No Discharge Core Measures Meds if any: Prescribed or Continued at Discharge Meds if any: NOT Prescribed or Continued at Discharge Venous thromboembolism Inclusion Criteria VTE Diagnosis No VTE Type NONE VTE Confirmed by (Test) NONE Discharge Core Measures - Per Current guidelines, there needs to be overlap - treatment for the first 5 days of Warfarin therapy. - If discharged on Warfarin prior to 5 days of - overlap therapy, the patient will need to be - assessed for post discharge needs including - *Post discharge parental anticoagulation - *Warfarin and/or parental anticoagulation education - *Follow up date to check INR post discharge At least 5 days overlap therapy as Inpatient No Meds if any: Prescribed or Continued at Discharge Note: Overlap Therapy is Warfarin and Anticoagulant Meds if any: NOT Prescribed or Continued at Discharge
[2016-11-12] MEDS ORDERED: LEXAPRO10 M1 PO (13:00)
[2016-11-12] MEDS ORDERED: CRESTOR10 M1 PO (13:01)
--- NOTE | 2016-11-12 13:50 | NUR ---
SPEECH THERAPY: ORDERS FOR SWALLOW EVALUATION RECEIVED, PT CURRENTLY ON PROGRAM. ST ATTEMPTED TO SEE PT FOR DIET TOLERANCE/SPEECH THERAPY FOLLOW UP. UPON ST ARRIVAL, PT HAD ALREADY FINISHED LUNCH AND DECLINED ADDITIONAL PO INTAKE. PT REPORTING SPEECH IS BACK TO BASELINE. UPON OBSERVATION, PT SPEECH HAS IMPROVED SINCE LAST DYSPHAGIA TX. IN SPONTANEOUS CONVERSATION, PT ABLE TO PRODUCE FLUENT, SYNTACTICALLY CORRECT SENTENCES. MILD DYSARTHRIA PRESENT (HOWEVER, THIS IS PRESENT AT PT'S BASELINE). D/W RN. ST CONTINUE TO FOLLOW FOR DIET TOLERANCE CLINICALLY INDICATED.
[2016-11-12 14:40] VITALS: BP 120/70
[2016-11-12 21:51] VITALS: BP 120/68
[2016-11-13 06:27] VITALS: BP 116/62
--- NOTE | 2016-11-13 07:52 | PN- Housestaff ---
[facility] 11/13[facility]16 0752: Subjective Follow-up For: -Mental status -Hematuria -Anemia -History of MS -History of DVT Subjective: Afebrile, no signs of hematuria or other bleeding observed overnight however yesterday patient desaturated to 85% on room air, she was started on 1 L of oxygen after which her saturation became in the 90s. Patient denies shortness breath, cough, chest pain, fever, or chills. Review of Systems Constitutional: Reports: no symptoms, see HPI. Objective Last 24 Hrs of Vital Signs/I&O Vital Signs Date Time Temp Pulse Resp B/P Pulse O2 O2 Flow FiO2 Ox Delivery Rate 11/13 0627 97.5 63 20 116/62 93 Nasal 1.0L Cannula 11/13 0000 98 Nasal 2.0L Cannula 11/12 2151 98.2 80 20 120/68 98 11/12 1440 98.1 81 20 120/70 96 Intake & Output 11/13 1600 11/13 0800 11/13 0000 Intake Total 250 400 Output Total Balance 250 400 Intake, Oral 250 400 Number 2 Bowel Movements Physical Exam General Appearance: Alert, Oriented X3, Cooperative, No Acute Distress Skin: dry lower extremity HEENT: Atraumatic, PERRLA, EOMI, Mucous Membr. moist/pink Cardiovascular: Regular Rate, Normal S1, Normal S2, No Murmurs Lungs: chest sounds mildly congested Abdomen: Soft, No Tenderness Extremities: +1 edema with dry skin Current Medications: Current Medications Sig/Sydni Start time Last Medication Dose Route Stop Time Status Admin Acetaminophen 1,000 MG Q8P PRN 11/07 0445 DC 11/07 N/A 1 UNIT IV 2036 Acetaminophen 650 MG Q6P PRN 11/07 0430 AC PO Atorvastatin Calcium 10 MG 1700 11/12 1900 AC 11/12 PO 1945 Atorvastatin Calcium 10 MG 1700 11/12 1812 DC PO Cephalexin 500 MG Q6 11/12 0733 DC 11/12 PO 1128 Escitalopram Oxalate 10 MG DAILY 11/12 181 AC 11/12 PO 1944 Melatonin 3 MG AT BEDTIME 11/12 2200 AC 11/12 PO 2128 Methylprednisolone 1,000 MG ONCE ONE 11/12 1015 DC 11/12 Dextrose/Water 1,000 ML IV 11/12 1214 1128 Patient Medication 1 ED .STK-MED ONE 11/12 1338 [facility] ED 11/12 1339 Rivaroxaban 20 MG 1700 11/12 1700 AC 11/12 PO 1748 Sodium Chloride 2 SPRAY Q4P PRN 11/12 0330 AC EL Zinc Oxide 1 FRACISCO BID 11/09 2200 AC 11/12 TOP 2128 Last 24 Hrs of Lab/Josh Results Last 24 Hrs of Labs/Mics: Laboratory Tests 11/13/16 0615: CBC w Diff Pending, WBC Pending, RBC Pending, Hgb Pending, Hct Pending, MCV Pending, MCH Pending, RDW Pending, Plt Count Pending, MPV Pending, Gran % Pending, Lymphocytes % Pending, Monocytes % Pending, Eosinophils % Pending, Basophils % Pending, Absolute Granulocytes Pending, Absolute Lymphocytes Pending , Absolute Monocytes Pending, Absolute Eosinophils Pending, Absolute Basophils Pending, PUBS MCHC Pending Assessment/Plan Assessment: #Alter mental status/confusion Likely secondary to multiple factors including UTI, hypercalcemia, hemorrhagic anemia(hematuria), long history of MS. Initial head CT did not show evidence of stroke. MRI; shows multiple white matter lesion that consists with a history of multiple sclerosis. Patient baseline mentation and ambulation got significantly affected. Neurology and urology on boards. PTH level is normal, vitamin D is within normal limits.(Patient take Vit D supplements). Neurology recommended 3 doses 1 g Solu-Medrol, today she will receive her last dose. Was given Ceftriaxone 5 doses for possible UTI. Patient dropped H&H after starting her Xarelto yesterday at 6 PM. * We repeat CBC at 6 PM and tomorrow morning if patient stayed in the hospital * We will discuss with the casework specialist the need for safe discharge, patient would like to go home not short-term rehabilitation. #Hematuria Patient had hematuria on the day of admission, she was found to have a low H&H. Patient initially received 2 packed RBCs after which she maintain a stable H&H. CT abdomen; Bladder wall thickening noted. This can be cause by UTI, however cancer needs to be excluded. Urology recommended avoiding anesthesia given her mental status change, especially that hematuria stopped, she is maintaining a good H&H and the cystoscope is not emergent and it's safer to be done as an elective Procedure after medical clearance. * Today we will start patient back on anticoagulant, she will then be observed for 24 hour. If stable she can be discharge in the morning. #Lower extremity edema left> right. Patient has symmetrical lower extremity edema, she also had leukocytosis with no focus of infection can be identified. Ultrasound of lower extremity was done ; DVT excluded. Today her extremity edema improved. #Desaturation to 85% Last night patient desaturated to 85%, TRC was called and the start patient on 1 L of oxygen, this morning we tried to wean the patient however she desaturated to 85 again. chest x-ray is consistent with pleural effusion as well as some atelectasis, patient will be given a 20 mg of IV Lasix. We will try to wean her off oxygen again later today. Regular diet DVT prophylaxis FULL code Problem List: 1. Altered mental status 2. Hematuria 3. Multiple sclerosis exacerbation 4. Anemia Pain Ratin Pain Location: See assessment and plan Pain Goal: Remain pain free Pain Plan: See assessment and plan Tomorrow's Labs & Rationales: CBC and BEP if did not get discharged VEL TRAMMELLKAVON 11/13/16 1120: Attending MD Review Statement Attending Statement Attending MD Statement: examined this patient, discuss w/resident/PA/TESTER WASTE DISPOSAL LEAKAGE, agreed w/resident/PA/TESTER WASTE DISPOSAL LEAKAGE, reviewed EMR data (avail), discussed with nursing, discussed with case mgmt, reviewed images, amended to note Attending Assessment/Plan: Patient seen and examined, complain of some shortness of breath. She still requiring oxygen. Repeat chest x-ray this morning showed some pleural effusion as well as atelectasis. Vital Signs Date Time Temp Pulse Resp B/P Pulse O2 O2 Flow FiO2 Ox Delivery Rate 11/13 0906 97.2 11/13 0627 97.5 63 20 116/62 93 Nasal 1.0L Cannula 11/13 0000 98 Nasal 2.0L Cannula 11/12 2151 98.2 80 20 120/68 98 11/12 1440 98.1 81 20 120/70 96 on exam; aox3, nad. cv; s1,s2, rrr resp; clear abd; soft, nt, bs+ ext; 2+ edema b/l and dry scaly skin. Laboratory Tests 11/13 0615 Hematology CBC w Diff NO MAN DIFF REQ WBC (4.8 - 10.8 /CUMM) 12.6 H RBC (4.20 - 5.40 /CUMM) 2.88 L Hgb (12.0 - 16.0 G/DL) 7.9 L Hct (37 - 47 %) 24.3 L MCV (81.0 - 99.0 FL) 84.5 MCH (27.0 - 31.0 PG) 27.5 RDW (11.5 - 14.5 %) 25.5 H Plt Count (130 - 400 /CUMM) 169 MPV (7.4 - 10.4 FL) 9.8 Gran % (42.2 - 75.2 %) 83.1 H Lymphocytes % (20.5 - 51.1 %) 10.5 L Monocytes % (1.7 - 9.3 %) 6.1 Eosinophils % (0 - 5 %) 0.1 Basophils % (0.0 - 2.0 %) 0.2 Absolute Granulocytes (1.4 - 6.5 /CUMM) 10.5 H Absolute Lymphocytes (1.2 - 3.4 /CUMM) 1.3 Absolute Monocytes (0.10 - 0.60 /CUMM) 0.8 H Absolute Eosinophils (0.0 - 0.7 /CUMM) 0 Absolute Basophils (0.0 - 0.2 /CUMM) 0 PUBS MCHC (33.0 - 37.0 G/DL) 32.5 L A/P: 56-year-old female with history significant for multiple sclerosis, not on any particular treatment except for baclofen for muscle spasms, history of DVT on Xarelto who is admitted with mild confusion, acute blood loss anemia, grossly hematuria hypercalcemia a as well as possible UTI. Patient received total of 5 days of antibiotics and that it was discontinued secondary to urine cultures remain negative. Urology did not plan to do any procedures therefore we have resumed her Xarelto. There is a slight drop in her H&H today but will monitor. No evidence of any gross hematuria. She is now hypoxic and requiring oxygen. Her chest x-ray is consistent with pleural effusion as well as some atelectasis. Give her small dose of IV Lasix, encourage out of bed to chair and encourage incentive spirometry. Continue the rest of the medications. We'll try to taper her oxygen. If hypoxia improves and if we are able to taper her off oxygen in the next 24 hours , she'll be discharged home.
[2016-11-13 07:58] LABS: ABSOLUTE BASOPHIL COUNT 0 /CUMM (0.0-0.2); ABSOLUTE EOSINOPHIL COUNT 0 /CUMM (0.0-0.7); ABSOLUTE GRANULOCYTE CT 10.5 /CUMM (1.4-6.5); ABSOLUTE LYMPH COUNT 1.3 /CUMM (1.2-3.4); ABSOLUTE MONOCYTE COUNT 0.8 /CUMM (0.10-0.60); BASOPHIL % 0.2 % (0.0-2.0); EOSINOPHIL % 0.1 % (0-5); GRANULOCYTE % 83.1 % (42.2-75.2); HEMATOCRIT 24.3 % (37-47); MEAN CORPUSCULAR HGB 27.5 PG (27.0-31.0); MEAN CORPUSCULAR HGB CONC 32.5 G/DL (33.0-37.0); MEAN CORPUSCULAR VOLUME 84.5 FL (81.0-99.0); MEAN PLATELET VOLUME 9.8 FL (7.4-10.4); PLATELET COUNT 169 /CUMM (130-400); RBC DISTRIBUTION WIDTH 25.5 % (11.5-14.5); RED BLOOD CELL CT 2.88 /CUMM (4.20-5.40); WHITE BLOOD CELL COUNT 12.6 /CUMM (4.8-10.8)
--- NOTE | 2016-11-13 08:07 | RADIOLOGY REPORT ---
EXAMINATION: XR PORTABLE CHEST CLINICAL INFORMATION: Desaturating to 85%. COMPARISON: 11/09/2016 TECHNIQUE: Portable AP view of the chest was obtained. FINDINGS: The cardiomediastinal silhouette is stable. There are bibasilar airspace opacities, now with increased opacity extending into the mid to upper lung hernandez, presumably related to layering effusions and adjacent atelectasis, an underlying infiltrate is not excluded. No pneumothorax is appreciated. IMPRESSION: Bilateral layering pleural effusions with adjacent airspace opacities likely reflecting atelectasis, underlying aspiration/pneumonia is not excluded
[2016-11-13 14:38] VITALS: BP 120/70
[2016-11-13 18:32] LABS: ABSOLUTE EOSINOPHIL COUNT 0 /CUMM (0.0-0.7); EOSINOPHIL % 0 % (0-5); MEAN CORPUSCULAR HGB 26.9 PG (27.0-31.0)
[2016-11-13 18:37] LABS: ABSOLUTE BASOPHIL COUNT 0.1 /CUMM (0.0-0.2); ABSOLUTE GRANULOCYTE CT 15.4 /CUMM (1.4-6.5); ABSOLUTE MONOCYTE COUNT 1.3 /CUMM (0.10-0.60); BASOPHIL % 0.3 % (0.0-2.0); GRANULOCYTE % 82.4 % (42.2-75.2); HEMATOCRIT 27.8 % (37-47); MEAN CORPUSCULAR HGB CONC 31.5 G/DL (33.0-37.0); MEAN CORPUSCULAR VOLUME 85.3 FL (81.0-99.0); MEAN PLATELET VOLUME 9.3 FL (7.4-10.4); RBC DISTRIBUTION WIDTH 26.1 % (11.5-14.5); RED BLOOD CELL CT 3.26 /CUMM (4.20-5.40); WHITE BLOOD CELL COUNT 18.7 /CUMM (4.8-10.8)
[2016-11-13 18:40] LABS: PLATELET COUNT 278 /CUMM (130-400)
[2016-11-13 23:47] VITALS: BP 110/60
[2016-11-14 06:49] VITALS: BP 110/64
--- NOTE | 2016-11-14 07:25 | PN- Housestaff ---
See Addendum Subjective Follow-up For: -Mental status change -Hematuria -Anemia -History of MS -History of DVT -Respiratory failure Subjective: Afebrile, WBC increased to 18,000 last night (last steroid was on 11/12). This morning CBC still pending, we asked the lab to include bands. Patient saturating in low 90s on 2 L of oxygen. This morning patient has left calf muscle tenderness on examination. She denies cough, chest pain, fever or chills. Review of Systems Constitutional: Reports: no symptoms. Objective Last 24 Hrs of Vital Signs/I&O Vital Signs Date Time Temp Pulse Resp B/P Pulse O2 O2 Flow FiO2 Ox Delivery Rate 11/14 0649 97.4 67 20 110/64 93 Nasal 2.0L Cannula 11/14 0000 Nasal 2.0L Cannula 11/13 2347 97.5 60 20 110/60 93 11/13 1600 92 Nasal 2.0L Cannula 11/13 1438 98.2 68 20 120/70 92 11/13 0906 97.2 Intake & Output 11/14 0800 11/14 0000 11/13 1600 Intake Total 400 400 Output Total 1 Balance 400 399 Intake, IV 0 Intake, Oral 400 400 Number 1 2 1 Bowel Movements Output, Stool 1 Physical Exam General Appearance: Alert, Oriented X3, Cooperative, No Acute Distress Skin: No Rashes HEENT: Atraumatic, PERRLA, EOMI, Mucous Membr. moist/pink Cardiovascular: Regular Rate, Normal S1, Normal S2, No Murmurs Lungs: Clear to Auscultation Abdomen: Normal Bowel Sounds, Soft, No Tenderness Extremities: No Clubbing, No Cyanosis, +1 edema in lower extremity bilaterally Current Medications: Current Medications Sig/Sydni Start time Last Medication Dose Route Stop Time Status Admin Acetaminophen 650 MG Q6P PRN 11/07 0430 AC PO Atorvastatin Calcium 10 MG 11/12 1900 AC 11/13 PO 174 Escitalopram Oxalate 10 MG 11/13 1700 AC 11/13 PO 174 Escitalopram Oxalate 10 MG DAILY 11/12 181 DC 11/12 PO 1944 Furosemide 20 MG ONCE ONE 11/13 0930 DC 11/13 IV 11/13 0931 1155 Melatonin 3 MG AT BEDTIME 11/12 2200 AC 11/13 PO 211 Rivaroxaban 20 MG 17011/12 1700 AC 11/13 PO 1747 Sodium Chloride 2 SPRAY Q4P PRN 11/12 0330 AC EL Zinc Oxide 1 FRACISCO BID 11/09 2200 11/14 TOP 0015 Last 24 Hrs of Lab/Josh Results Last 24 Hrs of Labs/Mics: Laboratory Tests 11/14/16 0700: CBC w Diff Pending, WBC Pending, RBC Pending, Hgb Pending, Hct Pending, MCV Pending, MCH Pending, RDW Pending, Plt Count Pending, MPV Pending, PUBS MCHC Pending 11/13/16 1810: CBC w Diff NO MAN DIFF REQ, RBC 3.26 L, MCV 85.3, MCH 26.9 L, RDW 26.1 H, MPV 9.3, Gran % 82.4 H, Lymphocytes % 10.6 L, Monocytes % 6.7, Eosinophils % 0, Basophils % 0.3, Absolute Granulocytes 15.4 H, Absolute Lymphocytes 2.0, Absolute Monocytes 1.3 H, Absolute Eosinophils 0, Absolute Basophils 0.1, PUBS MCHC 31.5 L Assessment/Plan Assessment: #Alter mental status/confusion Likely secondary to multiple factors including UTI, hypercalcemia, hemorrhagic anemia(hematuria), long history of MS. Initial head CT did not show evidence of stroke. MRI; shows multiple white matter lesion that consists with a history of multiple sclerosis with possible exacerbation. Patient baseline mentation and ambulation got significantly affected. Neurology and urology on boards. PTH level is normal, vitamin D is within normal limits.(Patient take Vit D supplements). She received 3 doses of 1 g Solu-Medrol. She Was given Ceftriaxone 5 doses for possible UTI. Patient white blood cell and H&H within acceptable range. * repeat CBC daily * We will discuss with the block and case maker the need for safe discharge, patient would like to go home not short-term rehabilitation. #Hematuria Patient had hematuria on the day of admission, she was found to have a low H&H. Patient initially received 2 packed RBCs after which she maintain a stable H&H. CT abdomen; Bladder wall thickening noted. This can be cause by UTI, however cancer needs to be excluded. Urology recommended avoiding anesthesia given her mental status change, especially that hematuria stopped, she is maintaining a good H&H and the cystoscope is not emergent and it's safer to be done as an elective Procedure after medical clearance. Patient restarted on Xarelto 20 mg, no sign of hematuria where observed. * CBC daily * We will refer her to see Dr. Deleon (urology) as an outpatient #Lower extremity edema left> right. Patient has symmetrical lower extremity edema, she also had leukocytosis with no focus of infection can be identified. Ultrasound of lower extremity was done ; DVT excluded. However this morning patient is complaining of left leg tenderness over the muscle. #Desaturation to 85% patient desaturated to 85% 48 hours ago. She saturating low 90s on 2 L oxygen. chest x-ray is consistent with pleural effusion as well as some atelectasis however pneumonia cannot be excluded. Patient has a history of DVT, her anticoagulant was held because massive hematuria and anemia. This morning she was complaining of left callus muscle tenderness on physical examination. Pulmonary embolism must be excluded. * We will CT angiogram. * Continue Xarelto Regular diet DVT prophylaxis FULL code Problem List: 1. Multiple sclerosis exacerbation 2. Anemia 3. Altered mental status 4. Hematuria Pain Ratin Pain Location: See assessment and plan Pain Goal: Remain pain free Pain Plan: See assessment and plan Tomorrow's Labs & Rationales: CBC and BEP
[2016-11-14 08:14] LABS: ABSOLUTE BASOPHIL COUNT 0 /CUMM (0.0-0.2); ABSOLUTE EOSINOPHIL COUNT 0.1 /CUMM (0.0-0.7); ABSOLUTE GRANULOCYTE CT 8.8 /CUMM (1.4-6.5); ABSOLUTE LYMPH COUNT 2.2 /CUMM (1.2-3.4); ABSOLUTE MONOCYTE COUNT 0.8 /CUMM (0.10-0.60); BASOPHIL % 0.1 % (0.0-2.0); HEMATOCRIT 27.2 % (37-47); MEAN CORPUSCULAR HGB 27.1 PG (27.0-31.0); MEAN CORPUSCULAR HGB CONC 31.8 G/DL (33.0-37.0); MEAN CORPUSCULAR VOLUME 85.4 FL (81.0-99.0); MEAN PLATELET VOLUME 8.6 FL (7.4-10.4); PLATELET COUNT 252 /CUMM (130-400); RBC DISTRIBUTION WIDTH 25.9 % (11.5-14.5); RED BLOOD CELL CT 3.19 /CUMM (4.20-5.40); WHITE BLOOD CELL COUNT 11.8 /CUMM (4.8-10.8)
--- NOTE | 2016-11-14 11:09 | CT SCAN REPORT ---
EXAMINATION: CT ANGIOGRAM OF THE CHEST WITH AND WITHOUT CONTRAST (CT PULMONARY ANGIOGRAM FOR PE) CLINICAL INFORMATION: Shortness of breath requiring oxygen. COMPARISON: Chest radiograph done on 11/13/2016. TECHNIQUE: Prior to contrast administration, noncontrast localization images were obtained. Subsequently, multidetector volumetric imaging was performed from the thoracic inlet to below the diaphragms following the administration of 80 mL Omnipaque 350 intravenous contrast. No contrast reaction reported Sagittal, coronal, and MIP oblique sagittal reformatted images were obtained on the CT workstation, uploaded to PACS, and reviewed. Total exam dose-length product 464.85 mGy-cm. FINDINGS: QUALITY OF STUDY/CONTRAST BOLUS: Satisfactory. PULMONARY ARTERIES: No central or segmental pulmonary emboli. THORACIC AORTA: No aneurysm or dissection. LUNG: Extensive groundglass opacities are noted predominantly involving the central part of both upper lobes (right greater than left), and few patchy areas of groundglass opacities at both lower lobe (right greater than left). Differential diagnostic consideration would include infectious, inflammatory process, pulmonary edema as well as hypersensitivity pneumonitis including interstitial pneumonia. In addition, compressive atelectatic changes are noted at both lung bases posteromedially likely secondary to small to moderate-sized bilateral pleural effusions. The tracheobronchial tree appeared patent. PLEURA: Fmgic-kt-okmfofgw bilateral pleural effusions are present. MEDIASTINUM: Mild cardiomegaly is present. No pericardial effusion. Few shotty prevascular, aortopulmonary and paratracheal as well as subcarinal lymph nodes noted. No evidence of septal bowing or right heart strain. CHEST WALL/AXILLA: No axillary or internal mammary lymphadenopathy. UPPER ABDOMEN: The visualized superior part of the right kidney appears slightly lobulated, may represent normal variation. There is no adrenal mass present. No reflux of contrast into the hepatic veins to suggest elevated right heart pressures. OSSEOUS STRUCTURES: No acute or suspicious osseous abnormality. There is a radiopaque lead identified within the intrathecal space, the visualized part of the lead appear to be intact. IMPRESSION: 1. No CT evidence of pulmonary embolism is present. 2. Extensive nonspecific groundglass airspace disease however is present predominantly involving both upper lobes ((right greater than left). Although nonspecific, possible differential diagnostic consideration is given as above. 3. Ediwd-ow-uyewpaes bilateral pleural effusions, mild cardiomegaly and nonspecific solitary prevascular, aortopulmonary and paratracheal as well as subcarinal lymph nodes are noted. 4. The visualized superior part of the right kidney appear lobulated likely represent normal variation. 5. Incidental note is made of a partially visualized radiopaque lead seen within the intrathecal space, the visualized part of the lead appear to be intact.
--- NOTE | 2016-11-14 11:42 | NUR ---
0950- OFF FLOOR VIA STRETCHER FOR CTA 1100- RETURNED TO FLOOR FROM CT SCAN
[2016-11-14 15:33] VITALS: BP 125/82
[2016-11-14 22:14] VITALS: BP 134/60
[2016-11-15 07:28] VITALS: BP 130/64
--- NOTE | 2016-11-15 07:29 | PN- Housestaff ---
[facility] 0729: Subjective Follow-up For: -Mental status -Hematuria -Anemia -History of MS -History of DVT Subjective: Afebrile, WBC improved. Patient today saturating 90s on room air. No acute overnight events reported. Patient looks relaxed and comfortable and would like to be discharged today. She denies cough, chest pain, fever or chills. Review of Systems Constitutional: Reports: no symptoms. Objective Last 24 Hrs of Vital Signs/I&O Vital Signs Date Time Temp Pulse Resp B/P Pulse O2 O2 Flow FiO2 Ox Delivery Rate 11/15 1015 63 18 91 Room Air 11/15 0800 91 Room Air 11/15 0728 98.0 60 20 130/64 93 Room Air 11/15 0000 94 Nasal 2.0L Cannula 11/14 2214 97.8 66 20 134/60 94 Nasal 2.0L Cannula 11/14 1533 97.0 90 20 125/82 92 Intake & Output 11/15 1600 11/15 0800 11/15 0000 Intake Total 240 100 Output Total Balance 240 100 Intake, Oral 240 100 Physical Exam General Appearance: Alert, Oriented X3, Cooperative, No Acute Distress Skin: No Rashes HEENT: Atraumatic, PERRLA, EOMI, Mucous Membr. moist/pink Cardiovascular: Regular Rate, Normal S1, Normal S2, No Murmurs Lungs: Clear to Auscultation, Normal Air Movement Abdomen: Soft, No Tenderness Neurological: Normal Speech Extremities: No Clubbing, No Cyanosis, trace B/L LE edema Current Medications: Current Medications Sig/Sydni Start time Last Medication Dose Route Stop Time Status Admin Acetaminophen 650 MG Q6P PRN 11/07 0430 AC PO Atorvastatin Calcium 10 MG 11/12 1900 AC 11/14 PO 1739 Escitalopram Oxalate 10 MG 0 11/13 1700 AC 11/14 PO 1739 Melatonin 3 MG AT BEDTIME 11/12 2200 AC 11/13 PO 2116 Patient Medication 1 ED .STK-MED ONE 11/15 1349 MA Teaching ED 11/15 1350 Patient Medication 1 ED .STK-MED ONE 11/14 1420 MA Teaching ED 11/14 1421 Rivaroxaban 20 MG 1700 11/12 1700 AC 11/14 PO 1739 Sodium Chloride 2 SPRAY Q4P PRN 11/12 0330 AC EL Zinc Oxide 1 FRACISCO BID 11/09 2200 AC 11/15 TOP 1006 Last 24 Hrs of Lab/Josh Results Last 24 Hrs of Labs/Mics: Laboratory Tests 11/15/16 0640: Anion Gap 6, Estimated GFR > 60, BUN/Creatinine Ratio 32.5 H, CBC w Diff NO MAN DIFF REQ, RBC 3.18 L, MCV 84.7, MCH 27.0, RDW 24.8 H, MPV 8.7, Gran % 78.0 H, Lymphocytes % 13.4 L, Monocytes % 6.4, Eosinophils % 2.2, Basophils % 0 L, Absolute Granulocytes 10.0 H, Absolute Lymphocytes 1.7, Absolute Monocytes 0.8 H, Absolute Eosinophils 0.3, Absolute Basophils 0, PUBS MCHC 31.9 L Assessment/Plan Assessment: #Alter mental status/confusion Likely secondary to multiple factors including UTI, hypercalcemia, hemorrhagic anemia(hematuria), long history of MS. Initial head CT did not show evidence of stroke. MRI; shows multiple white matter lesion that consists with a history of multiple sclerosis with possible exacerbation. Patient baseline mentation and ambulation got significantly affected. Neurology and urology on boards. PTH level is normal, vitamin D is within normal limits.(Patient take Vit D supplements). She received 3 doses of 1 g Solu-Medrol. She Was given Ceftriaxone 5 doses for possible UTI. Patient white blood cell and H&H within acceptable range. Patient refused short-term rehabilitation and would like to go home with home services. * Patient will be discharged today * She will follow with her primary care doctor as well as Dr. Ramirez from neurology as an outpatient. #Hematuria Patient had hematuria on the day of admission, she was found to have a low H&H. Patient initially received 2 packed RBCs after which she maintain a stable H&H. CT abdomen; Bladder wall thickening noted. This can be cause by UTI, however cancer needs to be excluded. Urology recommended avoiding anesthesia given her mental status change, especially that hematuria stopped, she is maintaining a good H&H and the cystoscope is not emergent and it's safer to be done as an elective Procedure after medical clearance. Patient restarted on Xarelto 20 mg, no sign of hematuria where observed. * We will refer her to see Dr. Deleon (urology) as an outpatient. #Lower extremity edema left> right. Patient has symmetrical lower extremity edema, she also had leukocytosis with no focus of infection can be identified. Ultrasound of lower extremity was done ; DVT excluded. #Desaturation to 85% patient desaturated to 85% at some point during this admission. she was saturating low 90s on 2 L oxygen. chest x-ray is consistent with pleural effusion as well as some atelectasis. Patient has a history of DVT, her anticoagulant was held because massive hematuria and anemia. CT was done and pulmonary embolism was excluded. * Continue Xarelto Regular diet DVT prophylaxis Xarelto FULL code Problem List: 1. Altered mental status 2. Anemia 3. Hematuria 4. Multiple sclerosis exacerbation Pain Ratin Pain Location: see A&P Pain Goal: Remain pain free Pain Plan: see A&P Tomorrow's Labs & Rationales: None as patient is due for discharge today VEL TRAMMELL,[facility] 11/15/16 1325: Attending MD Review Statement Attending Statement Attending MD Statement: examined this patient, discuss w/resident/PA/ASPHALT SMOOTHER, agreed w/resident/PA/ASPHALT SMOOTHER, reviewed EMR data (avail), discussed with nursing, discussed with case mgmt, amended to note Attending Assessment/Plan: Patient seen and examined, overall feeling much better. Her oxygen saturation is now remaining above 90% on room air. H&H remained stable. Patient is medically stable for discharge home today with home services. She will follow with her primary care doctor as well as Dr. Ramirez from neurology as an outpatient.
[2016-11-15 08:09] LABS: ABSOLUTE BASOPHIL COUNT 0 /CUMM (0.0-0.2); ABSOLUTE EOSINOPHIL COUNT 0.3 /CUMM (0.0-0.7); ABSOLUTE LYMPH COUNT 1.7 /CUMM (1.2-3.4); ABSOLUTE MONOCYTE COUNT 0.8 /CUMM (0.10-0.60); BASOPHIL % 0 % (0.0-2.0); EOSINOPHIL % 2.2 % (0-5); HEMATOCRIT 26.9 % (37-47); MEAN CORPUSCULAR HGB CONC 31.9 G/DL (33.0-37.0); MEAN CORPUSCULAR VOLUME 84.7 FL (81.0-99.0); MEAN PLATELET VOLUME 8.7 FL (7.4-10.4); PLATELET COUNT 335 /CUMM (130-400); RBC DISTRIBUTION WIDTH 24.8 % (11.5-14.5); RED BLOOD CELL CT 3.18 /CUMM (4.20-5.40); WHITE BLOOD CELL COUNT 12.9 /CUMM (4.8-10.8)
--- NOTE | 2016-11-15 12:00 | NUR ---
PT HOYERED TO CHAIR FROM BED. PT ON RA. DENIES DYSPNEA OR DISTRESS. DENIES CHEST TIGHTNESS. STATES COMFORTABLE IN CHAIR. O2 SAT 92-93%. FISH CLEANER CHRISTOPHER NOTIFIED. OKAY TO DC HOME TODAY.
== END 2016-11-15 15:00 | disposition home health service (06) | DRG 811 ==
LOC: CANRESERV → ENRESERVDT → ENRESERVTM → ERH 22:38 → ENPENDDIS 11-07 01:43 → CRI 11-07 01:43 → ERHI 11-07 01:43 → 2NA 11-07 01:43 → ERHI 11-07 08:58 → EDBEDREQ 11-07 21:50 → ERHI 11-07 21:51 → CRI 11-08 04:19 → 2NA 11-08 13:19
PROVIDERS: Emergency Medicine; Student in an Organized Health Care Education/Training Program; ADMIT Internal Medicine
PROC: 30233N0 Transfusion of Autologous Red Blood Cells into Peripheral Vein, Percutaneous Approach (ICD-10-PCS; principal; 2016-11-07)
DX: D62 Acute posthemorrhagic anemia (principal); G93.40 Encephalopathy, unspecified; J90 Pleural effusion, not elsewhere classified; G82.20 Paraplegia, unspecified; E83.52 Hypercalcemia; G35 Multiple sclerosis; N39.0 Urinary tract infection, site not specified; J98.11 Atelectasis; Z86.718 Personal history of other venous thrombosis and embolism; Z79.01 Long term (current) use of anticoagulants; R31.9 Hematuria, unspecified; K59.00 Constipation, unspecified
CPT/HCPCS: 2NAP; 70551; 72141; ERO; 36415; 74177; 80307; 81001; 82436; 86920; 87040; 87086; 93005; 93010; 93970; 95816; 96374; 97110-GO; 97112-GO; 97162-GP; 97167-GO; 97530-GO; G0480; J0131; J0696; J1040; J1940; J2920; J3490; J7042; J7060; P9016; Q9965